=== PATIENT | female | born 1995 | race Caucasian/White ===

== ENCOUNTER 2023-08-23 13:01 | Outpatient (OUT) | payer OTHER, SELFPAY ==
--- NOTE | 2023-08-23 | US_ITS ---
[address] [address] Patient Name: ADDISON ARAGON MRN: [id number] date: 1995 Sex: F Assigned Patient Location: US Current Patient Location: LAB Accession/Order Number: [id number] Exam Date: 08/23/2023 13:04 Report Date: 08/23/2023 15:34 At the request of: ROSANNE HILL Procedure: US OB transvaginal EXAMINATION: US OB transvaginal HISTORY: MISSED MENSES COMPARISON: No relevant comparison available. FINDINGS: [place] intrauterine gestation Gestational sac: 3.2 cm, 8 weeks 2 days CRL: 3.0 cm, 9 weeks 6 days Yolk sac: 3.9 mm Heart rate: 174 bpm Cervix: Closed, 4.7 cm The uterus is normal, retroverted, anteflexed The ovaries are normal. Left ovarian corpus luteal cyst Clinical age: 10 weeks 0 days Clinical ALINA: 03/20/2024 Ultrasound age: 9 weeks 6 days Ultrasound ALINA: 03/21/2024 US/US OB transvaginal IMPRESSION: Viable [place] intrauterine gestation measuring 9 weeks 6 days Electronically authenticated by: HERACLIO GONZALEZ Date: 08/23/2023 15:34
== END 2023-08-23 13:02 | disposition home or self-care (01) ==
LOC: US 13:02
PROVIDERS: Visit Provider Obstetrics & Gynecology
DX: Z34.91 Encounter for supervision of normal pregnancy, unspecified, first trimester (principal); N92.6 Irregular menstruation, unspecified
CPT/HCPCS: 76817

== ENCOUNTER 2023-08-23 14:05 | Outpatient (OUT) | payer BC, SELFPAY ==
[2023-08-23 15:10] LABS: Estimated Average Glucose 103 mg/dL; Glycohemoglobin A1C 5.2 % (4.5-6.2)
[2023-08-23 15:18] LABS: Basophils Percent Auto 0.4 % (0.2-2.0); Eosinophils Absolute Auto 0.2 10^3/uL (0.0-0.7); Eosinophils Percent Auto 1.6 % (0.9-7.0); Hematocrit 38.5 % (36.0-48.0); Hemoglobin 12.7 g/dL (12.0-16.0); Immature Granulocytes Abs Auto 0.04 10^3/uL (0.00-0.03); Immature Granulocytes Pct Auto 0.4 % (0.0-0.5); Lymphocytes Absolute Auto 1.9 10^3/uL (1.2-3.8); Lymphocytes Percent Auto 17.6 % (20.5-60.0); Mean Corpuscular Hemoglobin 29.9 pg (26.7-34.0); Mean Corpuscular Volume 90.6 fL (81.0-99.0); Mean Platelet Volume 9.8 fL (9.5-13.5); Monocytes Absolute Auto 0.4 10^3/uL (0.3-0.8); Monocytes Percent Auto 3.9 % (1.7-12.0); Neutrophils Absolute Auto 8.4 10^3/uL (1.4-6.5); Neutrophils Percent Auto 76.1 % (43.0-75.0); Platelet Count 363 10^3/uL (150-450); Red Blood Count 4.25 10^6/uL (4.20-5.40); Red Cell Distribution Width 13.2 % (11.0-15.0)
[2023-08-23 15:47] LABS: Thyroid Stimulating Hormone 0.756 uIU/mL (0.358-3.740)
[2023-08-24 06:08] LABS: HBsAg Screen Negative (Negative); HCV Ab Non Reactive (Non Reactive); HIV Ab/p24 Ag Screen Non Reactive (Non Reactive); Rubella Antibodies, IgG 3.68 index (Immune >0.99)
[2023-08-24 12:08] LABS: Rapid Plasma Reagin, Quant Non Reactive titer (NonRea<1:1)
== END 2023-08-23 14:06 | disposition home or self-care (01) ==
PROVIDERS: Visit Provider Obstetrics & Gynecology
DX: Z34.80 Encounter for supervision of other normal pregnancy, unspecified trimester (principal); N92.6 Irregular menstruation, unspecified
CPT/HCPCS: 36415; 76817; 83036; 84443; 85025; 86592; 86762; 86803; 86850; 86900; 86901; 87086; 87340; 87389

== ENCOUNTER 2023-10-10 20:03 | Outpatient (REF) | payer BC, SELFPAY ==
[2023-10-15 16:09] LABS: Age Gdln ACOG Testing Note (.); IGP, rfx Aptima HPV ASCU Note (.)
== END 2023-10-10 20:04 | disposition home or self-care (01) ==
LOC: LAB 20:03
PROVIDERS: Visit Provider Physician Assistant
DX: Z01.419 Encounter for gynecological examination (general) (routine) without abnormal findings (principal)
CPT/HCPCS: G0145

== ENCOUNTER 2023-11-07 10:35 | Outpatient (OUT) | payer BC, SELFPAY ==
--- NOTE | 2023-11-07 10:39 | US_ITS ---
[address] [address] Patient Name: ADDISON ARAGON MRN: [id number] date: 1995 Sex: F Assigned Patient Location: [facility] Current Patient Location: [facility] Accession/Order Number: [id number] Exam Date: 11/07/2023 10:39 Report Date: 11/07/2023 12:01 At the request of: ROSANNE HILL Procedure: US OB anatomy EXAMINATION: US OB anatomy, US OB cervical length HISTORY: ANATOMY COMPARISON: No relevant comparison available. TECHNIQUE: Transabdominal sonographic examination was performed for obstetrical and evaluation. FINDINGS: Number: 1 Heart Rate: 144.0 bpm H.B. /min Amniotic Fluid Volume: Subjectively normal position: Variable Placental Location: ANTERIOR, placental edge 5.2 cm from the internal os Cervix Length: 4.5 cm , closed Normal anatomy: Lateral ventricles, cerebellum, posterior fossa, nose, lips, orbits, four-chamber heart, RVOT, LVOT, diaphragm, stomach, abdominal cord insertion, bladder, umbilical arteries, three-vessel cord, spine, extremities Suboptimal visualization: Kidneys BIOMETRY: BPD: 4.8 cm 20 weeks 3 days , 34% HC: 18.2 cm 20 weeks 4 days, 29% AC: 15.5 cm 20 weeks 5 days, 37% FL: 3.4 cm 20 weeks 4 days , 30% EFW:365.2 grams; 13 ounces, 32% FL/AC: 21.7 FL/BPD: 70.2 HC/AC: 1.2 GESTATIONAL AGE: Age by EDC: 20 weeks 6 days Age by current US: 20 weeks 4 days ALINA by current US: 03/22/2024 ALINA by EDC: 03/20/2024 US/US OB anatomy IMPRESSION: Suboptimal visualization of the kidneys, otherwise normal anatomy scan *Reference: [facility] Practice Guideline for the performance of Obstetric Ultrasound Examinations, July 08, 2007. Electronically authenticated by: HERACLIO GONZALEZ Date: 11/07/2023 12:01
--- NOTE | 2023-11-07 10:39 | US_ITS ---
[address] [address] Patient Name: ADDISON ARAGON MRN: [id number] date: 1995 Sex: F Assigned Patient Location: [facility] Current Patient Location: [facility] Accession/Order Number: [id number] Exam Date: 11/07/2023 10:39 Report Date: 11/07/2023 12:01 At the request of: ROSANNE HILL Procedure: US OB cervical length EXAMINATION: US OB anatomy, US OB cervical length HISTORY: ANATOMY COMPARISON: No relevant comparison available. TECHNIQUE: Transabdominal sonographic examination was performed for obstetrical and evaluation. FINDINGS: Number: 1 Heart Rate: 144.0 bpm H.B. /min Amniotic Fluid Volume: Subjectively normal position: Variable Placental Location: ANTERIOR, placental edge 5.2 cm from the internal os Cervix Length: 4.5 cm , closed Normal anatomy: Lateral ventricles, cerebellum, posterior fossa, nose, lips, orbits, four-chamber heart, RVOT, LVOT, diaphragm, stomach, abdominal cord insertion, bladder, umbilical arteries, three-vessel cord, spine, extremities Suboptimal visualization: Kidneys BIOMETRY: BPD: 4.8 cm 20 weeks 3 days , 34% HC: 18.2 cm 20 weeks 4 days, 29% AC: 15.5 cm 20 weeks 5 days, 37% FL: 3.4 cm 20 weeks 4 days , 30% EFW:365.2 grams; 13 ounces, 32% FL/AC: 21.7 FL/BPD: 70.2 HC/AC: 1.2 GESTATIONAL AGE: Age by EDC: 20 weeks 6 days Age by current US: 20 weeks 4 days ALINA by current US: 03/22/2024 ALINA by EDC: 03/20/2024 US/US OB cervical length IMPRESSION: Suboptimal visualization of the kidneys, otherwise normal anatomy scan *Reference: [facility] Practice Guideline for the performance of Obstetric Ultrasound Examinations, July 08, 2007. Electronically authenticated by: HERACLIO GONZALEZ Date: 11/07/2023 12:01
--- OUTSIDE RECORDS SUMMARY | 2023-11-07 10:42 | XMS_ITS | CCD ---
Author Name Unknown Address [id number] [place] [phone] Organization [facility] Care Team Providers Care Fishing Tackle Repairer Name Role Phone CHRISTO MCCOY Admitting Unavailable CHRISTO MCCOY Attending Unavailable CHRISTO MCCOY Consulting Unavailable CHRISTO MCCOY Admitting Unavailable CHRISTO MCCOY Attending Unavailable CHRISTO MCCOY Consulting Unavailable MAXIMINO GONZALEZ Attending Unavailable ROSANNE HILL Attending Unavailable ROSANNE HILL Attending Unavailable Problems Problem Classification Problem Date Documented Date Episodic/Chronic Immunizations and screening for infectious disease (1 source) Encounter for screening for infections with a predominantly sexual mode of transmission; Translations: [ENC SCREEN INFECTIONS SEXL TRANSMS] Onset: 06-04-2019 Episodic Other screening for suspected conditions (not mental disorders or infectious disease) (4 sources) Encounter for screening for malignant neoplasm of cervix; Translations: [ENC SCREENING MALIG NEOPLASM CERV] Onset: 06-02-2019 Episodic Results Test Name Value Interpretation Reference Range Facility [facility] PROGESTERONE, LC/MSon 07-30-2019 [facility] Progesterone LCMS 67 ng/dL Normal [facility] Comment on above: Result Comment: Adul t Female Follicular 15 - 70 Luteal 35 - 290 Performed By: #### C BC #### [facility] [address] [address] Ricardo Yuen FREE TESTOSTERONEon 07-28-20 19 Free Testosterone(Direct) 1.9 pg/mL Normal 0.0-4.2 [facility] Comment on above: Performed By: #### F RETEST #### [facility] [address] [address] Ricardo Yuen INSULINon 07-28-2019 Insulin 6.6 uIU/mL Normal 2.6-24.9 [facility] Comment on above: Performed By: #### C BC #### [facility] [address] [place] [address] Ricardo Yuen DHEA-SULFATEon 07-27-2019 DHEA-Sulfate 194.8 ug/dL Normal 84.8-378.0 [facility] Comment on above: Performed By: #### D MATT #### [facility] [address] [place] [address] Ricardo Yuen FSHon 07-27-2019 FSH 7.0 mIU/mL Normal [facility] Comment on above: Result Comment: Adul t Female: Follicular phase 3.5 - 12.5 Ovulation phase 4.7 - 21.5 Luteal phase 1.7 - 7.7 Postmenopausal 25.8 - 134.8 Performed By: #### L BCFS #### [facility] [address] [place] [address] Ricardo Yuen PROLACTINon 07-27-2019 Prolactin 13.1 ng/mL Normal 4.8-23.3 [facility] Comment on above: Performed By: #### P ROLAC #### [facility] [address] [place] [address] Ricardo Yuen CBC AUTO DIFFon 07-26-2019 Basophils (Bld) [#/Vol] 0.1 103/ul Normal 0.0-0.1 [facility] Comment on above: Performed By: #### C BC #### [facility] [address] [place] [address] Ricardo Alpa Basophils/100 WBC (Bld) 0.9 % Normal 0.2-2.0 [facility] Comment on above: Performed By: #### C BC #### [facility] [address] [place], [place] [id number] Ricardo Alpa Eosinophils (Bld) [#/Vol] 0.2 103/ul Normal 0.0-0.7 [facility] Comment on above: Performed By: #### C BC #### [facility] [address] [place] [address] Ricardo Alpa Eosinophils/100 WBC (Bld) 3.9 % Normal 0.9-7.0 [facility] Comment on above: Performed By: #### C BC #### [facility] [address] [place] [address] Ricardo Alpa Erythrocyte distribution width (RBC) [Ratio] 13.0 % Normal 11.0-15.0 [facility] Comment on above: Performed By: #### C BC #### [facility] [address] [place] [address] Ricardo Alpa Hematocrit (Bld) [Volume fraction] 44.0 % Normal 36.0-48.0 [facility] Comment on above: Performed By: #### C BC #### [facility] [address] [place] [address] Ricardo Alpa Hemoglobin (Bld) [Mass/Vol] 14.6 g/dL Normal 12.0-16.0 [facility] Comment on above: Performed By: #### C BC #### [facility] [address] [place] [address] Ricardo Alpa IG # 0.01 10e3/ul Normal 0.00-0.03 [facility] Comment on above: Performed By: #### C BC #### [facility] [address] [place] [address] Ricardo Alpa IG % 0.2 % Normal 0.0-0.5 [facility] Comment on above: Performed By: #### C BC #### [facility] [address] [place], [place] [id number] Ricardo Alpa Lymphocytes (Bld) [#/Vol] 1.7 103/ul Normal 1.2-3.8 [facility] Comment on above: Performed By: #### C BC #### [facility] [address] [place] [address] Ricardo Alpa Lymphocytes/100 WBC (Bld) 29.0 % Normal 20.5-60.0 [facility] Comment on above: Performed By: #### C BC #### [facility] [address] [place], [place] [id number] Ricardo Alpa MANUAL DIFF REQ NO Normal [facility] Comment on above: Performed By: #### C BC #### [facility] [address] [place], [place] [id number] Ricardo Alpa MCH (RBC) [Entitic mass] 30.0 pg Normal 26.7-34.0 [facility] Comment on above: Performed By: #### C BC #### [facility] [address] [place], [place] [id number] Ricardo Yuen MCHC (RBC) [Mass/Vol] 33.2 g/dL Normal 29.9-35.2 [facility] Comment on above: Performed By: #### C BC #### [facility] [address] [place], [place] [id number] Ricardo Yuen MCV (RBC) [Entitic vol] 90.5 fL Normal 81.0-99.0 [facility] Comment on above: Performed By: #### C BC #### [facility] [address] [place] [address] Ricardo Alpa Monocytes (Bld) [#/Vol] 0.3 103/ul Normal 0.3-0.8 [facility] Comment on above: Performed By: #### C BC #### [facility] [address] [place] [address] Ricardo Cruzen Monocytes/100 WBC (Bld) 5.5 % Normal 1.7-12.0 [facility] Comment on above: Performed By: #### C BC #### [facility] [address] [place] [address] Ricardo Alpa Neutrophils (Bld) [#/Vol] 3.4 103/ul Normal 1.4-6.5 [facility] Comment on above: Performed By: #### C BC #### [facility] [address] [place] [address] Ricardo Alpa Neutrophils/100 WBC (Bld) 60.5 % Normal 43.0-75.0 [facility] Comment on above: Performed By: #### C BC #### [facility] [address] [place], [place] [id number] Ricardoshawna Yuen Platelet mean volume (Bld) [Entitic vol] 10.2 fL Normal 9.5-13.5 [facility] Comment on above: Performed By: #### C BC #### [facility] [address] [place], [place] [address] Ricardoshawna Yuen Platelets (Bld) [#/Vol] 282 103/ul Normal 150-450 [facility] Comment on above: Performed By: #### C BC #### [facility] [address] [place], [place] [address] Ricardo Alpa RBC (Bld) [#/Vol] 4.86 106/ul Normal 4.20-5.40 [facility] Comment on above: Performed By: #### C BC #### [facility] [address] [place], [place] [address] Ricardo Alpa WBC (Bld) [#/Vol] 5.7 103/ul Normal 4.0-11.0 [facility] Comment on above: Performed By: #### C BC #### [facility] [address] [place] [address] Ricardoshawna Yuen GLYCOHEMOGLOBIN A1Con 2018 Glucose [Mass/Vol] 105 mg/dL Normal [facility] Comment on above: Performed By: #### A 1C #### [facility] [address] [place] [address] Ricardo Alpa HbA1c (Bld) [Mass fraction] 5.3 % Normal <=6.0 [facility] Comment on above: Performed By: #### A 1C #### [facility] [address] [place] [address] Ricardo Alpa LIPID PROFILEon 07-26-2019 CHOL-HDL RATIO NORM SEE BELOW Normal [facility] Comment on above: Result Comment: 3.3 - 4.4 LOW RISK 4.4 - 7.1 AVERAGE RISK 7.1 - 11.0 MODERATE RISK >11.0 HIGH RISK Performed By: #### C MP, TSH, LIPID #### [facility] [address] [place] [address] Ricardo Alpa Cholesterol [Mass/Vol] 174 mg/dL Normal <=200 [facility] Comment on above: Performed By: #### C MP, TSH, LIPID #### [facility] [address] [place] [address] Ricardo Alpa Cholesterol in HDL [Mass/Vol] > or = 60 mg/dl - LOW CARDIOVASCULAR RISK <40 mg/dl - HIGH CARDIOVASCULAR RISK Normal [facility] Comment on above: Performed By: #### C MP, TSH, LIPID #### [facility] [address] [place], [place] [address] Ricardo Alpa Cholesterol in HDL [Mass/Vol] 76 mg/dL Normal [facility] Comment on above: Performed By: #### C MP, TSH, LIPID #### [facility] [address] [place], [place] [address] Ricardo Alpa Cholesterol in LDL [Mass/Vol] 90.4 mg/dL Normal [facility] Comment on above: Performed By: #### C MP, TSH, LIPID #### [facility] [address] [place], [place] [address] Ricardo Alpa Cholesterol in LDL [Mass/Vol] SEE BELOW Normal [facility] Comment on above: Result Comment: <100 mg/dl OPTIMAL 100 - 129 mg/dl NEAR OR ABOVE OPTIMAL 130 - 159 mg/dl BORDERLINE HIGH 160 - 189 mg/dl HIGH >190 mg/dl VERY HIGH Performed By: #### C MP, TSH, LIPID #### [facility] [address] [place], [place] [address] Ricardo Alpa Cholesterol.total/Cho lesterol in HDL [Mass ratio] 2.3 {ratio} Normal [facility] Comment on above: Performed By: #### C MP, TSH, LIPID #### [facility] [address] [place], [place] [address] Ricardo Alpa Triglyceride [Mass/Vol] 38 mg/dL Normal <=150 [facility] Comment on above: Performed By: #### C MP, TSH, LIPID #### [facility] [address] [place], [place] [address] Ricardo Alpa VLDL CALC 7.6 mg/dL Normal [facility] Comment on above: Performed By: #### C MP, TSH, LIPID #### [facility] [address] [place], [place] [address] Ricardo Alpa PROF 14(COMP METB)on 019 Albumin [Mass/Vol] 4.6 g/dL Normal 3.5-5.0 [facility] Comment on above: Performed By: #### C MP, TSH, LIPID #### [facility] [address] [place], [place] [address] Ricardo Alpa Albumin/Globulin [Mass ratio] 1.3 {ratio} Normal [facility] Comment on above: Performed By: #### C MP, TSH, LIPID #### [facility] [address] [place], [place] [address] Ricardo Alpa ALP [Catalytic activity/Vol] 56 U/L Normal 38-126 [facility] Comment on above: Performed By: #### C MP, TSH, LIPID #### [facility] [address] [place], [place] [address] Ricardo Alpa ALT [Catalytic activity/Vol] 15 U/L Normal 9-52 [facility] Comment on above: Performed By: #### C MP, TSH, LIPID #### [facility] [address] [phone] Ricardo Alpa Anion gap [Moles/Vol] 11.8 mmol/L Normal [facility] Comment on above: Performed By: #### C MP, TSH, LIPID #### [facility] [address] [place], [place] [address] Ricardo Alpa AST [Catalytic activity/Vol] 13 U/L Critically low 14-36 [facility] Comment on above: Performed By: #### C MP, TSH, LIPID #### [facility] [address] [place], [place] [address] Ricardo Alpa Bilirubin Ql (U) 0.3 mg/dL Normal 0.2-1.3 [facility] Comment on above: Performed By: #### C MP, TSH, LIPID #### [facility] [address] [place], [place] [address] Ricardo Alpa Calcium [Mass/Vol] 9.4 mg/dL Normal 8.4-10.2 [facility] Comment on above: Performed By: #### C MP, TSH, LIPID #### [facility] [address] [place], [place] [address] Ricardo Alpa Chloride [Moles/Vol] 101 mmol/L Normal 98-107 [facility] Comment on above: Performed By: #### C MP, TSH, LIPID #### [facility] [address] [place], [place] [address] Ricardo Alpa CO2 [Moles/Vol] 29.2 mmol/L Normal 22.0-30.0 [facility] Comment on above: Performed By: #### C MP, TSH, LIPID #### [facility] [address] [place] [phone] Ricardo Alpa Creatinine [Mass/Vol] 0.66 mg/dL Normal 0.52-1.04 [facility] Comment on above: Performed By: #### C MP, TSH, LIPID #### [facility] [address] [place] [phone] Ricardo Alpa EGFR-AF SINGAPOREAN >60 Normal >=60 [facility] Comment on above: Performed By: #### C MP, TSH, LIPID #### [facility] [address] [phone] Ricardo Alpa EGFR-NON AF SINGAPOREAN >60 Normal >=60 [facility] Comment on above: Performed By: #### C MP, TSH, LIPID #### [facility] [address] [phone] Ricardo Alpa Globulin (S) [Mass/Vol] 3.5 g/dL Normal [facility] Comment on above: Performed By: #### C MP, TSH, LIPID #### [facility] [address] [phone] Ricardo Alpa Glucose [Mass/Vol] 88 mg/dL Normal 74-106 [facility] Comment on above: Performed By: #### C MP, TSH, LIPID #### [facility] [address] [phone] Ricardo Alpa Potassium [Moles/Vol] 4.0 mmol/L Normal 3.4-5.0 [facility] Comment on above: Performed By: #### C MP, TSH, LIPID #### [facility] [address] [phone] Ricardo Alpa Protein [Mass/Vol] 8.1 g/dL Normal 6.1-8.2 [facility] Comment on above: Performed By: #### C MP, TSH, LIPID #### [facility] [address] [address] Ricardo Alpa Sodium [Moles/Vol] 138 mmol/L Normal 137-145 [facility] Comment on above: Performed By: #### C MP, TSH, LIPID #### [facility] [address] [phone] Ricardo Alpa Urea nitrogen [Mass/Vol] 13.0 mg/dL Normal 7.0-17.0 [facility] Comment on above: Performed By: #### C MP, TSH, LIPID #### [facility] [address] [place] [address] Ricardo Alpa Urea nitrogen/Creatinine [Mass ratio] 19.7 mg/mg Normal [facility] Comment on above: Performed By: #### C MP, TSH, LIPID #### [facility] [address] [place] [address] Ricardo Alpa TSHon 07-26-2019 TSH Qn 0.572 uIU/mL Normal 0.470-4.680 [facility] Comment on above: Performed By: #### C MP, TSH, LIPID #### [facility] [address] [place] [address] Ricardo Alpa TSH Qn SEE BELOW Normal [facility] Comment on above: Result Comment: <0.3 4 UIU/ml HYPERTHYROID 0.34-5.60 UIU/ml EUTHYROID >5.60 UIU/ml HYPOTHYROID Performed By: #### C MP, TSH, LIPID #### [facility] [address] [place] [address] Ricardo Alpa PAP ACOG PANEL 3: 21 to 28on 06-05-2019 Age Gdln ACOG Testing Normal [facility] Comment on above: Performed By: #### [id number] #### [facility] [address] [place] [address] Ricardo Alpa Chlamydia, Nuc. Acid Amp Negative Normal Negative [facility] Comment on above: Result Comment: Perf ormed at: =G Performed By: #### [id number] #### [facility] [address] [place] [address] Ricardo Yuen DIAGNOSIS: Comment Normal [facility] Comment on above: Result Comment: NEGA TIVE FOR INTRAEPITHELIAL LESION OR MALIGNANCY. THIS SPECIMEN WAS RESCREENED PART OF OUR CHARGE MANAGER PROGRAM. Performed at: WB Performed By: #### [id number] #### [facility] [address] [place] [address] Ricardo Yuen Gonococcus, Nuc. Acid Amp Negative Normal Negative [facility] Comment on above: Result Comment: Perf ormed at: =G Performed By: #### [id number] #### [facility] [address] [place] [address] Ricardo Yuen Methodology: Comment Normal [facility] Comment on above: Result Comment: This liquid based ThinPrep(R) pap test was screened with the use of an image guided system. Performed at: WB Performed By: #### [id number] #### [facility] [address] [place] [address] Ricardo Alpa Note: Comment Normal [facility] Comment on above: Result Comment: The Pap smear is a screening test designed to aid in the detection of premalignant and malignant conditions of the uterine cervix. It is not a diagnostic procedure and should not be used as the sole means of detecting cervical cancer. Both false-positive and false-negative reports do occur. . Performed at: WB Performed By: #### [id number] #### [facility] [address] [place] [address] Ricardo Alpa Performed by: Comment Normal [facility] Comment on above: Result Comment: Nasima Blankenship, Auto Brake Mechanic (ASCP) Performed at: WB Performed By: #### [id number] #### [facility] [address] [place] [address] Ricardo Yuen QC reviewed by: Comment Normal [facility] [place] Comment on above: Result Comment: Joan Bautista, Auto Brake Mechanic (ASCP) Performed at: WB Performed By: #### [id number] #### [facility] [address] [place], [place] [address] Ricardoshawna Yuen Reflex Criteria: Comment [facility] Comment on above: Result Comment: The HPV DNA reflex criteria were not met with this specimen result therefore, no HPV testing was performed. . Performed at: WB Performed By: #### [id number] #### [facility] [address] [place], [place] [address] Ricardoshawna Yuen Specimen adequacy: Comment Normal [facility] Comment on above: Result Comment: Sati sfactory for evaluation. Endocervical and/or squamous metaplastic cells (endocervical component) are present. Performed at: WB Performed By: #### [id number] #### [facility] [address] [place], [place] [address] Ricardoshawna Yuen . . Normal [facility] Comment on above: Result Comment: Perf ormed at: WB Performed By: #### [id number] #### [facility] [address] [place], [place] [address] Ricardo Yuen Encounters Encounter Date Encounter Type Care Provider Facility Start: 10-10-2023 End: 10-10-2023 ambulatory MAXIMINO CARLOS Not Available Start: 09-12-2023 End: 09-12-2023 ambulatory ROSANNE SERGIO Not Available Start: 08-23-2023 End: 08-23-2023 ambulatory ROSANNE SERGIO Not Available Start: 07-26-2019 End: 07-27-2019 Patient encounter procedure CHRISTO MCCOY Facility:[facility] Start: 06-02-2019 End: 06-02-2019 Patient encounter procedure CHRISTO MCCOY Facility: Payers Date Payer Category Payer Unknown [id number] 1995 Unknown [id number] [id number] [id number] 1994 Unknown [id number] 2.16.84 [id number] 1994 Unknown [id number] 1994 Unknown [id number] 1994 Unknown [id number] 1959 Unknown [id number] Summary Purpose Family History No Family History Records FoundNo Family History Records Found Advance Directives No Advanced Directives Records FoundNo Advanced Directives Records Found Additional Source Comments INFORMATION SOURCE (unrecogn ized section and content) DATE CREATED AUTHOR 07/30/2019 [facility] DATE CREATED AUTHOR AUTHOR'S ORGANIZ ATION 10/11/2023 [facility] EPIC FOR RECORDS PERTAINING TO PATIENTS WHO ARE OR HAVE BEEN ENROLLED IN A CHEMICAL DEPENDENCY/SUBSTANCEABUSE PROGRAM, SOME INFORMATION MAY BE OMITTED. This clinical summary was aggregated from multiple sources. Caution should be exercised in using it in the provision of clinical care. This summary normalizes information from multiple sources, and as a consequence, information in this document may materially change the coding, format and clinical context of patient data. In addition, data may be omitted in some cases. CLINICAL DECISIONS SHOULD BE BASED ON THE PRIMARY CLINICAL RECORDS. [facility] [employer] provides no warranty or guarantee of the accuracy or completeness of information in this document.
== END 2023-11-07 10:36 | disposition home or self-care (01) ==
LOC: NOMS 10:36
PROVIDERS: Visit Provider Obstetrics & Gynecology
DX: Z34.92 Encounter for supervision of normal pregnancy, unspecified, second trimester (principal); Z36.89 Encounter for other specified antenatal screening
CPT/HCPCS: 36415; 76805; 76817; 82105

== ENCOUNTER 2023-11-07 12:18 | Outpatient (OUT) | payer BC, SELFPAY ==
--- OUTSIDE RECORDS SUMMARY | 2023-11-07 12:17 | XMS_ITS | CCD ---
Author Name Unknown Address [address] [place] [id number] Organization [facility] Care Team Providers Care Legal Entity Controller Name Role Phone CHRISTO MCCOY Admitting Unavailable [...] 07-30-2019 17-OH Progesterone LCMS 67 ng/dL Normal [facility] Comment on above: Result Comment: Adul t Female Follicular 15 - 70 Luteal 35 - 290 Performed By: #### C BC #### [facility] [address] [address] Ricardo Yuen FREE TESTOSTERONEon 07-28-20 19 Free Testosterone(Direct) 1.9 pg/mL Normal 0.0-4.2 [facility] Comment on above: Performed By: #### F RETEST #### [facility] [address] [address] Ricardo Yuen INSULINon 07-28-2019 Insulin 6.6 uIU/mL Normal 2.6-24.9 [facility] Comment on above: Performed By: #### C BC #### [facility] [address] [place] [address] Ricardo Yuen DHEA-SULFATEon 07-27-2019 DHEA-Sulfate 194.8 ug/dL Normal 84.8-378.0 [facility] Comment on above: Performed By: #### D MATT #### [facility] [address] [place] [address] Ricardo Yuen FSHon 07-27-2019 FSH 7.0 mIU/mL Normal [facility] Comment on above: Result Comment: Adul t Female: Follicular phase 3.5 - 12.5 Ovulation phase 4.7 - 21.5 Luteal phase 1.7 - 7.7 Postmenopausal 25.8 - 134.8 Performed By: #### L BCFS #### [facility] [address] [place] [address] Ricardo Yuen PROLACTINon 07-27-2019 Prolactin 13.1 ng/mL Normal 4.8-23.3 [facility] Comment on above: Performed By: #### P ROLAC #### [facility] [address] [place] [address] Ricardo Yuen CBC AUTO DIFFon 07-26-2019 Basophils (Bld) [#/Vol] 0.1 103/ul Normal 0.0-0.1 [facility] Comment on above: Performed By: #### C BC #### [facility] [address] [place] [address] Ricardo Alpa Basophils/100 WBC (Bld) 0.9 % Normal 0.2-2.0 [facility] Comment on above: Performed By: #### C BC #### [facility] [address] [place], [place] [id number] Ricardo Alpa Eosinophils (Bld) [#/Vol] 0.2 103/ul Normal 0.0-0.7 [facility] Comment on above: Performed By: #### C BC #### [facility] [address] [place] [address] Ricardo Alpa Eosinophils/100 WBC (Bld) 3.9 % Normal 0.9-7.0 [facility] Comment on above: Performed By: #### C BC #### [facility] [address] [place] [address] Ricadro Alpa Erythrocyte distribution width (RBC) [Ratio] 13.0 % Normal 11.0-15.0 [facility] Comment on above: Performed By: #### C BC #### [facility] [address] [place] [address] Ricardo Alpa Hematocrit (Bld) [Volume fraction] 44.0 % Normal 36.0-48.0 [facility] Comment on above: Performed By: #### C BC #### [facility] [address] [place] [address] Ricardo Alpa Hemoglobin (Bld) [Mass/Vol] 14.6 g/dL Normal 12.0-16.0 [facility] Comment on above: Performed By: #### C BC #### [facility] [address] [place] [address] Ricardo Alpa IG # 0.01 10e3/ul Normal 0.00-0.03 [facility] Comment on above: Performed By: #### C BC #### [facility] [address] [place] [address] Ricardo Alpa IG % 0.2 % Normal 0.0-0.5 [facility] Comment on above: Performed By: #### C BC #### [facility] [address] [place], [place] [phone] Ricardo Alpa Lymphocytes (Bld) [#/Vol] 1.7 103/ul Normal 1.2-3.8 [facility] Comment on above: Performed By: #### C BC #### [facility] [address] [place] [address] Ricardo Alpa Lymphocytes/100 WBC (Bld) 29.0 % Normal 20.5-60.0 [facility] Comment on above: Performed By: #### C BC #### [facility] [address] [place], [place] [phone] Ricardo Alpa MANUAL DIFF REQ NO Normal [facility] Comment on above: Performed By: #### C BC #### [facility] [address] [place], [place] [phone] Ricardo Alpa MCH (RBC) [Entitic mass] 30.0 pg Normal 26.7-34.0 [facility] Comment on above: Performed By: #### C BC #### [facility] [address] [place], [place] [id number] Ricardo Yuen MCHC (RBC) [Mass/Vol] 33.2 g/dL Normal 29.9-35.2 [facility] Comment on above: Performed By: #### C BC #### [facility] [address] [place], [place] [phone] Ricardo Yuen MCV (RBC) [Entitic vol] 90.5 fL Normal 81.0-99.0 [facility] Comment on above: Performed By: #### C BC #### [facility] [address] [place] [address] Ricardo Alpa Monocytes (Bld) [#/Vol] 0.3 103/ul Normal 0.3-0.8 [facility] Comment on above: Performed By: #### C BC #### [facility] [address] [place] [address] Ricardo Cruzen Monocytes/100 WBC (Bld) 5.5 % Normal 1.7-12.0 [facility] Comment on above: Performed By: #### C BC #### [facility] [address] [place] [address] Ricardo Alpa Neutrophils (Bld) [#/Vol] 3.4 103/ul Normal 1.4-6.5 [facility] Comment on above: Performed By: #### C BC #### [facility] [address] [place] [address] Ricardo Alpa Neutrophils/100 WBC (Bld) 60.5 % Normal 43.0-75.0 [facility] Comment on above: Performed By: #### C BC #### [facility] [address] [place], [place] [phone] Ricardoshawna Yuen Platelet mean volume (Bld) [Entitic vol] 10.2 fL Normal 9.5-13.5 [facility] Comment on above: Performed By: #### C BC #### [facility] [address] [place], [place] [address] Ricardoshawna Yuen Platelets (Bld) [#/Vol] 282 103/ul Normal 150-450 [facility] Comment on above: Performed By: #### C BC #### [facility] [address] [place], [place] [address] Ricardo Alpa RBC (Bld) [#/Vol] 4.86 106/ul Normal 4.20-5.40 [facility] Comment on above: Performed By: #### C BC #### [facility] [address] [place], [place] [address] Ricardo Alpa WBC (Bld) [#/Vol] 5.7 103/ul Normal 4.0-11.0 [facility] Comment on above: Performed By: #### C BC #### [facility] [address] [place] [address] Ricardoshawna Yuen GLYCOHEMOGLOBIN A1Con 2018 Glucose [Mass/Vol] 105 mg/dL Normal [facility] Comment on above: Performed By: #### A 1C #### [facility] [address] [place] [address] Ricardo Alpa HbA1c (Bld) [Mass fraction] 5.3 % Normal <=6.0 [facility] Comment on above: Performed By: #### A 1C #### [facility] [address] [place] [address] Ricardo Alpa LIPID PROFILEon 07-26-2019 CHOL-HDL RATIO NORM SEE BELOW Normal [facility] Comment on above: Result Comment: 3.3 - 4.4 LOW RISK 4.4 - 7.1 AVERAGE RISK 7.1 - 11.0 MODERATE RISK >11.0 HIGH RISK Performed By: #### C MP, TSH, LIPID #### [facility] [address] [place] [address] Ricardo Alpa Cholesterol [Mass/Vol] 174 mg/dL Normal <=200 [facility] Comment on above: Performed By: #### C MP, TSH, LIPID #### [facility] [address] [place] [address] Ricardo Alpa Cholesterol in HDL [Mass/Vol] > or = 60 mg/dl - LOW CARDIOVASCULAR RISK <40 mg/dl - HIGH CARDIOVASCULAR RISK Normal [facility] Comment on above: Performed By: #### C MP, TSH, LIPID #### [facility] [address] [place], [place] [address] Ricardo Alpa Cholesterol in HDL [Mass/Vol] 76 mg/dL Normal [facility] Comment on above: Performed By: #### C MP, TSH, LIPID #### [facility] [address] [place], [place] [address] Ricardo Alpa Cholesterol in LDL [Mass/Vol] 90.4 mg/dL Normal [facility] Comment on above: Performed By: #### C MP, TSH, LIPID #### [facility] [address] [place], [place] [address] Ricardo Alpa Cholesterol in LDL [Mass/Vol] SEE BELOW Normal [facility] Comment on above: Result Comment: <100 mg/dl OPTIMAL 100 - 129 mg/dl NEAR OR ABOVE OPTIMAL 130 - 159 mg/dl BORDERLINE HIGH 160 - 189 mg/dl HIGH >190 mg/dl VERY HIGH Performed By: #### C MP, TSH, LIPID #### [facility] [address] [place], [place] [address] Ricardo Alpa Cholesterol.total/Cho lesterol in HDL [Mass ratio] 2.3 {ratio} Normal [facility] Comment on above: Performed By: #### C MP, TSH, LIPID #### [facility] [address] [place], [place] [address] Ricardo Alpa Triglyceride [Mass/Vol] 38 mg/dL Normal <=150 [facility] Comment on above: Performed By: #### C MP, TSH, LIPID #### [facility] [address] [place], [place] [address] Ricardo Alpa VLDL CALC 7.6 mg/dL Normal [facility] Comment on above: Performed By: #### C MP, TSH, LIPID #### [facility] [address] [place], [place] [address] Ricardo Alpa PROF 14(COMP METB)on 019 Albumin [Mass/Vol] 4.6 g/dL Normal 3.5-5.0 [facility] Comment on above: Performed By: #### C MP, TSH, LIPID #### [facility] [address] [place], [place] [address] Ricardo Alpa Albumin/Globulin [Mass ratio] 1.3 {ratio} Normal [facility] Comment on above: Performed By: #### C MP, TSH, LIPID #### [facility] [address] [place], [place] [address] Ricardo Alpa ALP [Catalytic activity/Vol] 56 U/L Normal 38-126 [facility] Comment on above: Performed By: #### C MP, TSH, LIPID #### [facility] [address] [place], [place] [address] Ricardo Alpa ALT [Catalytic activity/Vol] 15 U/L Normal 9-52 [facility] Comment on above: Performed By: #### C MP, TSH, LIPID #### [facility] [address] [place] [phone] Ricardo Alpa Anion gap [Moles/Vol] 11.8 mmol/L Normal [facility] Comment on above: Performed By: #### C MP, TSH, LIPID #### [facility] [address] [place], [place] [address] Ricardo Alpa AST [Catalytic activity/Vol] 13 U/L Critically low 14-36 [facility] Comment on above: Performed By: #### C MP, TSH, LIPID #### [facility] [address] [place], [place] [address] Ricardo Alpa Bilirubin Ql (U) 0.3 mg/dL Normal 0.2-1.3 [facility] Comment on above: Performed By: #### C MP, TSH, LIPID #### [facility] [address] [place], [place] [address] Ricardo Alpa Calcium [Mass/Vol] 9.4 mg/dL Normal 8.4-10.2 [facility] Comment on above: Performed By: #### C MP, TSH, LIPID #### [facility] [address] [place], [place] [address] Ricardo Alpa Chloride [Moles/Vol] 101 mmol/L Normal 98-107 [facility] Comment on above: Performed By: #### C MP, TSH, LIPID #### [facility] [address] [place], [place] [address] Ricardo Alpa CO2 [Moles/Vol] 29.2 mmol/L Normal 22.0-30.0 [facility] Comment on above: Performed By: #### C MP, TSH, LIPID #### [facility] [address] [place] [phone] Ricardo Alpa Creatinine [Mass/Vol] 0.66 mg/dL Normal 0.52-1.04 [facility] Comment on above: Performed By: #### C MP, TSH, LIPID #### [facility] [address] [place] [phone] Ricardo Alpa EGFR-AF JORDANIAN >60 Normal >=60 [facility] Comment on above: Performed By: #### C MP, TSH, LIPID #### [facility] [address] [phone] Ricardo Alpa EGFR-NON AF JORDANIAN >60 Normal >=60 [facility] Comment on above: Performed By: #### C MP, TSH, LIPID #### [facility] [address] [phone] Ricardo Alpa Globulin (S) [Mass/Vol] 3.5 g/dL Normal [facility] Comment on above: Performed By: #### C MP, TSH, LIPID #### [facility] [address] [phone] Ricardo Alpa Glucose [Mass/Vol] 88 mg/dL Normal 74-106 [facility] Comment on above: Performed By: #### C MP, TSH, LIPID #### [facility] [address] [phone] Ricardo Alpa Potassium [Moles/Vol] 4.0 mmol/L Normal 3.4-5.0 [facility] Comment on above: Performed By: #### C MP, TSH, LIPID #### [facility] [address] [phone] Ricardo Alpa Protein [Mass/Vol] 8.1 g/dL Normal 6.1-8.2 [facility] Comment on above: Performed By: #### C MP, TSH, LIPID #### [facility] [address] [address] Ricardo Alpa Sodium [Moles/Vol] 138 mmol/L Normal 137-145 [facility] Comment on above: Performed By: #### C MP, TSH, LIPID #### [facility] [address] [phone] Ricardo Alpa Urea nitrogen [Mass/Vol] 13.0 mg/dL Normal 7.0-17.0 [facility] Comment on above: Performed By: #### C MP, TSH, LIPID #### [facility] [address] [place] [address] Ricardo Alpa Urea nitrogen/Creatinine [Mass ratio] 19.7 mg/mg Normal [facility] Comment on above: Performed By: #### C MP, TSH, LIPID #### [facility] [address] [place] [address] Ricardo Alpa TSHon 07-26-2019 TSH Qn 0.572 uIU/mL Normal 0.470-4.680 [facility] Comment on above: Performed By: #### C MP, TSH, LIPID #### [facility] [address] [place] [address] Ricardo Alpa TSH Qn SEE BELOW Normal [facility] Comment on above: Result Comment: <0.3 4 UIU/ml HYPERTHYROID 0.34-5.60 UIU/ml EUTHYROID >5.60 UIU/ml HYPOTHYROID Performed By: #### C MP, TSH, LIPID #### [facility] [address] [place] [address] Ricardo Alpa PAP ACOG PANEL 3: 20 to 28on 06-05-2019 Age Gdln ACOG Testing Normal [facility] Comment on above: Performed By: #### [id number] #### [facility] [address] [place] [address] Ricardo Alpa Chlamydia, Nuc. Acid Amp Negative Normal Negative [facility] Comment on above: Result Comment: Perf ormed at: =G Performed By: #### [id number] #### [facility] [address] [place] [address] Ricardo Yuen DIAGNOSIS: Comment Normal [facility] Comment on above: Result Comment: NEGA TIVE FOR INTRAEPITHELIAL LESION OR MALIGNANCY. THIS SPECIMEN WAS RESCREENED PART OF OUR PARIMUTUEL CLERK PROGRAM. Performed at: WB Performed By: #### [id number] #### [facility] [address] [place] [address] Ricardo Yuen Gonococcus, Nuc. Acid Amp Negative Normal Negative [facility] Comment on above: Result Comment: Perf ormed at: =G Performed By: #### [id number] #### [facility] [address] [place] [address] Ricardo Yuen Methodology: Comment Normal [facility] Comment on above: Result Comment: This liquid based ThinPrep(R) pap test was screened with the use of an image guided system. Performed at: WB Performed By: #### [id number] #### [facility] [address] [place] [address] Ricardo Alpa Note: Comment Normal [facility] Comment on above: Result Comment: The Pap smear is a screening test designed to aid in the detection of premalignant and malignant conditions of the uterine cervix. It is not a diagnostic procedure and should not be used as the sole means of detecting cervical cancer. Both false-positive and false-negative reports do occur. . Performed at: WB Performed By: #### [id number] #### [facility] [address] [place] [address] Ricardo Alpa Performed by: Comment Normal [facility] Comment on above: Result Comment: Nasima Blankenship, Coal Miner (ASCP) Performed at: WB Performed By: #### [id number] #### [facility] [address] [place] [address] Ricardo Yuen QC reviewed by: Comment Normal [facility] Comment on above: Result Comment: Joan Bautista, Coal Miner (ASCP) Performed at: WB Performed By: #### [id number] #### [facility] [address] [place], [place] [address] Ricardoshawna Yuen Reflex Criteria: Comment [facility] Comment on above: Result Comment: The HPV DNA reflex criteria were not met with this specimen result therefore, no HPV testing was performed. . Performed at: WB Performed By: #### [id number] #### [facility] [address] [place], [place] [address] Ricardoshawna Yuen Specimen adequacy: Comment Normal [facility] Comment on above: Result Comment: Sati sfactory for evaluation. Endocervical and/or squamous metaplastic cells (endocervical component) are present. Performed at: WB Performed By: #### [id number] #### [facility] [address] [place], [place] [address] Ricardoshawna Yuen . . Normal [facility] Comment on above: Result Comment: Perf ormed at: WB Performed By: #### [id number] #### [facility] [address] [place], [place] [address] Ricardo Yuen Encounters Encounter Date Encounter Type Care Provider Facility Start: 10-10-2023 End: 10-10-2023 ambulatory MAXIMINO CARLOS Not Available Start: 09-12-2023 End: 09-12-2023 ambulatory ROSANNE SERGIO Not Available Start: 08-23-2023 End: 08-23-2023 ambulatory ROSANNE SERGIO Not Available Start: 07-26-2019 End: 07-27-2019 Patient encounter procedure CHRISTO MCCOY Facility:[facility] Start: 06-02-2019 End: 06-02-2019 Patient encounter procedure CHRISTO MCCOY Facility: Payers Date Payer Category Payer Unknown [id number] 1995 Unknown [id number] [id number] 1994 Unknown [id number] 2.16.84 [id number] 1994 Unknown [id number] 1994 Unknown [id number] 1994 Unknown [id number] 1959 Unknown [id number] Summary Purpose Family History No Family History Records FoundNo Family History Records Found Advance Directives No Advanced Directives Records FoundNo Advanced Directives Records Found Additional Source Comments INFORMATION SOURCE (unrecogn ized section and content) DATE CREATED AUTHOR 07/30/2019 [facility] DATE CREATED AUTHOR AUTHOR'S ORGANIZ ATION 10/11/2023 [facility] EPIC FOR RECORDS PERTAINING [...] BE BASED ON THE PRIMARY CLINICAL RECORDS. [facility] [employer] provides no warranty or guarantee of the accuracy or completeness of information in this document.
--- OUTSIDE RECORDS SUMMARY | 2023-11-07 12:22 | XMS_ITS | CCD ---
Author Name Unknown Address [address] [place] [id number] Organization [facility] Care Team Providers Care Assistant Restaurant General Manager Name Role Phone CHRISTO MCCOY Admitting Unavailable [...] 07-30-2019 17-OH Progesterone LCMS 67 ng/dL Normal [facility] Comment on above: Result Comment: Adul t Female Follicular 15 - 70 Luteal 35 - 290 Performed By: #### C BC #### [facility] [address] [address] Ricardo Yuen FREE TESTOSTERONEon 07-28-20 19 Free Testosterone(Direct) 1.9 pg/mL Normal 0.0-4.2 [facility] Comment on above: Performed By: #### F RETEST #### [facility] [address] [address] Ricardo Yuen INSULINon 07-28-2019 Insulin 6.6 uIU/mL Normal 2.6-24.9 [facility] Comment on above: Performed By: #### C BC #### [facility] [address] [place] [address] Ricardo Yuen DHEA-SULFATEon 07-27-2019 DHEA-Sulfate 194.8 ug/dL Normal 84.8-378.0 [facility] Comment on above: Performed By: #### D MATT #### [facility] [address] [place] [address] Ricardo Yuen FSHon 07-27-2019 FSH 7.0 mIU/mL Normal [facility] Comment on above: Result Comment: Adul t Female: Follicular phase 3.5 - 12.5 Ovulation phase 4.7 - 21.5 Luteal phase 1.7 - 7.7 Postmenopausal 25.8 - 134.8 Performed By: #### L BCFS #### [facility] [address] [place] [address] Ricardo Yuen PROLACTINon 07-27-2019 Prolactin 13.1 ng/mL Normal 4.8-23.3 [facility] Comment on above: Performed By: #### P ROLAC #### [facility] [address] [place] [address] Ricardo Yuen CBC AUTO DIFFon 07-26-2019 Basophils (Bld) [#/Vol] 0.1 103/ul Normal 0.0-0.1 [facility] Comment on above: Performed By: #### C BC #### [facility] [address] [place] [address] Ricardo Alpa Basophils/100 WBC (Bld) 0.9 % Normal 0.2-2.0 [facility] Comment on above: Performed By: #### C BC #### [facility] [address] [place], [place] [id number] Ricardo Alpa Eosinophils (Bld) [#/Vol] 0.2 103/ul Normal 0.0-0.7 [facility] Comment on above: Performed By: #### C BC #### [facility] [address] [place] [address] Ricardo Alpa Eosinophils/100 WBC (Bld) 3.9 % Normal 0.9-7.0 [facility] Comment on above: Performed By: #### C BC #### [facility] [address] [place] [address] Ricardo Alpa Erythrocyte distribution width (RBC) [Ratio] 13.0 % Normal 11.0-15.0 [facility] Comment on above: Performed By: #### C BC #### [facility] [address] [place] [address] Ricardo Alpa Hematocrit (Bld) [Volume fraction] 44.0 % Normal 36.0-48.0 [facility] Comment on above: Performed By: #### C BC #### [facility] [address] [place] [address] Ricardo Alpa Hemoglobin (Bld) [Mass/Vol] 14.6 g/dL Normal 12.0-16.0 [facility] Comment on above: Performed By: #### C BC #### [facility] [address] [place] [address] Ricardo Alpa IG # 0.01 10e3/ul Normal 0.00-0.03 [facility] Comment on above: Performed By: #### C BC #### [facility] [address] [place] [address] Ricardo Alpa IG % 0.2 % Normal 0.0-0.5 [facility] Comment on above: Performed By: #### C BC #### [facility] [address] [place], [place] [id number] Ricardo Alpa Lymphocytes (Bld) [#/Vol] 1.7 103/ul Normal 1.2-3.8 [facility] Comment on above: Performed By: #### C BC #### [facility] [address] [place] [address] Ricardo Alpa Lymphocytes/100 WBC (Bld) 29.0 % Normal 20.5-60.0 [facility] Comment on above: Performed By: #### C BC #### [facility] [address] [place], [place] [id number] Ricardo Alpa MANUAL DIFF REQ NO Normal [facility] Comment on above: Performed By: #### C BC #### [facility] [address] [place], [place] [id number] Ricardo Alpa MCH (RBC) [Entitic mass] 30.0 pg Normal 26.7-34.0 [facility] Comment on above: Performed By: #### C BC #### [facility] [address] [place], [place] [id number] Ricardo Yuen MCHC (RBC) [Mass/Vol] 33.2 g/dL Normal 29.9-35.2 [facility] Comment on above: Performed By: #### C BC #### [facility] [address] [place], [place] [id number] Ricardo Yuen MCV (RBC) [Entitic vol] 90.5 fL Normal 81.0-99.0 [facility] Comment on above: Performed By: #### C BC #### [facility] [address] [place] [address] Ricardo Alpa Monocytes (Bld) [#/Vol] 0.3 103/ul Normal 0.3-0.8 [facility] Comment on above: Performed By: #### C BC #### [facility] [address] [place] [address] Ricardo Cruzen Monocytes/100 WBC (Bld) 5.5 % Normal 1.7-12.0 [facility] Comment on above: Performed By: #### C BC #### [facility] [address] [place] [address] Ricardo Alpa Neutrophils (Bld) [#/Vol] 3.4 103/ul Normal 1.4-6.5 [facility] Comment on above: Performed By: #### C BC #### [facility] [address] [place] [address] Ricardo Alpa Neutrophils/100 WBC (Bld) 60.5 % Normal 43.0-75.0 [facility] Comment on above: Performed By: #### C BC #### [facility] [address] [place], [place] [id number] Ricardoshawna Yuen Platelet mean volume (Bld) [Entitic vol] 10.2 fL Normal 9.5-13.5 [facility] Comment on above: Performed By: #### C BC #### [facility] [address] [place], [place] [address] Ricardoshawna Yuen Platelets (Bld) [#/Vol] 282 103/ul Normal 150-450 [facility] Comment on above: Performed By: #### C BC #### [facility] [address] [place], [place] [address] Ricardo Alpa RBC (Bld) [#/Vol] 4.86 106/ul Normal 4.20-5.40 [facility] Comment on above: Performed By: #### C BC #### [facility] [address], [place] [address] Ricardo Alpa WBC (Bld) [#/Vol] 5.7 103/ul Normal 4.0-11.0 [facility] Comment on above: Performed By: #### C BC #### [facility] [address] [place] [address] Ricardoshawna Yuen GLYCOHEMOGLOBIN A1Con 2018 Glucose [Mass/Vol] 105 mg/dL Normal [facility] Comment on above: Performed By: #### A 1C #### [facility] [address] [place] [address] Ricardo Alpa HbA1c (Bld) [Mass fraction] 5.3 % Normal <=6.0 [facility] Comment on above: Performed By: #### A 1C #### [facility] [address] [place] [address] Ricardo Alpa LIPID PROFILEon 07-26-2019 CHOL-HDL RATIO NORM SEE BELOW Normal [facility] Comment on above: Result Comment: 3.3 - 4.4 LOW RISK 4.4 - 7.1 AVERAGE RISK 7.1 - 11.0 MODERATE RISK >11.0 HIGH RISK Performed By: #### C MP, TSH, LIPID #### [facility] [address] [place] [address] Ricardo Alpa Cholesterol [Mass/Vol] 174 mg/dL Normal <=200 [facility] Comment on above: Performed By: #### C MP, TSH, LIPID #### [facility] [address] [place] [address] Ricardo Alpa Cholesterol in HDL [Mass/Vol] > or = 60 mg/dl - LOW CARDIOVASCULAR RISK <40 mg/dl - HIGH CARDIOVASCULAR RISK Normal [facility] Comment on above: Performed By: #### C MP, TSH, LIPID #### [facility] [address], [place] [address] Ricardo Alpa Cholesterol in HDL [Mass/Vol] 76 mg/dL Normal [facility] Comment on above: Performed By: #### C MP, TSH, LIPID #### [facility] [address] [place], [place] [address] Ricardo Alpa Cholesterol in LDL [Mass/Vol] 90.4 mg/dL Normal [facility] Comment on above: Performed By: #### C MP, TSH, LIPID #### [facility] [address], [place] [address] Ricardo Alpa Cholesterol in LDL [Mass/Vol] SEE BELOW Normal [facility] Comment on above: Result Comment: <100 mg/dl OPTIMAL 100 - 129 mg/dl NEAR OR ABOVE OPTIMAL 130 - 159 mg/dl BORDERLINE HIGH 160 - 189 mg/dl HIGH >190 mg/dl VERY HIGH Performed By: #### C MP, TSH, LIPID #### [facility] [address], [place] [address] Ricardo Alpa Cholesterol.total/Cho lesterol in HDL [Mass ratio] 2.3 {ratio} Normal [facility] Comment on above: Performed By: #### C MP, TSH, LIPID #### [facility] [address], [place] [address] Ricardo Alpa Triglyceride [Mass/Vol] 38 mg/dL Normal <=150 [facility] Comment on above: Performed By: #### C MP, TSH, LIPID #### [facility] [address], [place] [address] Ricardo Alpa VLDL CALC 7.6 mg/dL Normal [facility] Comment on above: Performed By: #### C MP, TSH, LIPID #### [facility] [address], [place] [address] Ricardo Alpa PROF 14(COMP METB)on 019 Albumin [Mass/Vol] 4.6 g/dL Normal 3.5-5.0 [facility] Comment on above: Performed By: #### C MP, TSH, LIPID #### [facility] [address], [place] [address] Ricardo Alpa Albumin/Globulin [Mass ratio] 1.3 {ratio} Normal [facility] Comment on above: Performed By: #### C MP, TSH, LIPID #### [facility] [address], [place] [address] Ricardo Alpa ALP [Catalytic activity/Vol] 56 U/L Normal 38-126 [facility] Comment on above: Performed By: #### C MP, TSH, LIPID #### [facility] [address], [place] [address] Ricardo Alpa ALT [Catalytic activity/Vol] 15 U/L Normal 9-52 [facility] Comment on above: Performed By: #### C MP, TSH, LIPID #### [facility] [address] [place] [id number] Ricardo Alpa Anion gap [Moles/Vol] 11.8 mmol/L Normal [place] Comment on above: Performed By: #### C MP, TSH, LIPID #### [facility] [address], [place] [address] Ricardo Alpa AST [Catalytic activity/Vol] 13 U/L Critically low 14-36 [facility] Comment on above: Performed By: #### C MP, TSH, LIPID #### [facility] [address], [place] [address] Ricardo Alpa Bilirubin Ql (U) 0.3 mg/dL Normal 0.2-1.3 [facility] Comment on above: Performed By: #### C MP, TSH, LIPID #### [facility] [address], [place] [address] Ricardo Alpa Calcium [Mass/Vol] 9.4 mg/dL Normal 8.4-10.2 [facility] Comment on above: Performed By: #### C MP, TSH, LIPID #### [facility] [address], [place] [address] Ricardo Alpa Chloride [Moles/Vol] 101 mmol/L Normal 98-107 [facility] Comment on above: Performed By: #### C MP, TSH, LIPID #### [facility] [address], [place] [address] Ricardo Alpa CO2 [Moles/Vol] 29.2 mmol/L Normal 22.0-30.0 [facility] Comment on above: Performed By: #### C MP, TSH, LIPID #### [facility] [address] [place] [id number] Ricardo Alpa Creatinine [Mass/Vol] 0.66 mg/dL Normal 0.52-1.04 [facility] Comment on above: Performed By: #### C MP, TSH, LIPID #### [facility] [address] [id number] Ricardo Alpa EGFR-AF SLOVENIAN >60 Normal >=60 [facility] Comment on above: Performed By: #### C MP, TSH, LIPID #### [facility] [address] [id number] Ricardo Alpa EGFR-NON AF SLOVENIAN >60 Normal >=60 [facility] Comment on above: Performed By: #### C MP, TSH, LIPID #### [facility] [address] [place] [id number] Ricardo Alpa Globulin (S) [Mass/Vol] 3.5 g/dL Normal [facility] Comment on above: Performed By: #### C MP, TSH, LIPID #### [facility] [address] [place] [id number] Ricardo Alpa Glucose [Mass/Vol] 88 mg/dL Normal 74-106 [facility] Comment on above: Performed By: #### C MP, TSH, LIPID #### [facility] [address] [place] [id number] Ricardo Alpa Potassium [Moles/Vol] 4.0 mmol/L Normal 3.4-5.0 [facility] Comment on above: Performed By: #### C MP, TSH, LIPID #### [facility] [address] [place] [id number] Ricardo Alpa Protein [Mass/Vol] 8.1 g/dL Normal 6.1-8.2 [facility] Comment on above: Performed By: #### C MP, TSH, LIPID #### [facility] [address] [address] Ricardo Alpa Sodium [Moles/Vol] 138 mmol/L Normal 137-145 [facility] Comment on above: Performed By: #### C MP, TSH, LIPID #### [facility] [address] [id number] Ricardo Alpa Urea nitrogen [Mass/Vol] 13.0 mg/dL Normal 7.0-17.0 [facility] Comment on above: Performed By: #### C MP, TSH, LIPID #### [facility] [address] [place] [address] Ricardo Alpa Urea nitrogen/Creatinine [Mass ratio] 19.7 mg/mg Normal [facility] Comment on above: Performed By: #### C MP, TSH, LIPID #### [facility] [address] [place] [address] Ricardo Alpa TSHon 07-26-2019 TSH Qn 0.572 uIU/mL Normal 0.470-4.680 [facility] Comment on above: Performed By: #### C MP, TSH, LIPID #### [facility] [address] [place] [address] Ricardo Alpa TSH Qn SEE BELOW Normal [facility] Comment on above: Result Comment: <0.3 4 UIU/ml HYPERTHYROID 0.34-5.60 UIU/ml EUTHYROID >5.60 UIU/ml HYPOTHYROID Performed By: #### C MP, TSH, LIPID #### [facility] [address] [place] [address] Ricardo Alpa PAP ACOG PANEL 3: 21 to 28on 06-05-2019 Age Gdln ACOG Testing Normal [facility] Comment on above: Performed By: #### [id number] #### [facility] [address] [place] [address] Ricardo Alpa Chlamydia, Nuc. Acid Amp Negative Normal Negative [facility] Comment on above: Result Comment: Perf ormed at: =G Performed By: #### 4 [id number] #### [facility] [address] [place] [address] Ricardo Yuen DIAGNOSIS: Comment Normal [facility] Comment on above: Result Comment: NEGA TIVE FOR INTRAEPITHELIAL LESION OR MALIGNANCY. THIS SPECIMEN WAS RESCREENED PART OF OUR WASTE HAND PROGRAM. Performed at: WB Performed By: #### [id number] #### [facility] [address] [place] [address] Ricardo Yuen Gonococcus, Nuc. Acid Amp Negative Normal Negative [facility] Comment on above: Result Comment: Perf ormed at: =G Performed By: #### [id number] #### [facility] [address] [place] [address] Ricardo Yuen Methodology: Comment Normal [facility] Comment on above: Result Comment: This liquid based ThinPrep(R) pap test was screened with the use of an image guided system. Performed at: WB Performed By: #### [id number] #### [facility] [address] [place] [address] Ricardo Alpa Note: Comment Normal [facility] Comment on above: Result Comment: The Pap smear is a screening test designed to aid in the detection of premalignant and malignant conditions of the uterine cervix. It is not a diagnostic procedure and should not be used as the sole means of detecting cervical cancer. Both false-positive and false-negative reports do occur. . Performed at: WB Performed By: #### [id number] #### [facility] [address] [place] [address] Ricardo Alpa Performed by: Comment Normal [facility] Comment on above: Result Comment: Nasima Blankenship, Day Care Director (ASCP) Performed at: WB Performed By: #### [id number] #### [facility] [address] [place] [address] Ricardo Yuen QC reviewed by: Comment Normal [facility] Comment on above: Result Comment: Joan Bautista, Day Care Director (ASCP) Performed at: WB Performed By: #### [id number] #### [facility] [address], [place] [address] Ricardoshawna Yuen Reflex Criteria: Comment [facility] Comment on above: Result Comment: The HPV DNA reflex criteria were not met with this specimen result therefore, no HPV testing was performed. . Performed at: WB Performed By: #### [id number] #### [facility] [address], [place] [address] Ricardoshawna Yuen Specimen adequacy: Comment Normal [facility] Comment on above: Result Comment: Sati sfactory for evaluation. Endocervical and/or squamous metaplastic cells (endocervical component) are present. Performed at: WB Performed By: #### [id number] #### [facility] [address], [place] [address] Ricardoshawna Yuen . . Normal [facility] Comment on above: Result Comment: Perf ormed at: WB Performed By: #### [id number] #### [facility] [address], [place] [address] Ricardo Yuen Encounters Encounter Date Encounter Type Care Provider Facility Start: 10-10-2023 End: 10-10-2023 ambulatory MAXIMINO CARLOS Not Available Start: 09-12-2023 End: 09-12-2023 ambulatory ROSANNE SERGIO Not Available Start: 08-23-2023 End: 08-23-2023 ambulatory ROSANNE SERGIO Not Available Start: 07-26-2019 End: 07-27-2019 Patient encounter procedure CHRISTO MCCOY Facility:[facility] Start: 06-02-2019 End: 06-02-2019 Patient encounter procedure CHRISTO MCCOY Facility: Payers Date Payer Category Payer Unknown [id number] 1995 Unknown [id number] 1995 Unknown [id number] [id number] 1994 Unknown [id number] 1994 Unknown [id number] 1994 Unknown [id number] 1959 Unknown [id number] Summary Purpose Family History No Family History Records FoundNo Family History Records Found Advance Directives No Advanced Directives Records FoundNo Advanced Directives Records Found Additional Source Comments INFORMATION SOURCE (unrecogn ized section and content) DATE CREATED AUTHOR 07/30/2019 [facility] DATE CREATED AUTHOR AUTHOR'S ORGANIZ ATION 10/11/2023 [facility] EPIC FOR RECORDS PERTAINING [...] BE BASED ON THE PRIMARY CLINICAL RECORDS. [facility] [employer] provides no warranty or guarantee of the accuracy or completeness of information in this document.
[2023-11-12 17:07] LABS: AFP Value 98.7 ng/mL (.); Gest. Age on Collection Date 20.9 weeks (.); Gestat. Age Based On As provided (.); Insulin Dep Diabetes No (.); Maternal Age At EDD 29.7 yr (.); OSBR Risk 1 IN See interpretation. (.); Results Report (.)
== END 2023-11-07 12:19 | disposition home or self-care (01) ==
PROVIDERS: Visit Provider Obstetrics & Gynecology
DX: Z34.92 Encounter for supervision of normal pregnancy, unspecified, second trimester (principal)
CPT/HCPCS: 36415; 82105

== ENCOUNTER 2023-12-05 13:04 | Outpatient (OUT) | payer BC, SELFPAY ==
--- NOTE | 2023-12-05 13:06 | US_ITS ---
[address] [address] Patient Name: ADDISON ARAGON MRN: [id number] date: 1995 Sex: F Assigned Patient Location: [facility] Current Patient Location: [facility] Accession/Order Number: [id number] Exam Date: 12/05/2023 13:07 Report Date: 12/05/2023 14:08 At the request of: ROSANNE HILL Procedure: US OB incomplete anatomy EXAM: US OB incomplete anatomy HISTORY: SV KIDNEYS COMPARISON: 11/07/2023 TECHNIQUE: Transabdominal FINDINGS: position: Transverse Heart rate: 149 beats minute The right kidney is normal The left kidney is not definitively visualized US/US OB incomplete anatomy IMPRESSION: Nonvisualization of the left kidney Electronically authenticated by: HERACLIO GONZALEZ Date: 12/05/2023 14:08
== END 2023-12-05 13:05 | disposition home or self-care (01) ==
LOC: NOMS 13:05
PROVIDERS: Visit Provider Obstetrics & Gynecology
DX: Z36.2 Encounter for other antenatal screening follow-up (principal)
CPT/HCPCS: 76815

== ENCOUNTER 2024-01-02 11:05 | Outpatient (OUT) | payer BC, SELFPAY ==
--- OUTSIDE RECORDS SUMMARY | 2024-01-02 11:12 | XMS_ITS | CCD ---
Author Organization [facility] Care Team Providers Care Crew Mess Attendant Name Role Phone CHRISTO MCCOY Admitting Unavailable CHRISTO MCCOY Attending Unavailable CHRISTO MCCOY Consulting Unavailable CHRISTO MCCOY Admitting Unavailable CHRISTO MCCOY Attending Unavailable NADINE, CHRISTO Consulting Unavailable CARLOS, MAXIMINO Attending Unavailable SERGIO, ROSANNE Attending Unavailable SERGIO, ROSANNE Attending Unavailable CARLOS, MAXIMINO Attending Unavailable SERGIO, ROSANNE Attending Unavailable Problems Problem Classification Problem Date [...] 07-30-2019 17-OH Progesterone LCMS 67 ng/dL Normal [facility] Comment on above: Result Comment: Adul t Female Follicular 15 - 70 Luteal 35 - 290 Performed By: #### C BC #### [facility] [address] [place] [address] Ricardoshawna Cruzen FREE TESTOSTERONEon 07-28-20 19 Free Testosterone(Direct) 1.9 pg/mL Normal 0.0-4.2 [facility] Comment on above: Performed By: #### F RETEST #### [facility] [address] [address] Ricardo Yuen INSULINon 07-28-2019 Insulin 6.6 uIU/mL Normal 2.6-24.9 [facility] Comment on above: Performed By: #### C BC #### [facility] [address] [place] [address] Ricardo Yuen DHEA-SULFATEon 07-27-2019 DHEA-Sulfate 194.8 ug/dL Normal 84.8-378.0 [facility] Comment on above: Performed By: #### D MATT #### [facility] [address] [place] [address] Ricardo Yuen FSHon 07-27-2019 FSH 7.0 mIU/mL Normal [facility] Comment on above: Result Comment: Adul t Female: Follicular phase 3.5 - 12.5 Ovulation phase 4.7 - 21.5 Luteal phase 1.7 - 7.7 Postmenopausal 25.8 - 134.8 Performed By: #### L BCFS #### [facility] [address] [place] [address] Ricardo Yuen PROLACTINon 07-27-2019 Prolactin 13.1 ng/mL Normal 4.8-23.3 [facility] Comment on above: Performed By: #### P ROLAC #### [facility] [address] [place] [address] Ricardo Yuen CBC AUTO DIFFon 07-26-2019 Basophils (Bld) [#/Vol] 0.1 103/ul Normal 0.0-0.1 [facility] Comment on above: Performed By: #### C BC #### [facility] [address] [place] [address] Ricardo Alpa Basophils/100 WBC (Bld) 0.9 % Normal 0.2-2.0 [facility] Comment on above: Performed By: #### C BC #### [facility] [address] [place] [address] Ricardo Alpa Eosinophils (Bld) [#/Vol] 0.2 103/ul Normal 0.0-0.7 [facility] Comment on above: Performed By: #### C BC #### [facility] [address] [place] [address] Ricardo Alpa Eosinophils/100 WBC (Bld) 3.9 % Normal 0.9-7.0 [facility] Comment on above: Performed By: #### C BC #### [facility] [address] [place], [place] [id number] Ricardoshawna Yuen Erythrocyte distribution width (RBC) [Ratio] 13.0 % Normal 11.0-15.0 [facility] Comment on above: Performed By: #### C BC #### [facility] [address] [place], [place] [id number] Ricardo Alpa Hematocrit (Bld) [Volume fraction] 44.0 % Normal 36.0-48.0 [facility] Comment on above: Performed By: #### C BC #### [facility] [address] [place] [address] Ricardo Alpa Hemoglobin (Bld) [Mass/Vol] 14.6 g/dL Normal 12.0-16.0 [facility] Comment on above: Performed By: #### C BC #### [facility] [address] [place] [address] Ricardo Apla IG # 0.01 10e3/ul Normal 0.00-0.03 [facility] Comment on above: Performed By: #### C BC #### [facility] [address] [place] [address] Ricardo Alpa IG % 0.2 % Normal 0.0-0.5 [facility] Comment on above: Performed By: #### C BC #### [facility] [address] [place], [place] [id number] Ricrado Alpa Lymphocytes (Bld) [#/Vol] 1.7 103/ul Normal 1.2-3.8 [facility] Comment on above: Performed By: #### C BC #### [facility] [address] [place] [address] Ricardo Alpa Lymphocytes/100 WBC (Bld) 29.0 % Normal 20.5-60.0 [facility] Comment on above: Performed By: #### C BC #### [facility] [address] [place], [place] [id number] Ricardo Alpa MANUAL DIFF REQ NO Normal [facility] Comment on above: Performed By: #### C BC #### [facility] [address] [place], [place] [address] Ricardo Alpa MCH (RBC) [Entitic mass] 30.0 pg Normal 26.7-34.0 [facility] Comment on above: Performed By: #### C BC #### [facility] [address] [place], [place] [address] Ricardo Yuen MCHC (RBC) [Mass/Vol] 33.2 g/dL Normal 29.9-35.2 [facility] Comment on above: Performed By: #### C BC #### [facility] [address] [place], [place] [address] Ricardoshawna Yuen MCV (RBC) [Entitic vol] 90.5 fL Normal 81.0-99.0 [facility] Comment on above: Performed By: #### C BC #### [facility] [address] [place] [address] Ricardo Alpa Monocytes (Bld) [#/Vol] 0.3 103/ul Normal 0.3-0.8 [facility] Comment on above: Performed By: #### C BC #### [facility] [address] [place] [address] Ricardo Alpa Monocytes/100 WBC (Bld) 5.5 % Normal 1.7-12.0 [facility] Comment on above: Performed By: #### C BC #### [facility] [address] [place] [address] Ricardo Alpa Neutrophils (Bld) [#/Vol] 3.4 103/ul Normal 1.4-6.5 [facility] Comment on above: Performed By: #### C BC #### [facility] [address] [place] [address] Ricardo Alpa Neutrophils/100 WBC (Bld) 60.5 % Normal 43.0-75.0 [facility] Comment on above: Performed By: #### C BC #### [facility] [address] [place], [place] [address] Ricardo Alpa Platelet mean volume (Bld) [Entitic vol] 10.2 fL Normal 9.5-13.5 [facility] Comment on above: Performed By: #### C BC #### [facility] [address] [place], [place] [address] Ricardoshawna Yuen Platelets (Bld) [#/Vol] 282 103/ul Normal 150-450 [facility] Comment on above: Performed By: #### C BC #### [facility] [address] [place], [place] [address] Ricradoshawna Cruzen RBC (Bld) [#/Vol] 4.86 106/ul Normal 4.20-5.40 [facility] Comment on above: Performed By: #### C BC #### [facility] [address] [place], [place] [address] Ricardoshawna Cruzen WBC (Bld) [#/Vol] 5.7 103/ul Normal 4.0-11.0 [facility] Comment on above: Performed By: #### C BC #### [facility] [address] [place], [place] [address] Ricardoshawna Yuen GLYCOHEMOGLOBIN A1Con 2018 Glucose [Mass/Vol] 105 mg/dL Normal [facility] Comment on above: Performed By: #### A 1C #### [facility] [address] [place] [address] Ricardoshawna Yuen HbA1c (Bld) [Mass fraction] 5.3 % Normal <=6.0 [facility] Comment on above: Performed By: #### A 1C #### [facility] [address] [place] [address] Ricardoshawna Yuen LIPID PROFILEon 07-26-2019 CHOL-HDL RATIO NORM SEE BELOW Normal [facility] Comment on above: Result Comment: 3.3 - 4.4 LOW RISK 4.4 - 7.1 AVERAGE RISK 7.1 - 11.0 MODERATE RISK >11.0 HIGH RISK Performed By: #### C MP, TSH, LIPID #### [facility] [address] [place], [place] [address] Ricardo Alpa Cholesterol [Mass/Vol] 174 mg/dL Normal <=200 [facility] Comment on above: Performed By: #### C MP, TSH, LIPID #### [facility] [address] [place], [place] [address] Ricardo Lapa Cholesterol in HDL [Mass/Vol] > or = 60 mg/dl - LOW CARDIOVASCULAR RISK <40 mg/dl - HIGH CARDIOVASCULAR RISK Normal [facility] Comment on above: Performed By: #### C MP, TSH, LIPID #### [facility] [address] [place], [place] [address] Ricardo Alpa Cholesterol in HDL [Mass/Vol] 76 mg/dL Normal [facility] Comment on above: Performed By: #### C MP, TSH, LIPID #### [facility] [address] [place], [place] [address] Ricardo Alpa Cholesterol in LDL [Mass/Vol] 90.4 mg/dL Normal [facility] Comment on above: Performed By: #### C MP, TSH, LIPID #### [facility] [address] [place], [place] [address] Ricardo Alpa Cholesterol in LDL [Mass/Vol] SEE BELOW Normal [facility] Comment on above: Result Comment: <100 mg/dl OPTIMAL 100 - 129 mg/dl NEAR OR ABOVE OPTIMAL 130 - 159 mg/dl BORDERLINE HIGH 160 - 189 mg/dl HIGH >190 mg/dl VERY HIGH Performed By: #### C MP, TSH, LIPID #### [facility] [address] [place], [place] [address] Ricardo Alpa Cholesterol.total/Cho lesterol in HDL [Mass ratio] 2.3 {ratio} Normal [facility] Comment on above: Performed By: #### C MP, TSH, LIPID #### [facility] [address] [place], [place] [address] Ricardo Alpa Triglyceride [Mass/Vol] 38 mg/dL Normal <=150 [facility] Comment on above: Performed By: #### C MP, TSH, LIPID #### [facility] [address] [place], [place] [address] Ricardo Alpa VLDL CALC 7.6 mg/dL Normal [facility] Comment on above: Performed By: #### C MP, TSH, LIPID #### [facility] [address] [place], [place] [address] Ricardo Alpa PROF 14(COMP METB)on 019 Albumin [Mass/Vol] 4.6 g/dL Normal 3.5-5.0 [facility] Comment on above: Performed By: #### C MP, TSH, LIPID #### [facility] [address] [place], [place] [address] Ricardo Alpa Albumin/Globulin [Mass ratio] 1.3 {ratio} Normal [facility] Comment on above: Performed By: #### C MP, TSH, LIPID #### [facility] [address] [place], [place] [address] Ricardo Alpa ALP [Catalytic activity/Vol] 56 U/L Normal 38-126 [facility] Comment on above: Performed By: #### C MP, TSH, LIPID #### [facility] [address] [place], [place] [address] Ricardo Alpa ALT [Catalytic activity/Vol] 15 U/L Normal 9-52 [facility] Comment on above: Performed By: #### C MP, TSH, LIPID #### [facility] [address] [place], [place] [address] Ricardo Alpa Anion gap [Moles/Vol] 11.8 mmol/L Normal [facility] Comment on above: Performed By: #### C MP, TSH, LIPID #### [facility] [address] [place], [place] [address] Ricardo Alpa AST [Catalytic activity/Vol] 13 U/L Critically low 14-36 [facility] Comment on above: Performed By: #### C MP, TSH, LIPID #### [facility] [address] [place], [place] [address] Ricardo Alpa Bilirubin Ql (U) 0.3 mg/dL Normal 0.2-1.3 [facility] Comment on above: Performed By: #### C MP, TSH, LIPID #### [facility] [address] [place], [place] [address] Ricardo Alpa Calcium [Mass/Vol] 9.4 mg/dL Normal 8.4-10.2 [facility] Comment on above: Performed By: #### C MP, TSH, LIPID #### [facility] [address] [place], [place] [address] Ricardo Alpa Chloride [Moles/Vol] 101 mmol/L Normal 98-107 [facility] Comment on above: Performed By: #### C MP, TSH, LIPID #### [facility] [address] [place], [place] [address] Ricardo Alpa CO2 [Moles/Vol] 29.2 mmol/L Normal 22.0-30.0 [facility] Comment on above: Performed By: #### C MP, TSH, LIPID #### [facility] [address] [id number] Ricardo Alpa Creatinine [Mass/Vol] 0.66 mg/dL Normal 0.52-1.04 [facility] Comment on above: Performed By: #### C MP, TSH, LIPID #### [facility] [address] [id number] Ricardo Alpa EGFR-AF IVORIAN >60 Normal >=60 [facility] Comment on above: Performed By: #### C MP, TSH, LIPID #### [facility] [address] [address] Ricardo Alpa EGFR-NON AF IVORIAN >60 Normal >=60 [facility] Comment on above: Performed By: #### C MP, TSH, LIPID #### [facility] [address] [id number] Ricardo Alpa Globulin (S) [Mass/Vol] 3.5 g/dL Normal [facility] Comment on above: Performed By: #### C MP, TSH, LIPID #### [facility] [address] [id number] Ricardo Alpa Glucose [Mass/Vol] 88 mg/dL Normal 74-106 [facility] Comment on above: Performed By: #### C MP, TSH, LIPID #### [facility] [address] [id number] Ricardo Alpa Potassium [Moles/Vol] 4.0 mmol/L Normal 3.4-5.0 [facility] Comment on above: Performed By: #### C MP, TSH, LIPID #### [facility] [address] [id number] Ricardo Alpa Protein [Mass/Vol] 8.1 g/dL Normal 6.1-8.2 [facility] Comment on above: Performed By: #### C MP, TSH, LIPID #### [facility] [address] [address] Ricardo Alpa Sodium [Moles/Vol] 138 mmol/L Normal 137-145 [facility] Comment on above: Performed By: #### C MP, TSH, LIPID #### [facility] [address] [id number] Ricardo Alpa Urea nitrogen [Mass/Vol] 13.0 mg/dL Normal 7.0-17.0 [facility] Comment on above: Performed By: #### C MP, TSH, LIPID #### [facility] [address] [place], [place] [address] Ricardo Alpa Urea nitrogen/Creatinine [Mass ratio] 19.7 mg/mg Normal [facility] Comment on above: Performed By: #### C MP, TSH, LIPID #### [facility] [address] [place] [address] Ricardo Alpa TSHon 07-26-2019 TSH Qn 0.572 uIU/mL Normal 0.470-4.680 [facility] Comment on above: Performed By: #### C MP, TSH, LIPID #### [facility] [address] [place], [place] [address] Ricardo Alpa TSH Qn SEE BELOW Normal [facility] Comment on above: Result Comment: <0.3 4 UIU/ml HYPERTHYROID 0.34-5.60 UIU/ml EUTHYROID >5.60 UIU/ml HYPOTHYROID Performed By: #### C MP, TSH, LIPID #### [facility] [address] [place], [place] [address] Ricardo Alpa PAP ACOG PANEL 3: 20 to 28on 06-05-2019 Age Gdln ACOG Testing Normal [facility] Comment on above: Performed By: #### [id number] #### [facility] [address] [place] [address] Ricardo Alpa Chlamydia, Nuc. Acid Amp Negative Normal Negative [facility] Comment on above: Result Comment: Perf ormed at: =G Performed By: #### [id number] #### [facility] [address] [place] [address] Ricardo Cruzen DIAGNOSIS: Comment Normal [facility] Comment on above: Result Comment: NEGA TIVE FOR INTRAEPITHELIAL LESION OR MALIGNANCY. THIS SPECIMEN WAS RESCREENED PART OF OUR STATIONARY ENGINEER APPRENTICE PROGRAM. Performed at: WB Performed By: #### [id number] #### [facility] [address] [place] [address] Ricardo Alpa Gonococcus, Nuc. Acid Amp Negative Normal Negative [facility] Comment on above: Result Comment: Perf ormed at: =G Performed By: #### [id number] #### [facility] [address] [place] [address] Ricardo Alpa Methodology: Comment Normal [facility] Comment on above: Result Comment: This liquid based ThinPrep(R) pap test was screened with the use of an image guided system. Performed at: WB Performed By: #### [id number] #### [facility] [address] [place] [address] Alpa Note: Comment Normal [facility] Comment on above: Result Comment: The Pap smear is a screening test designed to aid in the detection of premalignant and malignant conditions of the uterine cervix. It is not a diagnostic procedure and should not be used as the sole means of detecting cervical cancer. Both false-positive and false-negative reports do occur. . Performed at: WB Performed By: #### [id number] #### [facility] [address] [place] [address] Ricardo Alpa Performed by: Comment Normal [facility] Comment on above: Result Comment: Nasima Blankenship, Large Sheetfed Press Operator (ASCP) Performed at: WB Performed By: #### [id number] #### [facility] [address] [place] [address] Ricardo Alpa QC reviewed by: Comment Normal [facility] Comment on above: Result Comment: Joan Bautista, Large Sheetfed Press Operator (ASCP) Performed at: WB Performed By: #### [id number] #### [facility] [address] [address] Ricardo Yuen Reflex Criteria: Comment Normal [facility] Comment on above: Result Comment: The HPV DNA reflex criteria were not met with this specimen result therefore, no HPV testing was performed. . Performed at: WB Performed By: #### [id number] #### [facility] [address] [id number] Ricardoshawna Yuen Specimen adequacy: Comment Normal [facility] Comment on above: Result Comment: Sati sfactory for evaluation. Endocervical and/or squamous metaplastic cells (endocervical component) are present. Performed at: WB Performed By: #### [id number] #### [facility] [address] [address] Ricardo Yuen . . Normal [facility] Comment on above: Result Comment: Perf ormed at: WB Performed By: #### [id number] #### [facility] [address] [id number] Ricardo Yuen Encounters Encounter Date Encounter Type Care Provider Facility Start: 12-05-2023 End: 12-05-2023 ambulatory MAXIMINO CARLOS Not Available Start: 11-07-2023 End: 11-07-2023 ambulatory ROSANNE SERGIO Not Available Start: 10-10-2023 End: 10-10-2023 ambulatory MAXIMINO CARLOS Not Available Start: 09-12-2023 End: 09-12-2023 ambulatory ROSANNE SERGIO Not Available Start: 08-23-2023 End: 08-23-2023 ambulatory ROSANNE SERGIO Not Available Start: 07-26-2019 End: 07-27-2019 Patient encounter procedure CHRISTO MCCOY Facility:[facility] Start: 06-02-2019 End: 06-02-2019 Patient encounter procedure CHRISTO MCCOY Facility:[facility] Payers Date Payer Category Payer Unknown [id number] 2021 Unknown [id number] 1994 Unknown [id number] 2.16.84 [id number] 1994 Unknown [id number] 2.16.84 [id number] 1994 Unknown [id number] 2.16.84 [id number] 1994 Unknown [id number] 2.16.84 [id number] 1994 Unknown [id number] [id number] 1994 Unknown [id number] [id number] 1994 Unknown [id number] [id number] 1959 Unknown [id number] Summary Purpose Family History No Family History Records FoundNo Family History Records Found Advance Directives No Advanced Directives Records FoundNo Advanced Directives Records Found Additional Source Comments INFORMATION SOURCE (unrecogn ized section and content) DATE CREATED AUTHOR 07/30/2019 [facility] DATE CREATED AUTHOR 'S [employer]ER[employer]HECTOR 12/08/2023 [facility] EPIC FOR RECORDS PERTAINING TO PATIENTS [...] BE BASED ON THE PRIMARY CLINICAL RECORDS. [email or web address] provides no warranty or guarantee of the accuracy or completeness of information in this document.
[2024-01-02 12:49] LABS: Basophils Percent Auto 0.4 % (0.2-2.0); Eosinophils Absolute Auto 0.3 10^3/uL (0.0-0.7); Eosinophils Percent Auto 4.2 % (0.9-7.0); Hematocrit 33.8 % (36.0-48.0); Immature Granulocytes Abs Auto 0.05 10^3/uL (0.00-0.03); Immature Granulocytes Pct Auto 0.7 % (0.0-0.5); Lymphocytes Absolute Auto 0.9 10^3/uL (1.2-3.8); Lymphocytes Percent Auto 12.3 % (20.5-60.0); Mean Corpuscular HGB Conc 32.5 g/dL (29.9-35.2); Mean Corpuscular Hemoglobin 29.6 pg (26.7-34.0); Mean Corpuscular Volume 91.1 fL (81.0-99.0); Mean Platelet Volume 11.2 fL (9.5-13.5); Monocytes Absolute Auto 0.8 10^3/uL (0.3-0.8); Monocytes Percent Auto 11.7 % (1.7-12.0); Neutrophils Percent Auto 70.7 % (43.0-75.0); Platelet Count 224 10^3/uL (150-450); Red Blood Count 3.71 10^6/uL (4.20-5.40); Red Cell Distribution Width 13.7 % (11.0-15.0); White Blood Count 7.1 10^3/uL (4.0-11.0)
[2024-01-02 13:37] LABS: Glucose 1 Hour 147 mg/dL (<130)
== END 2024-01-02 11:06 | disposition home or self-care (01) ==
LOC: LAB 11:06
PROVIDERS: Visit Provider Physician Assistant
DX: Z13.1 Encounter for screening for diabetes mellitus (principal)
CPT/HCPCS: 36415; 82950; 85025

== ENCOUNTER 2025-09-14 12:17 | Emergency (ER) | payer SELFPAY ==
[2025-09-14 12:22] VITALS: BP 123/56; PULSE 85; TEMP 37.1; O2SAT 95; BMI 26.6
[2025-09-14] MEDS: LIDOCAINE HCL 1% 100 MG/10 ML MDV INJ (12:57)
--- OUTSIDE RECORDS SUMMARY | 2025-09-14 13:03 | XMS_ITS | CCD ---
Author Organization [facility] Care Team Providers Care Addiction Treatment Counselor Name Role Phone CHRISTO MCCOY Admitting Unavailable CHRISTO MCCOY Attending Unavailable CHRISTO MCCOY Consulting Unavailable CHRISTO MCCOY Admitting Unavailable CHRISTO MCCOY Attending Unavailable CHRISTO MCCOY Consulting Unavailable MAXIMINO GONZALEZ Attending Unavailable MARIZOL, ZACHERY Attending Unavailable MARIZOL, ZACHERY Attending Unavailable MARIZOL, ZACHERY Attending Unavailable MAXIMINO GONZALEZ Attending Unavailable MARIZOL, ZACHERY Attending Unavailable NONE, NONE Primary Care Unavailable NONE, NONE Primary Care Unavailable RICHIE MCDUFFIE Admitting Unavailable RICHIE MCDUFFIE Attending Unavailable CATARINO PRAKASH Consulting Unavailable ADITHYA CARROLL Consulting Unavailable VICTOR MANUEL TSAI Consulting Unavailable NONE, NONE Primary Care Unavailable NONE, NONE Primary Care Unavailable NONE, NONE Primary Care Unavailable NONE, NONE Primary Care Unavailable NONE, NONE Primary Care Unavailable RICHIE MCDUFFIE Referring Unavailable Unavailable Primary Care Provider Unavailabl e Medications Current Medications MedicationDrug Class(es)DatesSig (Normalized)Sig (Original)citalopram 20 mg oral tablet (2 sources)Serotonin Reuptake InhibitorStart: 11-26-2024 End: 48-56-2136jhvk 1 tablet by mouth once dailycitalopram (CeleXA) 20 MG tablet Indications: anxiety , depression (CMS/HCC) Take 1 tablet (20 mg) by mouth Daily 30 tablet 11 11/26/2024 11/26/2025 Xehmvb31 hr metFORMIN hydrochloride 500 mg extended release oral tablet (5 sources)BiguanideStart: 75-23-8438hsvMKDPYV XR (Glucophage-XR) 500 MG 24 hr tablet 1 (one) time each day at the same time 01/17/2023 ActivePrenatal Ishgxktw-Lbh-Nq-FA ( 1 + IRON PO) (5 sources) Afmrgoeb-Eqq-Gc-FA ( 1 + IRON PO) Active Problems Problem ClassificationProblemDateDocumented DateEpisodic/ChronicCardiac dysrhythmias (1 source)Tachycardia, unspecified; Translations: [Tachycardia, unspecified] Onset: 08-81-0126JsnwopuhIhpkufhzpqzz complicating ; childbirth and the puerperium (1 source)Eclampsia, unspecified as to time period; Translations: [Eclampsia, unspecified as to time period]Onset: 91-07-2014MaumuklnDbckkkdbymblu and screening for infectious disease (1 source)Encounter for screening for infections with a predominantly sexual mode of transmission; Translations: [ENC SCREEN INFECTIONS SEXL TRANSMS]Onset: 67-63-9579BqyuihlsXugtjbzuimkhw mental health disorders (2 sources) depression; Translations: [ depression] 69-19-8514PutxzlmqQxvfv complications of (2 sources)Other mental disorders complicating the puerperium; Translations: [Mental disorders of mother, condition or complication]11-26-2024 EpisodicOther screening for suspected conditions (not mental disorders or infectious disease) (4 sources)Encounter for screening for malignant neoplasm of cervix; Translations: [ENC SCREENING MALIG NEOPLASM CERV]Onset: 00-50-5758Btyrtuog Residual codes; unclassified (1 source)History of uterine scar from previous surgery; Translations: [History of uterine scar from previoussurgery]Onset: 23-27-2970RuuzhwrkKbywnwiujwdl (5 sources)OB RemindersOnset: [id number] Results Test NameValueInterpretationReference RangeFacilityCBCon 42-15-8607Wukyeaxphct distribution width (RBC) [Ratio]14.6 %High11.8-14.4[facility] HospitalComment on above:Performed By: #### CBC, CP, HAPT, HBS, AHCV, TREP, HIVCMB, LD #### [employer] [facility] [place] [address] Optical Laboratory Manager: Hugo Dewey MDHematocrit (Bld) [Volume fraction]37.8 %Normal 36.3-47.1[facility] HospitalComment on above:Performed By: #### CBC, CP, HAPT, HBS, AHCV, TREP, HIVCMB, LD #### [place] [address] Optical Laboratory Manager: Hugo Dewey MDHemoglobin (Bld) [Mass/Vol]11.7 g/dLLow11.9-15.1 [facility] HealthComment on above:Performed By: #### CBC, CP, HAPT, HBS, AHCV, TREP, HIVCMB, LD #### [place] [address] Optical Laboratory Manager: LANE GarciaCH (RBC) [Entitic mass]30.5 jjKtlcpw38.2-33.5 [facility] HealthComment on above:Performed By: #### CBC, CP, HAPT, HBS, AHCV, TREP, HIVCMB, LD #### [place] [address] Optical Laboratory Manager: ZAIRA GarciaC (RBC) [Mass/Vol]31.0 g/uQLrbozl00.4-34.8 [facility] HealthComment on above:Performed By: #### CBC, CP, HAPT, HBS, AHCV, TREP, HIVCMB, LD #### [place] [address] Optical Laboratory Manager: HEIDE Garcia (RBC) [Entitic vol]98.7 tJBqnfyl12.6-102.9 [facility] HealthComment on above:Performed By: #### CBC, CP, HAPT, HBS, AHCV, TREP, HIVCMB, LD #### [place] [address] Optical Laboratory Manager: Hugo Dewey MDNRBC Automated0.0 per 100 WBCNormal0.0Summa HealthComment on above:Performed By: #### CBC, CP, HAPT, HBS, AHCV, TREP, HIVCMB, LD #### [address] [address] Optical Laboratory Manager: Paty Garcia mean volume (Bld) [Entitic vol]10.5 fL Normal8.1-13.5Summa HealthComment on above:Performed By: #### CBC, CP, HAPT, HBS, AHCV, TREP, HIVCMB, LD #### [address] [address] Optical Laboratory Manager: Sherin Garcia (Bld) [#/Vol]266 10*3/mBQoaqhq530-697 [facility] HealthComment on above:Performed By: #### CBC, CP, HAPT, HBS, AHCV, TREP, HIVCMB, LD #### [address] [address] Optical Laboratory Manager: Hugo Dewey MDRBC (Bld) [#/Vol]3.83 10*6/uLLow3.95-5.11Summa HealthComment on above:Performed By: #### CBC, CP, HAPT, HBS, AHCV, TREP, HIVCMB, LD #### [address] [address] Optical Laboratory Manager: FROYLAN GarciaBC (Bld) [#/Vol]13.6 10*3/uLHigh3.5-11.3MMadera Community HospitalComment on above:Performed By: #### CBC, CP, HAPT, HBS, AHCV, TREP, HIVCMB, LD #### [address] [address] Optical Laboratory Manager: CRISPIN Garciapark city hospital Metabolic Profon 76-52-4543Utiybyq [Mass/Vol]3.2 g/dLLow3.5-5.2MMadera Community HospitalComment on above: Performed By: #### CBC, CP, HAPT, HBS, AHCV, TREP, HIVCMB, LD #### [facility] [address] [place] [address] Optical Laboratory Manager: Hugo Dewey MDAlbumin/Glob Ratio1.6Jarmeh2.0-2.5Summa HealthComment on above:Performed By: #### CBC, CP, HAPT, HBS, AHCV, TREP, HIVCMB, LD #### [facility] [address] [place] [address] Optical Laboratory Manager: Denise Garcialine Ufaj953 U/XEbnk94-549PpfleSumma HealthComment on above:Performed By: #### CBC, CP, HAPT, HBS, AHCV, TREP, HIVCMB, LD #### [facility] [employer] [address] [place] [address] Optical Laboratory Manager: Hugo Dewey MDALT [Catalytic activity/Vol]43 U/LFhxm15-63RtefxSumma HealthComment on above:Performed By: #### CBC, CP, HAPT, HBS, AHCV, TREP, HIVCMB, LD #### [facility] [address] [place] [address] Optical Laboratory Manager: Monica Garcia gap [Moles/Vol]10 mmol/LNormal9-16Summa HealthComment on above:Performed By: #### CBC, CP, HAPT, HBS, AHCV, TREP, HIVCMB, LD #### [facility] [address] [place] [address] Optical Laboratory Manager: Hugo Dewey MDAST [Catalytic activity/Vol]53 U/FYxpq02-48XkxncSumma HealthComment on above:Performed By: #### CBC, CP, HAPT, HBS, AHCV, TREP, HIVCMB, LD #### [facility] [address] [place] [address] Optical Laboratory Manager: Hugo Dewey MDBilirubin [Mass/Vol]0.2 mg/dLNormal0.00-1.20 [facility] HealthComment on above:Performed By: #### CBC, CP, HAPT, HBS, AHCV, TREP, HIVCMB, LD #### [address] [id number] Optical Laboratory Manager: CRISPIN Garciaalcium [Mass/Vol]8.0 mg/dLLow8.6-10.4Summa HealthComment on above:Performed By: #### CBC, CP, HAPT, HBS, AHCV, TREP, HIVCMB, LD #### [address] [address] Optical Laboratory Manager: CRISPIN Garciahloride [Moles/Vol]104 mmol/KYraoaw47-258LkvswSumma HealthComment on above:Performed By: #### CBC, CP, HAPT, HBS, AHCV, TREP, HIVCMB, LD #### [address] [address] Optical Laboratory Manager: CRISPIN GarciaO2 [Moles/Vol]18 mmol/IGrt63-29YpnusSumma HealthComment on above:Performed By: #### CBC, CP, HAPT, HBS, AHCV, TREP, HIVCMB, LD #### [address] [address] Optical Laboratory Manager: CRISPIN Garciareatinine [Mass/Vol]0.4 mg/dLLow0.50-0.90Summa HealthComment on above:Performed By: #### CBC, CP, HAPT, HBS, AHCV, TREP, HIVCMB, LD #### [address] [address] Optical Laboratory Manager: Hugo Dewey MDGFR/1.73 sq M.predicted among non-blacks MDRD (S/P/Bld) [Vol rate/Area]mL/min/{1.73_m2}Normal>60Summa HealthComment on above:Result Comment: These results are not intended for use in patients <18 years of age. eGFR results are calculated without a race factor using the 2020 CKD-EPI equation. Careful clinical correlation is recommended, particularly when comparing to results calculated using previous equations. The CKD-EPI equation is less accurate in patients with extremes of muscle mass, extra-renal metabolism of creatine, excessive creatine ingestion, or following therapy that affects renal tubular secretion.Performed By: #### CBC, CP, HAPT, HBS, AHCV, TREP, HIVCMB, LD #### [place] [address] Optical Laboratory Manager: Hugo Dewey MDGlucose [Mass/Vol]86 mg/eTSpqvpc68-81CvrvsMadera Community HospitalComment on above:Performed By: #### CBC, CP, HAPT, HBS, AHCV, TREP, HIVCMB, LD #### [place] [address] Optical Laboratory Manager: Hugo Dewey MDPotassium [Moles/Vol]4.5 mmol/LNormal3.7-5.3 [facility] HealthComment on above:Performed By: #### CBC, CP, HAPT, HBS, AHCV, TREP, HIVCMB, LD #### [facility] [employer] [address] [place] [address] Optical Laboratory Manager: Huog Dewey MDProtein [Mass/Vol]5.9 g/dLLow6.6-8.7Summa HealthComment on above:Performed By: #### CBC, CP, HAPT, HBS, AHCV, TREP, HIVCMB, LD #### [facility] [employer] [address] [place] [address] Optical Laboratory Manager: Hugo Dewey MDSodium [Moles/Vol]132 mmol/ZNib660-915PmvdgSumma HealthComment on above:Performed By: #### CBC, CP, HAPT, HBS, AHCV, TREP, HIVCMB, LD #### [address] [address] Optical Laboratory Manager: Hugo Dewey MDUrea nitrogen [Mass/Vol]8 mg/dLNormal6-20Summa HealthComment on above:Performed By: #### CBC, CP, HAPT, HBS, AHCV, TREP, HIVCMB, LD #### [address] [address] Optical Laboratory Manager: Gayle Garcia 02-90-2513Wiggdvhocvy distribution width (RBC) [Ratio]14.6 %High11.8-14.4Summa HealthComment on above:Performed By: #### CBC, CP, HAPT, HBS, AHCV, TREP, HIVCMB, LD #### [place] [address] Optical Laboratory Manager: Hugo Dewey MDHematocrit (Bld) [Volume fraction]29.8 %Low 36.3-47.1MMadera Community HospitalComment on above:Performed By: #### CBC, CP, HAPT, HBS, AHCV, TREP, HIVCMB, LD #### [address] [address] Optical Laboratory Manager: Hugo Dewey MDHemoglobin (Bld) [Mass/Vol]9.9 g/dLLow11.9-15.1 [facility]ma HealthComment on above:Performed By: #### CBC, CP, HAPT, HBS, AHCV, TREP, HIVCMB, LD #### [address] [address] Optical Laboratory Manager: LANE GarciaCH (RBC) [Entitic mass]30.5 qnQnqpps91.2-33.5 [facility] HealthComment on above:Performed By: #### CBC, CP, HAPT, HBS, AHCV, TREP, HIVCMB, LD #### [place] [address] Optical Laboratory Manager: ZAIRA GarciaC (RBC) [Mass/Vol]33.2 g/gAVstrur89.4-34.8 [facility] HealthComment on above:Performed By: #### CBC, CP, HAPT, HBS, AHCV, TREP, HIVCMB, LD #### [place] [address] Optical Laboratory Manager: HEIDE Garcia (RBC) [Entitic vol]91.7 tGUzrmgl90.6-102.9 [facility] HealthComment on above:Performed By: #### CBC, CP, HAPT, HBS, AHCV, TREP, HIVCMB, LD #### [place] [address] Optical Laboratory Manager: Hugo Dewey MDNRBC Automated0.0 per 100 WBCNormal0.0Summa HealthComment on above:Performed By: #### CBC, CP, HAPT, HBS, AHCV, TREP, HIVCMB, LD #### [place] [address] Optical Laboratory Manager: Paty Garcia mean volume (Bld) [Entitic vol]10.4 fL Normal8.1-13.5Summa HealthComment on above:Performed By: #### CBC, CP, HAPT, HBS, AHCV, TREP, HIVCMB, LD #### [place] [address] Optical Laboratory Manager: Sherin Garcia (Bld) [#/Vol]215 10*3/pGFmowtf381-346 [facility] HealthComment on above:Performed By: #### CBC, CP, HAPT, HBS, AHCV, TREP, HIVCMB, LD #### [facility] [employer] [address] [place] [address] Optical Laboratory Manager: CASSY Garcia ([facility]) [#/Vol]3.25 10*6/uLLow3.95-5.11Summa HealthComment on above:Performed By: #### CBC, CP, HAPT, HBS, AHCV, TREP, HIVCMB, LD #### [address] [address] Optical Laboratory Manager: FROYLAN Garcia ([facility]) [#/Vol]11.4 10*3/uLHigh3.5-11.3MMadera Community HospitalComment on above:Performed By: #### CBC, CP, HAPT, HBS, AHCV, TREP, HIVCMB, LD #### [address] [address] Optical Laboratory Manager: CRISPIN Garciapark city hospital Metabolic Profon 64-52-1895Ehmpise [Mass/Vol]2.8 g/dLLow3.5-5.2MMadera Community HospitalComment on above: Performed By: #### CBC, CP, HAPT, HBS, AHCV, TREP, HIVCMB, LD #### [facility] [employer] [address] [place] [address] Optical Laboratory Manager: Hugo Dewey MDAlbumin/Glob Ratio1.4Lpijes2.0-2.5Summa HealthComment on above:Performed By: #### CBC, CP, HAPT, HBS, AHCV, TREP, HIVCMB, LD #### [facility] [employer] [address] [place] [address] Optical Laboratory Manager: Latrice Garcia Phos94 U/EQkalao58-716ErpkzSumma HealthComment on above:Performed By: #### CBC, CP, HAPT, HBS, AHCV, TREP, HIVCMB, LD #### [facility] [address] [place] [address] Optical Laboratory Manager: Hugo Dewey MDALT [Catalytic activity/Vol]40 U/18 Clark StreetComment on above:Performed By: #### CBC, CP, HAPT, HBS, AHCV, TREP, HIVCMB, LD #### [facility] [address] [place] [address] Optical Laboratory Manager: Hugo Dewey MDAnion gap [Moles/Vol]7 mmol/LLow9-16Summa HealthComment on above:Performed By: #### CBC, CP, HAPT, HBS, AHCV, TREP, HIVCMB, LD #### [address] [address] Optical Laboratory Manager: Hugo Dewey MDAST [Catalytic activity/Vol]65 U/18 Clark StreetComment on above:Performed By: #### CBC, CP, HAPT, HBS, AHCV, TREP, HIVCMB, LD #### [place] [address] Optical Laboratory Manager: Hugo Dewey MDBilirubin [Mass/Vol]mg/dLNormal0.00-1.20Summa HealthComment on above:Performed By: #### CBC, CP, HAPT, HBS, AHCV, TREP, HIVCMB, LD #### [facility] [address] [place] [address] Optical Laboratory Manager: CRISPIN Garciaalcium [Mass/Vol]6.5 mg/dLLow8.6-10.4Summa HealthComment on above:Performed By: #### CBC, CP, HAPT, HBS, AHCV, TREP, HIVCMB, LD #### [facility] [address] [place] [address] Optical Laboratory Manager: CRISPIN Garciahloride [Moles/Vol]105 mmol/LVzdsau78-336VpywrSumma HealthComment on above:Performed By: #### CBC, CP, HAPT, HBS, AHCV, TREP, HIVCMB, LD #### [facility] [address] [place] [address] Optical Laboratory Manager: Hugo Dewey MDCO2 [Moles/Vol]23 mmol/KYsqmmj29-51HifcjSumma HealthComment on above:Performed By: #### CBC, CP, HAPT, HBS, AHCV, TREP, HIVCMB, LD #### [address] [address] Optical Laboratory Manager: CRISPIN Garciareatinine [Mass/Vol]0.5 mg/dLNormal0.50-0.90 Summa HealthComment on above:Performed By: #### CBC, CP, HAPT, HBS, AHCV, TREP, HIVCMB, LD #### [address] [address] Optical Laboratory Manager: Hugo Dewey MDGFR/1.73 sq M.predicted among non-blacks MDRD (S/P/Bld) [Vol rate/Area]mL/min/{1.73_m2}Normal>60Summa HealthComment on above:Result Comment: These results are not intended for use in patients <18 years of age. eGFR results are calculated without a race factor using the 2020 CKD-EPI equation. Careful clinical correlation is recommended, particularly when comparing to results calculated using previous equations. The CKD-EPI equation is less accurate in patients with extremes of muscle mass, extra-renal metabolism of creatine, excessive creatine ingestion, or following therapy that affects renal tubular secretion.Performed By: #### CBC, CP, HAPT, HBS, AHCV, TREP, HIVCMB, LD #### [address] [id number] Optical Laboratory Manager: Hugo Dewey MDGlucose [Mass/Vol]88 mg/kBCmnwtz64-77CxuafMadera Community HospitalComment on above:Performed By: #### CBC, CP, HAPT, HBS, AHCV, TREP, HIVCMB, LD #### [address] [address] Optical Laboratory Manager: Hugo Dewey MDPotassium [Moles/Vol]4.1 mmol/LNormal3.7-5.3 [facility] HealthComment on above:Performed By: #### CBC, CP, HAPT, HBS, AHCV, TREP, HIVCMB, LD #### [place] [address] Optical Laboratory Manager: Hugo Dewey MDProtein [Mass/Vol]5.1 g/dLLow6.6-8.7Summa HealthComment on above:Performed By: #### CBC, CP, HAPT, HBS, AHCV, TREP, HIVCMB, LD #### [place] [address] Optical Laboratory Manager: Hugo Dewey MDSodium [Moles/Vol]135 mmol/FGzm100-601PschaSumma HealthComment on above:Performed By: #### CBC, CP, HAPT, HBS, AHCV, TREP, HIVCMB, LD #### [place] [address] Optical Laboratory Manager: Hugo Dewey MDUrea nitrogen [Mass/Vol]9 mg/dLNormal6-20Summa HealthComment on above:Performed By: #### CBC, CP, HAPT, HBS, AHCV, TREP, HIVCMB, LD #### [place] [address] Optical Laboratory Manager: Gayle Garcia 25-48-0295Tozueacdraz distribution width (RBC) [Ratio]13.9 %Nuzafm49.8-14.4Summa HealthComment on above:Performed By: #### MG, CP, CBC #### [place] [address] Optical Laboratory Manager: Hugo Dewey MDHematocrit (Bld) [Volume fraction]32.1 %Low 36.3-47.1MMadera Community HospitalComment on above:Performed By: #### MG, CP, CBC #### [place] [address] Optical Laboratory Manager: Hugo Dewey MDHemoglobin (Bld) [Mass/Vol]11.3 g/dLLow11.9-15.1 Summa HealthComment on above:Performed By: #### MG, CP, CBC #### [place] [address] Optical Laboratory Manager: LANE GarciaCH (RBC) [Entitic mass]30.7 fvNtahil28.2-33.5 Summa HealthComment on above:Performed By: #### MG, CP, CBC #### [place] [address] Optical Laboratory Manager: LANE GarciaCHC (RBC) [Mass/Vol]35.2 g/wWHhkf25.4-34.8Summa HealthComment on above:Performed By: #### MG, CP, CBC #### [place] [address] Optical Laboratory Manager: LANE GarciaCV (RBC) [Entitic vol]87.2 wJLgcmxo21.6-102.9 Summa HealthComment on above:Performed By: #### MG, CP, CBC #### [place] [address] Optical Laboratory Manager: Hugo Dewey MDNRBC Automated0.0 per 100 WBCNormal0.0Summa HealthComment on above:Performed By: #### MG, CP, CBC #### [facility] [employer] [address] [place] [address] Optical Laboratory Manager: Henrry Garciateclaudine mean volume (Bld) [Entitic vol]11.6 fL Normal8.1-13.5Summa HealthComment on above:Performed By: #### MG, CP, CBC #### [facility] [employer] [address] [place] [address] Optical Laboratory Manager: HUBER Garcialatelets (Bld) [#/Vol]251 10*3/wAPzovfy615-313 Summa HealthComment on above:Performed By: #### MG, CP, CBC #### [facility] [employer] [address] [place] [address] Optical Laboratory Manager: Hugo Dewey MDRBC (Bld) [#/Vol]3.68 10*6/uLLow3.95-5.11Summa HealthComment on above:Performed By: #### MG, CP, CBC #### [facility] [employer] [address] [place] [address] Optical Laboratory Manager: Hugo Dewey MDWBC (Bld) [#/Vol]19.7 10*3/uLHigh3.5-11.3MMadera Community HospitalComment on above:Performed By: #### MG, CP, CBC #### [facility] [employer] [address] [place] [address] Optical Laboratory Manager: Hugo Dewey MDCT CHEST PULMONARY EMBOLISM W CONTRASTon [id number] CHEST PULMONARY EMBOLISM W CONTRASTEXAMINATION: CTA OF THE CHEST 01/10/2024 3:36 pm TECHNIQUE: CTA of the chest was performed after the administration of intravenous contrast. Multiplanar reformatted images are provided for review. MIP images are provided for review. Automated exposure control, iterative reconstruction, and/or weight based adjustment of the mA/kV was utilized to reduce the radiation dose to as low as reasonably achievable. COMPARISON: Radiograph 01/09/2024. HISTORY: ORDERING SYSTEM PROVIDED HISTORY: , tachycardia TECHNOLOGIST PROVIDED HISTORY: , tachycardia Additional Contrast?->1 Reason for Exam: , tachycardia FINDINGS: Pulmonary Arteries: Pulmonary arteries are adequately opacified for evaluation. No evidence of intraluminal filling defect to suggest pulmonary embolism. Main pulmonary artery is normal in caliber. Mediastinum: There is no lymphadenopathy. The thoracic aorta is normal in caliber and is opacified. There is no dissection. There is an aberrant right subclavian artery. The heart is not enlarged. There is no pericardial effusion. Lungs/pleura: There is a 4 mm left lower lobe nodule on image 68 of series 4. There are mild linear opacities at the lung bases. There is a 4-5 mm right lower lobe nodule on image 75. There is no confluent airspace consolidation or pleural effusion. The central airways are normally patent. Upper Abdomen: Limited images of the upper abdomen are unremarkable. Soft Tissues/Bones: No acute bone or soft tissue abnormality. IMPRESSION: 1. No pulmonary embolism or other acute finding in the chest. 2. Mild linear opacities at the lung bases likely represent scarring. 3. Indeterminate sub 5 mm nodules in the lower lobes. No routine follow-up is recommended for nodules of this size. In high risk patients, a 1 year follow-up unenhanced chest CT is optional. 4. Aberrant right subclavian artery. RECOMMENDATIONS: Lung nodule Fleischner Society guidelines for follow-up and management of incidentally detected pulmonary nodules: Multiple Solid Nodules: ~Nodule size less than 6 mm. In a low-risk patient, no routine follow-up. In a high-risk patient, optional CT at 12 months. Radiology 2017 http://pubs.rsna.org/doi/full/10.1148/radiol.2191619664 Interpreted by: Marcelino Phillips MD Signed by: Marcelino Phillips MD 01/10/24 Final resultNormalMercy Saint Francis Memorial HospitalComp Metabolic Profon 18-62-8374Sgslyef [Mass/Vol]2.8 g/dLLow3.5-5.2[facility] Comment on above:Performed By: #### MG, CP, CBC #### [employer] [address] [place] [address] Optical Laboratory Manager: Hugo Dewey MDAlbumin/Glob Ratio1.0Nxxwug3.0-2.5Summa HealthComment on above:Performed By: #### MG CP, CBC #### [facility] [address] [place] [address] Optical Laboratory Manager: Jason Garciakaline Beee548 U/BGpvt82-668GdepmSumma HealthComment on above:Performed By: #### MG, CP, CBC #### [facility] [address] [place] [address] Optical Laboratory Manager: Hugo Dewey MDALT [Catalytic activity/Vol]30 U/GJafqqg24-72 [facility] HealthComment on above:Performed By: #### MG CP, CBC #### [address] [address] Optical Laboratory Manager: Hugo Dewey MDAnion gap [Moles/Vol]15 mmol/LNormal9-16Summa HealthComment on above:Performed By: #### MG CP, CBC #### [address] [address] Optical Laboratory Manager: Hugo Dewey MDAST [Catalytic activity/Vol]70 U/ZBmhg50-06OmmbbSumma HealthComment on above:Result Comment: SPECIMEN SLIGHTLY HEMOLYZED, RESULTS MAY BE ADVERSELY AFFECTED.Performed By: #### MG CP, CBC #### [address] [address] Optical Laboratory Manager: Hugo Dewey MDBilirubin [Mass/Vol]mg/dLNormal0.00-1.20Summa HealthComment on above:Performed By: #### MG, CP, CBC #### [facility] [employer] [address] [place] [address] Optical Laboratory Manager: Hugo Dewey MDCalcium [Mass/Vol]6.8 mg/dLLow8.6-10.4Summa HealthComment on above:Performed By: #### MG, CP, CBC #### [facility] [address] [place] [address] Optical Laboratory Manager: CRISPIN Garciahloride [Moles/Vol]98 mmol/CBlibma60-283YqafmSumma HealthComment on above:Performed By: #### MG, CP, CBC #### [facility] [address] [place] [address] Optical Laboratory Manager: Hugo Dewey MDCO2 [Moles/Vol]15 mmol/OOzl37-05XebfoSumma HealthComment on above:Performed By: #### MG CP, CBC #### [facility] [address] [place] [address] Optical Laboratory Manager: CRISPIN Garciareatinine [Mass/Vol]0.6 mg/dLNormal0.50-0.90 Summa HealthComment on above:Performed By: #### MG CP, CBC #### [facility] [address] [place] [address] Optical Laboratory Manager: Hugo Dewey MDGFR/1.73 sq M.predicted among non-blacks MDRD (S/P/Bld) [Vol rate/Area]mL/min/{1.73_m2}Normal>60Summa HealthComment on above:Result Comment: These results are not intended for use in patients <18 years of age. eGFR results are calculated without a race factor using the 2020 CKD-EPI equation. Careful clinical correlation is recommended, particularly when comparing to results calculated using previous equations. The CKD-EPI equation is less accurate in patients with extremes of muscle mass, extra-renal metabolism of creatine, excessive creatine ingestion, or following therapy that affects renal tubular secretion.Performed By: #### MG, CP, CBC #### [facility] [address] [place] [address] Optical Laboratory Manager: Hugo Dewey MDGlucose [Mass/Vol]108 mg/mUHrng47-81Zjypk [facility] HospitalComment on above:Performed By: #### MG, CP, CBC #### [facility] [address] [place] [address] Optical Laboratory Manager: Hugo Dewey MDPotassium [Moles/Vol]4.5 mmol/LNormal3.7-5.3 [facility]ma HealthComment on above:Result Comment: SPECIMEN SLIGHTLY HEMOLYZED, RESULTS MAY BE ADVERSELY AFFECTED.Performed By: #### MG, CP, CBC #### [place] [address] Optical Laboratory Manager: Hugo Dewey MDProtein [Mass/Vol]5.4 g/dLLow6.6-8.7Summa HealthComment on above:Performed By: #### MG, CP, CBC #### [place] [address] Optical Laboratory Manager: Hugo Dewey MDSodium [Moles/Vol]128 mmol/HBwx022-359XknzgSumma HealthComment on above:Performed By: #### MG, CP, CBC #### [place] [address] Optical Laboratory Manager: Hugo Dewey MDUrea nitrogen [Mass/Vol]12 mg/dLNormal6-20Summa HealthComment on above:Performed By: #### MG, CP, CBC #### [place] [address] Optical Laboratory Manager: Hugo Dewey MDMagnesiumon [id number] [Mass/Vol]6.3 mg/dLCritically high1.6-2.6MMadera Community HospitalComment on above: Result Comment: TEST CONFIRMEDPerformed By: #### CBC, CP, HAPT, HBS, AHCV, TREP, HIVCMB, LD #### [facility] [address] [place] [address] Optical Laboratory Manager: Fernanda Garcia [id number] Coag (Bld) [Time]26.0 s Zdxcod74.0-36.5Summa HealthComment on above:Result Comment: IV Heparin Therapy Range: 66.0-92.0 secPerformed By: #### CBC, CP, HAPT, HBS, AHCV, TREP, HIVCMB, LD #### [employer] [facility] [address] [place] [address] Optical Laboratory Manager: Leena Garcia Bld Gas,POCon 26-27-8800Qdtsk Test PositiveNormalSumma HealthFIO230.0NormalSumma HealthHCO3 (Bld) [Moles/Vol]19.1 mmol/LLow21.0-28.0Summa HealthNegative Base Excess (calc)5.6 mmol/LHigh0.0-2.0Summa HealthO2 DeviceAdult VentilatorNormalSumma Health Oxygen saturation in Blood98.0 %Udleok69.0-98.0[facility] pCO2, Qcwetywu44.1 mm HgLow35.0-48.0Summa HealthpH, Arterial 7.226Kxnigc1.350-7.450Summa HealthpO2, Cqdujgqu545.0 mm Hg Jinkmw79.0-108.0[facility] Hospitalite DrawnLeft Radial Artery NormalSumma HealthCBCon 29-07-8668Xqmeaoplcue distribution width (RBC) [Ratio]14.1 %Kzlvem25.8-14.4Summa HealthComment on above:Performed By: #### CBC, CP, HAPT, HBS, AHCV, TREP, HIVCMB, LD #### [employer] [address] [place] [address] Optical Laboratory Manager: Hugo Dewey MDHematocrit (Bld) [Volume fraction]39.0 %Normal 36.3-47.1MercMesilla Valley HospitalDry Ridge Medical CenterComment on above:Performed By: #### CBC, CP, HAPT, HBS, AHCV, TREP, HIVCMB, LD #### [address] [id number] Optical Laboratory Manager: Hugo Dewey MDHemoglobin (Bld) [Mass/Vol]13.3 g/dLNormal 11.9-15.1MMadera Community HospitalComment on above:Performed By: #### CBC, CP, HAPT, HBS, AHCV, TREP, HIVCMB, LD #### [place] [id number] Optical Laboratory Manager: LANE GarciaCH (RBC) [Entitic mass]31.3 gnAzkbpq04.2-33.5 Summa HealthComment on above:Performed By: #### CBC, CP, HAPT, HBS, AHCV, TREP, HIVCMB, LD #### [place] [id number] Optical Laboratory Manager: ZAIRA GarciaC (RBC) [Mass/Vol]34.1 g/sRDhsdts03.4-34.8 Summa HealthComment on above:Performed By: #### CBC, CP, HAPT, HBS, AHCV, TREP, HIVCMB, LD #### [place] [address] Optical Laboratory Manager: LANE GarciaCV (RBC) [Entitic vol]91.8 mBVdvthg09.6-102.9 Summa HealthComment on above:Performed By: #### CBC, CP, HAPT, HBS, AHCV, TREP, HIVCMB, LD #### [address] [phone] Optical Laboratory Manager: Hugo Dewey MDNRBC Automated0.0 per 100 WBCNormal0.0Summa HealthComment on above:Performed By: #### CBC, CP, HAPT, HBS, AHCV, TREP, HIVCMB, LD #### [address] [address] Optical Laboratory Manager: Paty Garcia mean volume (Bld) [Entitic vol]11.5 fL Normal8.1-13.5Summa HealthComment on above:Performed By: #### CBC, CP, HAPT, HBS, AHCV, TREP, HIVCMB, LD #### [address] [address] Optical Laboratory Manager: Sherin Garcia (Bld) [#/Vol]393 10*3/cXInprzu818-025 Summa HealthComment on above:Performed By: #### CBC, CP, HAPT, HBS, AHCV, TREP, HIVCMB, LD #### [address] [address] Optical Laboratory Manager: CASSY GarciaBC (Bld) [#/Vol]4.25 10*6/uLNormal3.95-5.11 Summa HealthComment on above:Performed By: #### CBC, CP, HAPT, HBS, AHCV, TREP, HIVCMB, LD #### [address] [address] Optical Laboratory Manager: Hugo Dewey MDWBC (Bld) [#/Vol]24.4 10*3/uLHigh3.5-11.3Mnewark hospitaly [facility] HospitalComment on above:Performed By: #### CBC, CP, HAPT, HBS, AHCV, TREP, HIVCMB, LD #### [address] [address] Optical Laboratory Manager: Hugo Dewey MDErythrocyte distribution width (RBC) [Ratio]13.7 %Jvhcyq66.8-14.4Summa HealthComment on above:Performed By: #### CBC, CP, HAPT, HBS, AHCV, TREP, HIVCMB, LD #### [place] [address] Optical Laboratory Manager: Hugo Dewey MDHematocrit (Bld) [Volume fraction]42.7 %Normal 36.3-47.1MMadera Community HospitalComment on above:Performed By: #### CBC, CP, HAPT, HBS, AHCV, TREP, HIVCMB, LD #### [place] [address] Optical Laboratory Manager: Hugo Dewey MDHemoglobin (Bld) [Mass/Vol]13.8 g/dLNormal 11.9-15.1MMadera Community HospitalComment on above:Performed By: #### CBC, CP, HAPT, HBS, AHCV, TREP, HIVCMB, LD #### [place] [address] Optical Laboratory Manager: LANE GarciaCH (RBC) [Entitic mass]30.7 jtCmphjg41.2-33.5 Summa HealthComment on above:Performed By: #### CBC, CP, HAPT, HBS, AHCV, TREP, HIVCMB, LD #### [place] [phone] Optical Laboratory Manager: ZAIRA GarciaC (RBC) [Mass/Vol]32.3 g/hKCugwow86.4-34.8 Summa HealthComment on above:Performed By: #### CBC, CP, HAPT, HBS, AHCV, TREP, HIVCMB, LD #### [address] [id number] Optical Laboratory Manager: LANE GarciaCV (RBC) [Entitic vol]94.9 vREaootw09.6-102.9 Summa HealthComment on above:Performed By: #### CBC, CP, HAPT, HBS, AHCV, TREP, HIVCMB, LD #### [place] [address] Optical Laboratory Manager: SOBIA Garcia Automated0.1 per 100 WBCHigh0.0Summa HealthComment on above:Performed By: #### CBC, CP, HAPT, HBS, AHCV, TREP, HIVCMB, LD #### [place] [address] Optical Laboratory Manager: Paty Garcia mean volume (Bld) [Entitic vol]11.6 fL Normal8.1-13.5Summa HealthComment on above:Performed By: #### CBC, CP, HAPT, HBS, AHCV, TREP, HIVCMB, LD #### [place] [address] Optical Laboratory Manager: Sherin Garcia (Bld) [#/Vol]291 10*3/pHMkgbdg811-980 Summa HealthComment on above:Performed By: #### CBC, CP, HAPT, HBS, AHCV, TREP, HIVCMB, LD #### [place] [address] Optical Laboratory Manager: VAHID Garcia (Bld) [#/Vol]4.50 10*6/uLNormal3.95-5.11 Summa HealthComment on above:Performed By: #### CBC, CP, HAPT, HBS, AHCV, TREP, HIVCMB, LD #### [address] [address] Optical Laboratory Manager: KWAME Garcia (Bld) [#/Vol]13.8 10*3/uLHigh3.5-11.3MMadera Community HospitalComment on above:Performed By: #### CBC, CP, HAPT, HBS, AHCV, TREP, HIVCMB, LD #### [facility] [address] [place] [address] Optical Laboratory Manager: TRACEE Garcia with Diffon [id number]. Basophil0.00 k/uL Normal0.0-0.2MMadera Community HospitalComment on above:Performed By: #### CBC, CP, HAPT, HBS, AHCV, TREP, HIVCMB, LD #### [facility] [address] [place] [address] Optical Laboratory Manager: MDAbs. JoseImm.Granulocyte0.80 k/uLHigh0.00-0.30Summa HealthComment on above:Performed By: #### CBC, CP, HAPT, HBS, AHCV, TREP, HIVCMB, LD #### [facility] [employer] [address] [place] [address] Optical Laboratory Manager: MDAbs. JoseNeutrophil (Seg)25.10 k/uLHigh1.8-7.7Summa HealthComment on above:Performed By: #### CBC, CP, HAPT, HBS, AHCV, TREP, HIVCMB, LD #### [facility] [address] [place] [address] Optical Laboratory Manager: Hugo Dewey MDBasophils/100 WBC (Bld)0 %Normal0-2MMadera Community HospitalComment on above:Performed By: #### CBC, CP, HAPT, HBS, AHCV, TREP, HIVCMB, LD #### [facility] [employer] [address] [place] [address] Optical Laboratory Manager: Hugo Dewey MDEosinophils (Bld) [#/Vol]0.27 10*3/uLNormal 0.0-0.4Summa HealthComment on above:Performed By: #### CBC, CP, HAPT, HBS, AHCV, TREP, HIVCMB, LD #### [address] [address] Optical Laboratory Manager: Hugo Dewey MDEosinophils/100 WBC (Bld)1 %Normal1-4Summa HealthComment on above:Performed By: #### CBC, CP, HAPT, HBS, AHCV, TREP, HIVCMB, LD #### [address] [address] Optical Laboratory Manager: Hugo Dewey MDImmature granulocytes/100 WBC (Bld)3 %Jcnw9WvkseSumma HealthComment on above:Performed By: #### CBC, CP, HAPT, HBS, AHCV, TREP, HIVCMB, LD #### [place] [address] Optical Laboratory Manager: Hugo Dewey MDLymphocytes (Bld) [#/Vol]0.53 10*3/uLLow1.0-4.8 Summa HealthComment on above:Performed By: #### CBC, CP, HAPT, HBS, AHCV, TREP, HIVCMB, LD #### [facility] [employer] [address] [place] [address] Optical Laboratory Manager: Domingo Garciamphocytes/100 WBC (Bld)2 %Yye00-04NfzrxSumma HealthComment on above:Performed By: #### CBC, CP, HAPT, HBS, AHCV, TREP, HIVCMB, LD #### [facility] [employer] [address] [place] [address] Optical Laboratory Manager: LANE Garciaonocytes (Bld) [#/Vol]0.00 10*3/uLLow0.1-0.8 Summa HealthComment on above:Performed By: #### CBC, CP, HAPT, HBS, AHCV, TREP, HIVCMB, LD #### [address] [address] Optical Laboratory Manager: LANE Garciaonocytes/100 WBC (Bld)0 %Low1-7Summa HealthComment on above:Performed By: #### CBC, CP, HAPT, HBS, AHCV, TREP, HIVCMB, LD #### [address] [address] Optical Laboratory Manager: LANE Garciaorphology Garfield (Bld) [Interp]NormalNormalSumma HealthComment on above:Performed By: #### CBC, CP, HAPT, HBS, AHCV, TREP, HIVCMB, LD #### [address] [address] Optical Laboratory Manager: Hguo Dewey MDNeutrophil (Seg)94 %Hznr42-81OtcswSumma HealthComment on above:Performed By: #### CBC, CP, HAPT, HBS, AHCV, TREP, HIVCMB, LD #### [address] [address] Optical Laboratory Manager: Hugo Dewey MDErythrocyte distribution width (RBC) [Ratio]13.6 %Lcbhes57.8-14.4Summa HealthComment on above:Performed By: #### CBC, CP, HAPT, HBS, AHCV, TREP, HIVCMB, LD #### [address] [address] Optical Laboratory Manager: Hugo Dewey MDHematocrit (Bld) [Volume fraction]40.3 %Normal 36.3-47.1Mnewark hospitaly [facility] HospitalComment on above:Performed By: #### CBC, CP, HAPT, HBS, AHCV, TREP, HIVCMB, LD #### [address] [address] Optical Laboratory Manager: Hugo Dewey MDHemoglobin (Bld) [Mass/Vol]13.2 g/dLNormal 11.9-15.1MMadera Community HospitalComment on above:Performed By: #### CBC, CP, HAPT, HBS, AHCV, TREP, HIVCMB, LD #### [address] [id number] Optical Laboratory Manager: LANE GarciaCH (RBC) [Entitic mass]30.8 hiJtuoss89.2-33.5 Summa HealthComment on above:Performed By: #### CBC, CP, HAPT, HBS, AHCV, TREP, HIVCMB, LD #### [place] [address] Optical Laboratory Manager: ZAIRA GarciaC (RBC) [Mass/Vol]32.8 g/nZDcwpzw54.4-34.8 Summa HealthComment on above:Performed By: #### CBC, CP, HAPT, HBS, AHCV, TREP, HIVCMB, LD #### [place] [address] Optical Laboratory Manager: HEIDE Garcia (RBC) [Entitic vol]93.9 sGLxyauc21.6-102.9 Summa HealthComment on above:Performed By: #### CBC, CP, HAPT, HBS, AHCV, TREP, HIVCMB, LD #### [place] [address] Optical Laboratory Manager: Hugo Dewey MDNRBC Automated0.1 per 100 WBCHigh0.0Summa HealthComment on above:Performed By: #### CBC, CP, HAPT, HBS, AHCV, TREP, HIVCMB, LD #### [address] [id number] Optical Laboratory Manager: Henrry Garciatelet mean volume (Bld) [Entitic vol]11.1 fL Normal8.1-13.5Summa HealthComment on above:Performed By: #### CBC, CP, HAPT, HBS, AHCV, TREP, HIVCMB, LD #### [facility] [employer] [address] [place] [phone] Optical Laboratory Manager: Sherin Garcia ([facility]) [#/Vol]298 10*3/zYYcpien706-351 Summa HealthComment on above:Performed By: #### CBC, CP, HAPT, HBS, AHCV, TREP, HIVCMB, LD #### [facility] [employer] [address] [place] [phone] Optical Laboratory Manager: VAHID Garcia ([facility]) [#/Vol]4.29 10*6/uLNormal3.95-5.11 Summa HealthComment on above:Performed By: #### CBC, CP, HAPT, HBS, AHCV, TREP, HIVCMB, LD #### [facility] [employer] [address] [place] [address] [phone] Optical Laboratory Manager: KWAME Garcia ([facility]) [#/Vol]26.7 10*3/uLHigh3.5-11.3MMadera Community HospitalComment on above:Performed By: #### CBC, CP, HAPT, HBS, AHCV, TREP, HIVCMB, LD #### [facility] [employer] [address] [place] [id number] Optical Laboratory Manager: Hugo Dewey MDCT HEAD WO CONTRASTon 03-28-1149EE HEAD WO CONTRASTEXAMINATION: CT OF THE HEAD WITHOUT CONTRAST 01/09/2024 12:59 pm TECHNIQUE: CT of the head was performed without the administration of intravenous contrast. Automated exposure control, iterative reconstruction, and/or weight based adjustment of the mA/kV was utilized to reduce the radiation dose to as low as reasonably achievable. COMPARISON: None. HISTORY: ORDERING SYSTEM PROVIDED HISTORY: eclamptic seizure TECHNOLOGIST PROVIDED HISTORY: eclamptic seizure Is the patient ?->No Reason for Exam: eclamptic seizure FINDINGS: BRAIN/VENTRICLES: There is no acute intracranial hemorrhage, mass effect or midline shift. No abnormal extra-axial fluid collection. The fernandez-white differentiation is maintained without evidence of an acute infarct. There is no evidence of hydrocephalus. ORBITS: The visualized portion of the orbits demonstrate no acute abnormality. SINUSES: The visualized paranasal sinuses and mastoid air cells demonstrate no acute abnormality. SOFT TISSUES/SKULL: No acute abnormality of the visualized skull or soft tissues. IMPRESSION: No acute intracranial abnormality. Interpreted by: Ulysses Soto MD Signed by: Ulysses Soto MD 01/09/24 Final resultNormalSumma HealthComp Metabolic Profon 23-15-9190Eziztwb [Mass/Vol]2.8 g/dLLow3.5-5.2MMadera Community Hospital Comment on above:Performed By: #### CBC, CP, HAPT, HBS, AHCV, TREP, HIVCMB, LD #### [facility] [address] [place] [address] Optical Laboratory Manager: Hugo Dewey MDAlbumin/Glob Ratio1.5Xazwhl9.0-2.5Summa HealthComment on above:Performed By: #### CBC, CP, HAPT, HBS, AHCV, TREP, HIVCMB, LD #### [employer] [address] [place] [address] Optical Laboratory Manager: Latrice Garcia Uevs305 U/BEjof33-444CmqkvSumma HealthComment on above:Performed By: #### CBC, CP, HAPT, HBS, AHCV, TREP, HIVCMB, LD #### [employer] [address] [place] [address] Optical Laboratory Manager: Hugo Dewey MDALT [Catalytic activity/Vol]30 U/ZQyqnrx65-11 Summa HealthComment on above:Performed By: #### CBC, CP, HAPT, HBS, AHCV, TREP, HIVCMB, LD #### [employer] [address] [place] [address] Optical Laboratory Manager: Hugo Dewey MDAnisergey gap [Moles/Vol]13 mmol/LNormal9-16Summa HealthComment on above:Performed By: #### CBC, CP, HAPT, HBS, AHCV, TREP, HIVCMB, LD #### [address] [address] Optical Laboratory Manager: Hugo Dewey MDAST [Catalytic activity/Vol]74 U/RPuvj72-88UrjkhSumma HealthComment on above:Result Comment: SPECIMEN SLIGHTLY HEMOLYZED, RESULTS MAY BE ADVERSELY AFFECTED.Performed By: #### CBC, CP, HAPT, HBS, AHCV, TREP, HIVCMB, LD #### [address] [address] Optical Laboratory Manager: Hugo Dewey MDBilirubin [Mass/Vol]mg/dLNormal0.00-1.20Summa HealthComment on above:Performed By: #### CBC, CP, HAPT, HBS, AHCV, TREP, HIVCMB, LD #### [address] [address] Optical Laboratory Manager: CRISPIN Garciaalcium [Mass/Vol]7.5 mg/dLLow8.6-10.4Summa HealthComment on above:Performed By: #### CBC, CP, HAPT, HBS, AHCV, TREP, HIVCMB, LD #### [facility] [employer] [address] [place] [address] Optical Laboratory Manager: CRISPIN Garciahloride [Moles/Vol]100 mmol/DZtlkgc82-625KxcbdSumma HealthComment on above:Performed By: #### CBC, CP, HAPT, HBS, AHCV, TREP, HIVCMB, LD #### [facility] [employer] [address] [place] [address] Optical Laboratory Manager: Hugo Dewey MDCO2 [Moles/Vol]15 mmol/EAtd31-31IdlhkSumma HealthComment on above:Performed By: #### CBC, CP, HAPT, HBS, AHCV, TREP, HIVCMB, LD #### [address] [address] Optical Laboratory Manager: CRISPIN Garciareatinine [Mass/Vol]0.6 mg/dLNormal0.50-0.90 Summa HealthComment on above:Performed By: #### CBC, CP, HAPT, HBS, AHCV, TREP, HIVCMB, LD #### [place] [address] Optical Laboratory Manager: Hugo Dewey MDGFR/1.73 sq M.predicted among non-blacks MDRD (S/P/Bld) [Vol rate/Area]mL/min/{1.73_m2}Normal>60Summa HealthComment on above:Result Comment: These results are not intended for use in patients <18 years of age. eGFR results are calculated without a race factor using the 2020 CKD-EPI equation. Careful clinical correlation is recommended, particularly when comparing to results calculated using previous equations. The CKD-EPI equation is less accurate in patients with extremes of muscle mass, extra-renal metabolism of creatine, excessive creatine ingestion, or following therapy that affects renal tubular secretion.Performed By: #### CBC, CP, HAPT, HBS, AHCV, TREP, HIVCMB, LD #### [facility] [employer] [address] [place] [address] Optical Laboratory Manager: Hugo Dewey MDGlucose [Mass/Vol]129 mg/fHXshw92-15VfyqyMadera Community HospitalComment on above:Performed By: #### CBC, CP, HAPT, HBS, AHCV, TREP, HIVCMB, LD #### [facility] [employer] [address] [place] [address] Optical Laboratory Manager: HUBER Garciaotassium [Moles/Vol]4.5 mmol/LNormal3.7-5.3 Summa HealthComment on above:Result Comment: SPECIMEN SLIGHTLY HEMOLYZED, RESULTS MAY BE ADVERSELY AFFECTED.Performed By: #### CBC, CP, HAPT, HBS, AHCV, TREP, HIVCMB, LD #### [address] [address] Optical Laboratory Manager: Hugo Dewey MDProtein [Mass/Vol]5.8 g/dLLow6.6-8.7Summa HealthComment on above:Performed By: #### CBC, CP, HAPT, HBS, AHCV, TREP, HIVCMB, LD #### [place] [address] Optical Laboratory Manager: Hugo Dewey MDSodium [Moles/Vol]128 mmol/ZIgo166-054YkpheSumma HealthComment on above:Performed By: #### CBC, CP, HAPT, HBS, AHCV, TREP, HIVCMB, LD #### [place] [address] Optical Laboratory Manager: Hugo Dewey MDUrea nitrogen [Mass/Vol]15 mg/dLNormal6-20Summa HealthComment on above:Performed By: #### CBC, CP, HAPT, HBS, AHCV, TREP, HIVCMB, LD #### [place] [address] Optical Laboratory Manager: Hugo Dewey MDAlbumin [Mass/Vol]2.8 g/dLLow3.5-5.2MMadera Community HospitalComment on above:Performed By: #### CBC, CP, HAPT, HBS, AHCV, TREP, HIVCMB, LD #### [address] [address] Optical Laboratory Manager: Hugo Dewey MDAlbumin/Glob Ratio1.0Mfecwy5.0-2.5Summa HealthComment on above:Performed By: #### CBC, CP, HAPT, HBS, AHCV, TREP, HIVCMB, LD #### [facility] [address] [place] [address] Optical Laboratory Manager: Latrice Garcia [id number] U/PTmip96-357YsskaSumma HealthComment on above:Performed By: #### CBC, CP, HAPT, HBS, AHCV, TREP, HIVCMB, LD #### [facility] [address] [place] [address] Optical Laboratory Manager: Hugo Dewey MDALT [Catalytic activity/Vol]20 U/UIzjpnv17-23 Summa HealthComment on above:Performed By: #### CBC, CP, HAPT, HBS, AHCV, TREP, HIVCMB, LD #### [address] [address] Optical Laboratory Manager: Monica Garcia gap [Moles/Vol]18 mmol/igh9-16Summa HealthComment on above:Performed By: #### CBC, CP, HAPT, HBS, AHCV, TREP, HIVCMB, LD #### [address] [address] Optical Laboratory Manager: Hugo Dewey MDAST [Catalytic activity/Vol]40 U/MQobx16-22OawjbSumma HealthComment on above:Performed By: #### CBC, CP, HAPT, HBS, AHCV, TREP, HIVCMB, LD #### [facility] [address] [place] [address] Optical Laboratory Manager: Hugo Dewey MDBilirubin [Mass/Vol]mg/dLNormal0.00-1.20Summa HealthComment on above:Performed By: #### CBC, CP, HAPT, HBS, AHCV, TREP, HIVCMB, LD #### [facility] [employer] [address] [place] [address] Optical Laboratory Manager: CRISPIN Garciaalcium [Mass/Vol]8.1 mg/dLLow8.6-10.4Summa HealthComment on above:Performed By: #### CBC, CP, HAPT, HBS, AHCV, TREP, HIVCMB, LD #### [facility] [address] [place] [address] Optical Laboratory Manager: CRISPIN Garciahloride [Moles/Vol]102 mmol/DKegxig87-329DenuoSumma HealthComment on above:Performed By: #### CBC, CP, HAPT, HBS, AHCV, TREP, HIVCMB, LD #### [facility] [employer] [address] [place] [address] Optical Laboratory Manager: Hugo Dewey MDCO2 [Moles/Vol]11 mmol/ZMof43-06SouhySumma HealthComment on above:Performed By: #### CBC, CP, HAPT, HBS, AHCV, TREP, HIVCMB, LD #### [facility] [address] [place] [address] Optical Laboratory Manager: CRISPIN Garciareatinine [Mass/Vol]0.7 mg/dLNormal0.50-0.90 Summa HealthComment on above:Performed By: #### CBC, CP, HAPT, HBS, AHCV, TREP, HIVCMB, LD #### [facility] [employer] [address] [place] [address] Optical Laboratory Manager: Hugo Dewey MDGFR/1.73 sq M.predicted among non-blacks MDRD (S/P/Bld) [Vol rate/Area]mL/min/{1.73_m2}Normal>60Summa HealthComment on above:Result Comment: These results are not intended for use in patients <18 years of age. eGFR results are calculated without a race factor using the 2020 CKD-EPI equation. Careful clinical correlation is recommended, particularly when comparing to results calculated using previous equations. The CKD-EPI equation is less accurate in patients with extremes of muscle mass, extra-renal metabolism of creatine, excessive creatine ingestion, or following therapy that affects renal tubular secretion.Performed By: #### CBC, CP, HAPT, HBS, AHCV, TREP, HIVCMB, LD #### [address] [address] Optical Laboratory Manager: Hugo Dewey MDGlucose [Mass/Vol]167 mg/jUEmev85-94JghwzMadera Community HospitalComment on above:Performed By: #### CBC, CP, HAPT, HBS, AHCV, TREP, HIVCMB, LD #### [place] [address] Optical Laboratory Manager: HUBER Garciaotassium [Moles/Vol]4.7 mmol/LNormal3.7-5.3 Summa HealthComment on above:Performed By: #### CBC, CP, HAPT, HBS, AHCV, TREP, HIVCMB, LD #### [place] [address] Optical Laboratory Manager: Hugo Dewey MDProtein [Mass/Vol]5.1 g/dLLow6.6-8.7Summa HealthComment on above:Performed By: #### CBC, CP, HAPT, HBS, AHCV, TREP, HIVCMB, LD #### [place] [address] Optical Laboratory Manager: Hugo Dewey MDSodium [Moles/Vol]131 mmol/XIhh492-489MdcxvSumma HealthComment on above:Performed By: #### CBC, CP, HAPT, HBS, AHCV, TREP, HIVCMB, LD #### [address] [address] Optical Laboratory Manager: Hugo Dewey MDUrea nitrogen [Mass/Vol]15 mg/dLNormal6-20Summa HealthComment on above:Performed By: #### CBC, CP, HAPT, HBS, AHCV, TREP, HIVCMB, LD #### [address] [address] Optical Laboratory Manager: Hugo Dewey MDAlbumin [Mass/Vol]3.3 g/dLLow3.5-5.2Mnew[facility] hospitaly [facility] HospitalComment on above:Performed By: #### CBC, CP, HAPT, HBS, AHCV, TREP, HIVCMB, LD #### [address] [address] Optical Laboratory Manager: Hugo Dewey MDAlbumin/Glob Ratio1.4Ayubmu3.0-2.5Summa HealthComment on above:Performed By: #### CBC, CP, HAPT, HBS, AHCV, TREP, HIVCMB, LD #### [place] [address] Optical Laboratory Manager: Latrice Garcia [id number] U/HGqvy25-394EgwjsSumma HealthComment on above:Performed By: #### CBC, CP, HAPT, HBS, AHCV, TREP, HIVCMB, LD #### [address] [address] Optical Laboratory Manager: Hugo Dewey MDALT [Catalytic activity/Vol]19 U/HBlpuwi84-46 Summa HealthComment on above:Performed By: #### CBC, CP, HAPT, HBS, AHCV, TREP, HIVCMB, LD #### [address] [address] Optical Laboratory Manager: Monica Garcia gap [Moles/Vol]22 mmol/LHigh9-16Summa HealthComment on above:Performed By: #### CBC, CP, HAPT, HBS, AHCV, TREP, HIVCMB, LD #### [address] [address] [address] Optical Laboratory Manager: Hugo Dewey MDAST [Catalytic activity/Vol]32 U/SMygacb71-31 Summa HealthComment on above:Performed By: #### CBC, CP, HAPT, HBS, AHCV, TREP, HIVCMB, LD #### [address] [address] Optical Laboratory Manager: Hugo Dewey MDBilirubin [Mass/Vol]mg/dLNormal0.00-1.20Summa HealthComment on above:Performed By: #### CBC, CP, HAPT, HBS, AHCV, TREP, HIVCMB, LD #### [place] [address] Optical Laboratory Manager: CRISPIN Garciaalcium [Mass/Vol]9.0 mg/dLNormal8.6-10.4Summa HealthComment on above:Performed By: #### CBC, CP, HAPT, HBS, AHCV, TREP, HIVCMB, LD #### [address] [address] Optical Laboratory Manager: CRISPIN Garciahloride [Moles/Vol]102 mmol/HUcslhi31-767AfbyzSumma HealthComment on above:Performed By: #### CBC, CP, HAPT, HBS, AHCV, TREP, HIVCMB, LD #### [address] [address] Optical Laboratory Manager: Hugo Dewey MDCO2 [Moles/Vol]10 mmol/IKqa31-46OwapuSumma HealthComment on above:Performed By: #### CBC, CP, HAPT, HBS, AHCV, TREP, HIVCMB, LD #### [address] [address] Optical Laboratory Manager: CRISPIN Garciareatinine [Mass/Vol]0.8 mg/dLNormal0.50-0.90 Summa HealthComment on above:Performed By: #### CBC, CP, HAPT, HBS, AHCV, TREP, HIVCMB, LD #### [address] [address] Optical Laboratory Manager: Hugo Dewey MDGFR/1.73 sq M.predicted among non-blacks MDRD (S/P/Bld) [Vol rate/Area]mL/min/{1.73_m2}Normal>60Summa HealthComment on above:Result Comment: These results are not intended for use in patients <18 years of age. eGFR results are calculated without a race factor using the 2020 CKD-EPI equation. Careful clinical correlation is recommended, particularly when comparing to results calculated using previous equations. The CKD-EPI equation is less accurate in patients with extremes of muscle mass, extra-renal metabolism of creatine, excessive creatine ingestion, or following therapy that affects renal tubular secretion.Performed By: #### CBC, CP, HAPT, HBS, AHCV, TREP, HIVCMB, LD #### [place] [address] Optical Laboratory Manager: Hugo Dewey MDGlucose [Mass/Vol]101 mg/pWAywv58-95ObfajMadera Community HospitalComment on above:Performed By: #### CBC, CP, HAPT, HBS, AHCV, TREP, HIVCMB, LD #### [place] [address] Optical Laboratory Manager: HUBER Garciaotassium [Moles/Vol]4.3 mmol/LNormal3.7-5.3 Summa HealthComment on above:Performed By: #### CBC, CP, HAPT, HBS, AHCV, TREP, HIVCMB, LD #### [address] [id number] Optical Laboratory Manager: Hugo Dewey MDProtein [Mass/Vol]6.3 g/dLLow6.6-8.7Summa HealthComment on above:Performed By: #### CBC, CP, HAPT, HBS, AHCV, TREP, HIVCMB, LD #### [facility] [address] [place] [address] Optical Laboratory Manager: ROSHNI Garciaodium [Moles/Vol]134 mmol/XVrk514-580ZztxfSumma HealthComment on above:Performed By: #### CBC, CP, HAPT, HBS, AHCV, TREP, HIVCMB, LD #### [address] [address] Optical Laboratory Manager: Hugo Dewey MDUrea nitrogen [Mass/Vol]17 mg/dLNormal6-20Summa HealthComment on above:Performed By: #### CBC, CP, HAPT, HBS, AHCV, TREP, HIVCMB, LD #### [place] [address] Optical Laboratory Manager: ALTON Garciarug Scr, Abuse, Uron 01-09-2024 Cannabinoid(s),UrPositiveAbnormalNEGSumma HealthComment on above:Result Comment: Cutoff: 50 ng/mlPerformed By: #### CBC, CP, HAPT, HBS, AHCV, TREP, HIVCMB, LD #### [address] [phone] Optical Laboratory Manager: Hugo Dewey MDInterpretive InfoAssay provides rapid clinical screening only. Presumptive positive results forNoOhioHealth Dublin Methodist HospitalComment on above:Result Comment: legal purposes should be confirmed by another method. To request confirmation, please call the lab within 7 days of sample submission.Performed By: #### CBC, CP, HAPT, HBS, AHCV, TREP, HIVCMB, LD #### [address] [phone] Optical Laboratory Manager: Hugo Dewey MDAmphetamine(s),UrNegativeNormalNEGSumma HealthComment on above:Result Comment: Cutoff: 1000 ng/mL Performed By: #### CBC, CP, HAPT, HBS, AHCV, TREP, HIVCMB, LD #### [facility] [address] [place] [address] Optical Laboratory Manager: Hugo Dewey MDBarbiturate(s),UrNegativeNormalNEGSumma HealthComment on above:Result Comment: Cutoff: 200 ng/ml Performed By: #### CBC, CP, HAPT, HBS, AHCV, TREP, HIVCMB, LD #### [address] [address] Optical Laboratory Manager: Archie Garciaodiazepine(s)NegativePremier HealthComment on above:Result Comment: Cutoff: 200 ng/ml Performed By: #### CBC, CP, HAPT, HBS, AHCV, TREP, HIVCMB, LD #### [facility] [address] [place] [address] Optical Laboratory Manager: Darwin Garcia MetaboliteNegativeDupontNEGSumma HealthComment on above:Result Comment: Cutoff: 300 ng/ml Performed By: #### CBC, CP, HAPT, HBS, AHCV, TREP, HIVCMB, LD #### [address] [address] Optical Laboratory Manager: Mayda Garcia, UrineNegativeNormalNEGSumma HealthComment on above:Result Comment: Cutoff: 5 ng/mlPerformed By: #### CBC, CP, HAPT, HBS, AHCV, TREP, HIVCMB, LD #### [facility] [address] [place] [address] Optical Laboratory Manager: LANE Garciaethadone Ql (U)NegativeNormalNEGSumma HealthComment on above:Result Comment: Cutoff: 300 ng/ml Performed By: #### CBC, CP, HAPT, HBS, AHCV, TREP, HIVCMB, LD #### [facility] [address] [place] [address] Optical Laboratory Manager: Hugo Dewey MDOpiate(s), UrNegativePremier HealthComment on above:Result Comment: Cutoff: 300 ng/mlPerformed By: #### CBC, CP, HAPT, HBS, AHCV, TREP, HIVCMB, LD #### [address] [phone] Optical Laboratory Manager: Hugo Dewey MDOxycodone, UrineNegativePremier HealthComment on above:Result Comment: Cutoff: 100 ng/ml Performed By: #### CBC, CP, HAPT, HBS, AHCV, TREP, HIVCMB, LD #### [address] [phone] Optical Laboratory Manager: Jonathan Garciacyclidine, UrNegFayette County Memorial HospitalComment on above:Result Comment: Cutoff: 25 ng/mlPerformed By: #### CBC, CP, HAPT, HBS, AHCV, TREP, HIVCMB, LD #### [address] [id number] Optical Laboratory Manager: Hugo Dewey MDFetal Hemorrhage Scron 17-82-0869Ztkid Hemorrhage ScrPatient result MASSIVE HEMORRHAGE RULED OUTSalem City HospitalComment on above:Performed By: #### CBC, CP, HAPT, HBS, AHCV, TREP, HIVCMB, LD #### [address] [id number] Optical Laboratory Manager: Hugo Dewey MDFibrinogenon 85-95-1563Wvhlhqoxpi384 mg/dLHigh 203-521Summa HealthComment on above:Performed By: #### CBC, CP, HAPT, HBS, AHCV, TREP, HIVCMB, LD #### [address] [phone] Optical Laboratory Manager: Hugo Dewey MDGlucose,Whole Bloodon 08-10-5685Ejihohp [Mass/Vol]87 mg/wUZdhpun76-227TfdrsSumma HealthHIV Ag/Abon 80-79-8202QBM Ag/AbNon-ReactiveNoAshtabula County Medical CenterComment on above:Result Comment: No laboratory evidence of HIV infection. If acute HIV infection is suspected, consider testing for HIV-1 RNA.Performed By: #### CBC, CP, HAPT, HBS, AHCV, TREP, HIVCMB, LD #### [address] [phone] Optical Laboratory Manager: Hugo Dewey MDHaptoglobinon 97-10-0310Dpbkjfampot93 mg/dL Eotbvp04-194CvncvSumma HealthComment on above:Performed By: #### CBC, CP, HAPT, HBS, AHCV, TREP, HIVCMB, LD #### [address] [phone] Optical Laboratory Manager: Salinas Garcia B Surf Agon 25-32-3279Pjm B Surf Ag Non-ReactiveOhio State Health SystemComment on above:Performed By: #### CBC, CP, HAPT, HBS, AHCV, TREP, HIVCMB, LD #### [address] [phone] Optical Laboratory Manager: Salinas Garcia C Abon 13-49-9365Tvx C AbNon-ReactiveAccess Hospital DaytonComment on above:Result Comment: The hepatitis C procedure used in our laboratory is a Chemiluminescent test specific for three recombinant HCV antigens. A negative anti-HCV result indicates that the antibodies to hepatitis C virus are not present at this time. Individuals with reactive anti-HCV should be considered infected and infectious until proven otherwise. Confirmation of all equivocal or reactive results is recommended by ordering HCV RNA by PCR.Performed By: #### CBC, CP, HAPT, HBS, AHCV, TREP, HIVCMB, LD #### [facility] [address] [place] [phone] Optical Laboratory Manager: Lina Garciaate Dehydrogenaseon 57-53-9483RCK [Catalytic activity/Vol]308 U/XBjvd137-088FhkoaContra Costa Regional Medical CenterComment on above:Performed By: #### CBC, CP, HAPT, HBS, AHCV, TREP, HIVCMB, LD #### [facility] [address] [place] [phone] Optical Laboratory Manager: Lucy Garciagnesiumon 11-94-3219Entyyrncy [Mass/Vol]4.0 mg/dLHigh1.6-2.6[facility] Memorial HospitalComment on above:Performed By: #### CBC, CP, HAPT, HBS, AHCV, TREP, HIVCMB, LD #### [facility] [address] [place] [address] Optical Laboratory Manager: Peter Garcia 68-76-7508RVS Coag (PPP) [Relative time]0.9 {INR}NormalSumma HealthComment on above:Result Comment: Therapeutic Range: Moderate Anticoagulant Intensity: INR = 2.0-3.0 High Anticoagulant Intensity: INR = 2.5-3.5Performed By: #### CBC, CP, HAPT, HBS, AHCV, TREP, HIVCMB, LD #### [facility] [address] [place] [address] Optical Laboratory Manager: RASHEED Garcia Coag (PPP) [Time]12.0 iZbysbn11.7-14.9Summa HealthComment on above:Performed By: #### CBC, CP, HAPT, HBS, AHCV, TREP, HIVCMB, LD #### [facility] [address] [place] [address] Optical Laboratory Manager: HUBER Garciarotein,Tot,Noxen Uron 47-13-3602Sts Prot. Conc. 1500 mg/dLNormalSumma HealthComment on above:Result Comment: CORRECTED ON 01/08 AT 1249: PREVIOUSLY REPORTED 1500 No normal range established. CODIE CHATTERJEE NOTIFIED, CORRECTED ON 01/08 AT 1229: PREVIOUSLY REPORTED <4 No normal range established.Performed By: #### CBC, CP, HAPT, HBS, AHCV, TREP, HIVCMB, LD #### [facility] [address] [place] [address] Optical Laboratory Manager: Hugo Dewey MDTP/Cre Ratio17.48Adpv6.00-0.20Summa HealthComment on above:Result Comment: CORRECTED ON 01/08 AT 1243: PREVIOUSLY REPORTED Can not be calculatedPerformed By: #### CBC, CP, HAPT, HBS, AHCV, TREP, HIVCMB, LD #### [facility] [address] [place] [address] [phone] Optical Laboratory Manager: CRISPIN Garciareatinine [Mass/Vol]84.8 mg/jMJyuqug59.0-217.0 Summa HealthComment on above:Performed By: #### CBC, CP, HAPT, HBS, AHCV, TREP, HIVCMB, LD #### [facility] [address] [place] [address] [phone] Optical Laboratory Manager: TYESHA Garcia, Transfuseon 36-01-1182BFCJ, TransfuseUnit Number [id number] Blood Component Type RHIG Unit Division 00 Status of Unit TRANSFUSED Transfusion Status OK TO TRANSFUSENormalSumma HealthComment on above:Performed By: #### CBC, CP, HAPT, HBS, AHCV, TREP, HIVCMB, LD #### [facility] [address] [place] [address] [phone] Optical Laboratory Manager: Salazar Garcia Ab, IgGon 65-03-9697Vlgkwrn Ab, AdM326.0 IU/mLNRiverview Health InstituteComment on above:Result Comment: <10 NON REACTIVE Negative for Anti-Rubella IgG >=10 REACTIVE Positive for Anti Rubella IgG The presence of IgG antibody to Rubella virus is an indication of previous exposure either by prior infection or vaccination.Performed By: #### CBC, CP, HAPT, HBS, AHCV, TREP, HIVCMB, LD #### [facility] [address] [place] [address] Optical Laboratory Manager: ROSHNI Garciaurgical Pathology Reporton 54-21-4438Eyllnwxw Pathology Report(NOTE) Path Number: [id number] -- Diagnosis -- PLACENTA, DELIVERED: -THIRD TRIMESTER PLACENTA WITH UNREMARKABLE THREE-VESSEL CORD AND MEMBRANES. -PLACENTAL DISC WITH FOCAL INFARCTION AND PARTIALLY FRAGMENTED/TORN MATERNAL SURFACE (APPROXIMATELY 10%) AND COMPLETENESS CANNOT BE DETERMINED. Heraclio Read M.D. Electronically Signed Out 01/14/2024 Clinical Information Pre-Op Diagnosis: GEST AGE: 29 WEEKS 6 DAYS Operative Findings: PLACENTA, CORD AND MEMBRANES Operation Performed: mm Source of Specimen A: PLACENTA, CORD, AND MEMBRANES Gross Description ELISE ARAGON, PATRICIAIGNPRASHANTH Received in formalin is a placenta with attached membranes and umbilical cord. UMBILICAL CORD Length: 14.5 cm Diameter: 1.4 cm True knots: No Number of vessels: 3 Spiraling: Normal Insertion into surface: Central MEMBRANES Color: Fernandez-velazquez, focally opacified Meconium staining: No SURFACE Color: Purple-fernandez, with a normal array of surface vessels Subchorionic fibrin: Marginal and involves < 5% of the disc MATERNAL SURFACE Cotyledons: -Fragmented/torn: (Approximately 10%) and completeness cannot be determined -Focal lesions: There are areas of velazquez induration up to 1.2 cm and occupy approximately 10% of the disc Placental size: 12.0 x 12.0 x 3.0 cm Shape: Ovoid Weight: 233 grams Number of cassettes: 4cs tm Carmen Fink/mma:01/10/2024 Microscopic Description Umbilical cord: Unremarkable Membranes: Unremarkable Meconium staining: No Infarcts: Yes Intervillous thrombi: No Subchorionic fibrin: Not significantly increased Villous maturation: Appropriate Nucleated erythrocytes in villous capillaries: Not increased Other: Few microcalcifications Processing Lab: [facility] [address] [place] [address] Interpretation Performed at [address] [address] SURGICAL PATHOLOGY CONSULTATION Patient Name: ELISE ARAGON [facility] Rec: [id number] [facility] ANATOMIC PATHOLOGY [address] [place] [phone] Salem City HospitalT.pallidum Ab Screenon 01-09-2024T.pallidum Ab ScreenNon-ReactiveOhio State Health SystemComment on above:Result Comment: T. pallidum antibodies are not detected. There is no serological evidence of infection with T. pallidum (early primary syphilis cannot be excluded). Retest in 2-4 weeks if syphilis is clinically suspect.Performed By: #### CBC, CP, HAPT, HBS, AHCV, TREP, HIVCMB, LD #### [address] [address] Optical Laboratory Manager: Hugo Dewey MDType + Screenon 62-83-7820Fsxo + ScreenSample Expiration 01/12/2024,2359 Arm Band Number [id number] ABO/Rh(D) AB NEGATIVE Antibody Screen NEGATIVESalem City HospitalComment on above: Performed By: #### CBC, CP, HAPT, HBS, AHCV, TREP, HIVCMB, LD #### [address] [address] Optical Laboratory Manager: FELY Garcia CHEST PORTABLEon 82-23-8672IY CHEST PORTABLE EXAMINATION: ONE XRAY VIEW OF THE CHEST 01/09/2024 2:07 pm COMPARISON: None. HISTORY: ORDERING SYSTEM PROVIDED HISTORY: post intubation TECHNOLOGIST PROVIDED HISTORY: post intubation FINDINGS: Lines and tubes: Endotracheal tube is present which terminates approximately 3.2 cm above the level the mo. Lungs: Clear. Pleura: No effusion or pneumothorax. Cardiomediastinal silhouette: Normal contours. Bones: No acute osseous findings. Soft tissues: Normal. IMPRESSION: 1. No acute cardiopulmonary disease. 2. Endotracheal tube terminates 3.2 cm above the level the mo. Interpreted by: Hong Watts MD Signed by: Hong Watts MD 01/09/24 Final resultNormalMercy Saint Francis Memorial HospitalUS OB INCOMPLETE ANATOMYon 21-66-9628[place]ub[place] [address] Ultrasound Report Signed Patient: ELISE ARAGON MR#: [id number] : 1995 Acct:[id number] Age/Sex: 28 / F ADM Date: 12/05/23 Loc: [facility] Attending Dr: Zachery Fontana D.O. Ordering Physician: Zachery Fontana D.O. Date of Service: 12/05/23 Procedure(s): US OB incomplete anatomy Accession Number(s): [id number] cc: Zachery Fontana D.O.; Physician,Non-Staff M.Emi The [place] [address] Patient Name: ELISE ARAGON MRN: [id number] date: 1995 Sex: F Assigned Patient Location: [facility] Current Patient Location: [facility] Accession/Order Number: [id number] Exam Date: 12/05/2023 13:07 Report Date: 12/05/2023 14:08 At the request of: ZACHERY FONTANA Procedure: US OB incomplete anatomy EXAM: US OB incomplete anatomy HISTORY: SV KIDNEYS COMPARISON: 11/07/2023 TECHNIQUE: Transabdominal FINDINGS: position: Transverse Heart rate: 149 beats minute The right kidney is normal The left kidney is not definitively visualized US/US OB incomplete anatomy IMPRESSION: Nonvisualization of the left kidney Electronically authenticated by: HERACLIO GONZALEZ Date: 12/05/2023 14:08 Dictated By: Heraclio Gonzalez M.D. Signed By: 12/05/23 1410 DD/ 1408 TD/TT: Clothing Room Supervisor:NAMRATAadiologantonio, RadiologistMD - 12/05/[address] [address] Ultrasound Report Signed Patient: ELISE ARAGON MR#: [id number] : 1995 Acct:[id number] Age/Sex: 28 / F ADM Date: 12/05/23 Loc: [facility] Attending Dr: Zachery Fontana D.O. Ordering Physician: Zachery Fontana D.O. Date of Service: 12/05/23 Procedure(s): US OB incomplete anatomy Accession Number(s): [id number] cc: Zachery Fontana D.O.; Physician,Non-Staff Silverio The [place] [id number] Patient Name: ELISE ARAGON MRN: [id number] date: 1995 Sex: F Assigned Patient Location: [facility] Current Patient Location: [facility] Accession/Order Number: [id number] Exam Date: 12/05/2023 13:07 Report Date: 12/05/2023 14:08 At the request of: ZACHERY FONTANA Procedure: US OB incomplete anatomy EXAM: US OB incomplete anatomy HISTORY: SV KIDNEYS COMPARISON: 11/07/2023 TECHNIQUE: Transabdominal FINDINGS: position: Transverse Heart rate: 149 beats minute The right kidney is normal The left kidney is not definitively visualized US/US OB incomplete anatomy IMPRESSION: Nonvisualization of the left kidney Electronically authenticated by: HERACLIO GONZALEZ Date: 12/05/2023 14:08 Dictated By: Heraclio Gonzalez M.D. Signed By: 12/05/23 1410 DD/ 1408 TD/TT: Clothing Room Supervisor: ROSLIND[facility] GENERAL HOSPITALXavier HealthcareRadiology Study observation (narrative)NOM HealthcareUS OB INCOMPLETE ANATOMYOrdered By: Radiologist Radiology on 27-29-8497DOJT Healthcare Work Phone: aFP, SERUM, OPEN SPINA BIFIDAon 12-46-7051LIX MOMSee interpretation..[facility] HealthcareAFP VALUE98.7 ng/mL.[facility]OMS HealthcareCOMMENT: Comment.NOMS HealthcareComment on above:Hanh Thomas, Ph.D., [facility] Director References: Available Upon Request. Multiples Of Median Cutoffs For AFP Elevations Cutler 2.5 Black 2.8 IDD 2.0 Twins 4.5 Abbreviation Definitions IDD - Insulin Dep Diabetes OSBR - Open Spina Bifida Risk For further inquiries contact [facility] at [phone]. This test was developed and its performance characteristics determined by [facility]. It has not been cleared or approved by the Food and Drug Administration. Performed at: [facility] [address] [place], [place] [id number] Optical Laboratory Manager: Duy Stack [facility], Phone: [phone] GEST. AGE ON COLLECTION DATE20.9. weeksNOMS HealthcareGESTAT. AGE BASED ONAs provided.NOMS HealthcareComment on above:Recalculations are not recommended when gestational dating by LMP and ultrasound are within 10 days. INSULIN DEP DIABETESNo.[facility] HealthcareINTERPRETATIONComment.[facility] Comment on above:Interpretation: An interpretation CANNOT be provided for this patient because necessary patient information was not provided (one or more of: gestational age, weight, or patient age). Please call us with new clinical information. Interpretation: Screen Negative This result is screen negative for OSB. The AFP MoM calculated is based on the gestational age provided. MS-AFP can identify up to 80% of open neural tube defects. Closed neural tube defects and some open defects may not be detected by this test. This test does not screen for Down Syndrome or Trisomy 18. If screening for Down Syndrome or Trisomy 18 is desired, contact [facility] to discuss available options. The [place] [employer] recommends amniocentesis be offered to women age 35 and older. This is a corrected report. The previously reported result(s) were: Test Result Date First Reported Updates reported on: 11/13/2023 12:22 PM AFP MOM VALUE 11/12/2023 4:06 PM See interpretation. INTERP 11/12/2023 4:06 PM Interpretation: An interpretation CANNOT be provided for this patient because necessary patient information was not provided (one or more of: gestational age, weight, or patient age). Please call us with new clinical information. OSBR RISK 1 IN 11/12/2023 4:06 PM See interpretation. TEST RESULTS: SCREEN 11/12/2023 4:06 PM See interpretation. --- 11/13/23 1311 --- Interpretation previously reported as: Comment Interpretation: An interpretation CANNOT be provided for this patient because necessary patient information was not provided (one or more of: gestational age, weight, or patient age). Please call us with new clinical information. MATERNAL AGE AT EDD29.7. yrNOMS HealthcareMULTIPLE GESTATIONComment.NOMS HealthcareComment on above:Not provided.OSBR RISK 1 INSee interpretation..[facility]S HealthcareRACECaucasian.[facility] HealthcareRESULTSReport.NOMS HealthcareTEST RESULTS:See interpretation..[facility]S HealthcareWEIGHTComment. lbsNOPA Healthcare Comment on above:Not provided.Specimen Comment: SEE END OF THIS REPORT FOR CORRECTED REPORT COMMENTS N N [phone] N Y N N N N CLINISYNCGolden Valley Memorial HospitalNo Panel InformationOrdered By: Radiologist Radiology on 88-74-7805RCZOGolden Valley Memorial Hospital Work Phone: No Panel Informationon 50-99-3508Qssldxcoe Study observation (narrative)[facility] HealthcareUS OB ANATOMYon 99-57-5151UtpB[place] [address] Ultrasound Report Signed Patient: ELISE ARAGON MR#: [id number] : 1995 Acct:[id number] Age/Sex: 28 / F ADM Date: 11/07/23 [facility]: Zachery Fontana D.O. Ordering Physician: Zachery Fontana D.O. Date of Service: 11/07/23 Procedure(s): US OB anatomy Accession Number(s): [id number] cc: Zachery Fontana D.O.; Physician,Non-Staff MEsvin The [address] [address] Patient Name: ELISE ARAGON MRN: [id number] date: 1995 Sex: F Assigned Patient Location: [facility] Current Patient Location: [facility] Accession/Order Number: [id number] Exam Date: 11/07/2023 10:39 Report Date: 11/07/2023 12:01 At the request of: ZACHERY FONTANA Procedure: US OB anatomy EXAMINATION: US OB anatomy, US OB cervical length HISTORY: ANATOMY COMPARISON: No relevant comparison available. TECHNIQUE: Transabdominal sonographic examination was performed for obstetrical and evaluation. FINDINGS: Number: 1 Heart Rate: 144.0 bpm H.B. /min Amniotic Fluid Volume: Subjectively normal position: Variable Placental Location: ANTERIOR, placental edge 5.2 cm from the internal os Cervix Length: 4.5 cm , closed Normal anatomy: Lateral ventricles, cerebellum, posterior fossa, nose, lips, orbits, four-chamber heart, RVOT, LVOT, diaphragm, stomach, abdominal cord insertion, bladder, umbilical arteries, three-vessel cord, spine, extremities Suboptimal visualization: Kidneys BIOMETRY: BPD: 4.8 cm 20 weeks 3 days , 34% HC: 18.2 cm 20 weeks 4 days, 29% AC: 15.5 cm 20 weeks 5 days, 37% FL: 3.4 cm 20 weeks 4 days , 30% EFW:365.2 grams; 13 ounces, 32% FL/AC: 21.7 FL/BPD: 70.2 HC/AC: 1.2 GESTATIONAL AGE: Age by EDC: 20 weeks 6 days Age by current US: 20 weeks 4 days ALINA by current US: 03/22/2024 ALINA by EDC: 03/20/2024 US/US OB anatomy IMPRESSION: Suboptimal visualization of the kidneys, otherwise normal anatomy scan *Reference: [employer] Practice Guideline for the performance of Obstetric Ultrasound Examinations, July 08, 2007. Electronically authenticated by: HERACLIO GONZALEZ Date: 11/07/2023 12:01 Dictated By: Heraclio Gonzalez M.D. Signed By: 11/07/234 DD/ 00 TD/TT: Clothing Room Supervisor:TBHRadiology, Radiologist, - 11/07/2023 [place] [address] Ultrasound Report Signed Patient: ELISE ARAGON MR#: [id number] : 1995 Acct:[id number] Age/Sex: 28 / F ADM Date: 11/07/23 Loc: [facility] Attending Dr: Zachery Fontana D.O. Ordering Physician: Zachery Fontana D.O. Date of Service: 11/07/23 Procedure(s): US OB anatomy Accession Number(s): [id number] cc: Zachery Fontana D.O.; Physician,Non-Staff M.DDavid [place] [id number] Patient Name: ELISE ARAGON MRN: [id number] date: 1995 Sex: F Assigned Patient Location: [facility] Current Patient Location: [facility] Accession/Order Number: [id number] Exam Date: 11/07/2023 10:39 Report Date: 11/07/2023 12:01 At the request of: ZACHERY FONTANA Procedure: US OB anatomy EXAMINATION: US OB anatomy, US OB cervical length HISTORY: ANATOMY COMPARISON: No relevant comparison available. TECHNIQUE: Transabdominal sonographic examination was performed for obstetrical and evaluation. FINDINGS: Number: 1 Heart Rate: 144.0 bpm H.B. /min Amniotic Fluid Volume: Subjectively normal position: Variable Placental Location: ANTERIOR, placental edge 5.2 cm from the internal os Cervix Length: 4.5 cm , closed Normal anatomy: Lateral ventricles, cerebellum, posterior fossa, nose, lips, orbits, four-chamber heart, RVOT, LVOT, diaphragm, stomach, abdominal cord insertion, bladder, umbilical arteries, three-vessel cord, spine, extremities Suboptimal visualization: Kidneys BIOMETRY: BPD: 4.8 cm 20 weeks 3 days , 34% HC: 18.2 cm 20 weeks 4 days, 29% AC: 15.5 cm 20 weeks 5 days, 37% FL: 3.4 cm 20 weeks 4 days , 30% EFW:365.2 grams; 13 ounces, 32% FL/AC: 21.7 FL/BPD: 70.2 HC/AC: 1.2 GESTATIONAL AGE: Age by EDC: 20 weeks 6 days Age by current US: 20 weeks 4 days ALINA by current US: 03/22/2024 ALINA by EDC: 03/20/2024 US/US OB anatomy IMPRESSION: Suboptimal visualization of the kidneys, otherwise normal anatomy scan *Reference: [facility] Practice Guideline for the performance of Obstetric Ultrasound Examinations, July 08, 2007. Electronically authenticated by: HERACLIO GONZALEZ Date: 11/07/2023 12:01 Dictated By: Heraclio Gonzalez M.D. Signed By: 11/07/23 1204 DD/ 1201 TD/TT: Clothing Room Supervisor: KAREEM Green OB CERVICAL LENGTHon [id number] [address] Ultrasound Report Signed Patient: ELISE ARAGON MR#: [id number] : 1995 Acct:[id number] Age/Sex: 28 / F ADM Date: 11/07/23 Loc: [facility] Attending Dr: Zachery Fontana D.O. Ordering Physician: Zachery Fontana D.O. Date of Service: 11/07/23 Procedure(s): US OB cervical length Accession Number(s): [id number] cc: Zachery Fontana D.O.; Physician,Non-Staff [place] [address] Patient Name: ELISE ARAGON MRN: [id number] date: 1995 Sex: F Assigned Patient Location: [facility] Current Patient Location: [facility] Accession/Order Number: [id number] Exam Date: 11/07/2023 10:39 Report Date: 11/07/2023 12:01 At the request of: ZACHERY FONTANA Procedure: US OB cervical length EXAMINATION: US OB anatomy, US OB cervical length HISTORY: ANATOMY COMPARISON: No relevant comparison available. TECHNIQUE: Transabdominal sonographic examination was performed for obstetrical and evaluation. FINDINGS: Number: 1 Heart Rate: 144.0 bpm H.B. /min Amniotic Fluid Volume: Subjectively normal position: Variable Placental Location: ANTERIOR, placental edge 5.2 cm from the internal os Cervix Length: 4.5 cm , closed Normal anatomy: Lateral ventricles, cerebellum, posterior fossa, nose, lips, orbits, four-chamber heart, RVOT, LVOT, diaphragm, stomach, abdominal cord insertion, bladder, umbilical arteries, three-vessel cord, spine, extremities Suboptimal visualization: Kidneys BIOMETRY: BPD: 4.8 cm 20 weeks 3 days , 34% HC: 18.2 cm 20 weeks 4 days, 29% AC: 15.5 cm 20 weeks 5 days, 37% FL: 3.4 cm 20 weeks 4 days , 30% EFW:365.2 grams; 13 ounces, 32% FL/AC: 21.7 FL/BPD: 70.2 HC/AC: 1.2 GESTATIONAL AGE: Age by EDC: 20 weeks 6 days Age by current US: 20 weeks 4 days ALINA by current US: 03/22/2024 ALINA by EDC: 03/20/2024 US/US OB cervical length IMPRESSION: Suboptimal visualization of the kidneys, otherwise normal anatomy scan *Reference: [facility] Practice Guideline for the performance of Obstetric Ultrasound Examinations, July 08, 2007. Electronically authenticated by: HERACLIO GONZALEZ Date: 11/07/2023 12:01 Dictated By: Heraclio Gonzalez M.D. Signed By: 11/07/23 1204 DD/ 1201 TD/TT: Clothing Room Supervisor:TBHRadiology, Radiologist, MD - 11/07/2023 [place] [address] Ultrasound Report Signed Patient: ELISE ARAGON MR#: [id number] : 1995 Acct:[id number] Age/Sex: 28 / F ADM Date: 11/07/23 Loc: NOMS Attending Dr: Zachery Fontana D.O. Ordering Physician: Zachery Fontana D.O. Date of Service: 11/07/23 Procedure(s): US OB cervical length Accession Number(s): [id number] cc: Zachery Fontana D.O.; Physician,Non-Staff [place] [facility] [address] [address] Patient Name: LEISE ARAGON MRN: [id number] date: 1995 Sex: F Assigned Patient Location: [facility] Current Patient Location: [facility] Accession/Order Number: [id number] Exam Date: 11/07/2023 10:39 Report Date: 11/07/2023 12:01 At the request of: ZACHERY MARIZOL Procedure: US OB cervical length EXAMINATION: US OB anatomy, US OB cervical length HISTORY: ANATOMY COMPARISON: No relevant comparison available. TECHNIQUE: Transabdominal sonographic examination was performed for obstetrical and evaluation. FINDINGS: Number: 1 Heart Rate: 144.0 bpm H.B. /min Amniotic Fluid Volume: Subjectively normal position: Variable Placental Location: ANTERIOR, placental edge 5.2 cm from the internal os Cervix Length: 4.5 cm , closed Normal anatomy: Lateral ventricles, cerebellum, posterior fossa, nose, lips, orbits, four-chamber heart, RVOT, LVOT, diaphragm, stomach, abdominal cord insertion, bladder, umbilical arteries, three-vessel cord, spine, extremities Suboptimal visualization: Kidneys BIOMETRY: BPD: 4.8 cm 20 weeks 3 days , 34% HC: 18.2 cm 20 weeks 4 days, 29% AC: 15.5 cm 20 weeks 5 days, 37% FL: 3.4 cm 20 weeks 4 days , 30% EFW:365.2 grams; 13 ounces, 32% FL/AC: 21.7 FL/BPD: 70.2 HC/AC: 1.2 GESTATIONAL AGE: Age by EDC: 20 weeks 6 days Age by current US: 20 weeks 4 days ALINA by current US: 03/22/2024 ALINA by EDC: 03/20/2024 US/US OB cervical length IMPRESSION: Suboptimal visualization of the kidneys, otherwise normal anatomy scan *Reference: [facility]UM Practice Guideline for the performance of Obstetric Ultrasound Examinations, July 08, 2007. Electronically authenticated by: HERACLIO GONZALEZ Date: 11/07/2023 12:01 Dictated By: Heraclio Gonzalez M.D. Signed By: 11/07/23 1204 DD/ 1201 TD/TT: Clothing Room Supervisor: KAREEM Hendrix17-[place] PROGESTERONE, LC/MSon [id number]-[place] Progesterone LCMS67 ng/dLNoUC Medical CenterComment on above:Result Comment: Adult Female Follicular 15 - 70 Luteal 35 - 290Performed By: #### CBC #### [facility] [address] [place] [address] Ricardo KarenFREE TESTOSTERONEon 16-60-7298Rocr Testosterone(Direct)1.9 pg/mL Normal0.0-4.2The [facility] CenterComment on above:Performed By: #### FRETEST #### [facility] [address] [place] [address] Ricardo CruzenINSULINon 39-78-2028Dvuqovq2.6 uIU/mLNormal2.6-24.9The [facility] CenterComment on above:Performed By: #### CBC #### [facility] [address] [place] [address] Ricardo CruzenDHEA-SULFATEon 75-54-0275HVFO-Zdwdkam168.8 ug/nHUmnwhd40.8-378.0The [facility] CenterComment on above:Performed By: #### DHEASUL #### [facility] [address] [place] [address] Ricardo CruzenFSHon 49-85-7728GIN0.0 mIU/mLNormalThe [facility] CenterComment on above:Result Comment: Adult Female: Follicular phase 3.5 - 12.5 Ovulation phase 4.7 - 21.5 Luteal phase 1.7 - 7.7 Postmenopausal 25.8 - 134.8Performed By: #### LBCFSH #### [facility] [address] [place] [address] Ricardo CruzenPROLACTINon 34-13-3411Uolgoebqn41.1 ng/mLNormal4.8-23.3The [facility] CenterComment on above:Performed By: #### PROLAC #### [facility] [address] [place] [address] Ricardo CruzenCBC AUTO DIFFon 71-95-5772Rmvyewqku (Bld) [#/Vol]0.1 103/ulNormal 0.0-0.1The [facility] CenterComment on above:Performed By: #### CBC #### [facility] [address] [place] [address] Ricardo KarenBasophils/100 WBC (Bld)0.9 %Normal0.2-2.0The [facility] Comment on above:Performed By: #### CBC #### [facility] [address] [address] Ricardo KarenEosinophils (Bld) [#/Vol]0.2 103/ulNormal0.0-0.7The [facility] CenterComment on above:Performed By: #### CBC #### [facility] [address] [place] [address] Ricardo KarenEosinophils/100 WBC (Bld)3.9 %Normal0.9-7.0The [facility] Comment on above:Performed By: #### CBC #### [facility] [address] [place] [address] Ricardo KarenErythrocyte distribution width (RBC) [Ratio]13.0 %Dteswh44.0-15.0The [facility] Centerment on above:Performed By: #### CBC #### [facility] [address] [place] [address] Ricardo KarenHematocrit (Bld) [Volume fraction]44.0 %Simceo59.0-48.0The [facility] CenterComment on above:Performed By: #### CBC #### [facility] [address] [place] [address] Ricardo KarenHemoglobin (Bld) [Mass/Vol]14.6 g/tILwyrnr25.0-16.0The [facility] Centerment on above:Performed By: #### CBC #### [facility] [address] [place] [address] Ricardo KarenIG #0.01 10e3/ulNormal0.00-0.03The [facility] Centerment on above:Performed By: #### CBC #### [facility] [address] [place] [address] Ricardo KarenIG %0.2 %Normal0.0-0.5The [facility] CenterComment on above: Performed By: #### CBC #### [facility] [address] [place] [address] Ricardo KarenLymphocytes (Bld) [#/Vol]1.7 103/ulNormal1.2-3.8ThCleveland Clinic Euclid HospitalComment on above:Performed By: #### CBC #### [facility] [address] [place] [address] Ricardo KarenLymphocytes/100 WBC (Bld)29.0 %Chdgxm96.5-60.0[facility] Comment on above:Performed By: #### CBC #### [facility] [address] [place] [address] Ricardo KarenMANUAL DIFF REQNONormalThe [facility] CenterComment on above: Performed By: #### CBC #### [facility] [address] [place] [address] Ricardo KarenMCH (RBC) [Entitic mass]30.0 ymHrezml06.7-34.0[facility] Comment on above:Performed By: #### CBC #### [facility] [address] [place] [address] Ricardo KarenMCHC (RBC) [Mass/Vol]33.2 g/uOJeilqf84.9-35.2[facility] Comment on above:Performed By: #### CBC #### [facility] [address] [place] [address] Ricardo KarenMCV (RBC) [Entitic vol]90.5 zACjvquz25.0-99.0[facility] Comment on above:Performed By: #### CBC #### [facility] [address] [place] [address] Ricardo KarenMonocytes (Bld) [#/Vol]0.3 103/ulNormal0.3-0.8ThCleveland Clinic Euclid Hospital Comment on above:Performed By: #### CBC #### [facility] [address] [place] [address] Ricardo KarenMonocytes/100 WBC (Bld)5.5 %Normal1.7-12.0[facility] Comment on above:Performed By: #### CBC #### [facility] [address] [place] [address] Ricardo KarenNeutrophils (Bld) [#/Vol]3.4 103/ulNormal1.4-6.5ThCleveland Clinic Euclid HospitalComment on above:Performed By: #### CBC #### [facility] [address] [place] [address] Ricardo KarenNeutrophils/100 WBC (Bld)60.5 %Zxkndx28.0-75.0[facility] Comment on above:Performed By: #### CBC #### [facility] [address] [place] [address] Ricardo KarenPlatelet mean volume (Bld) [Entitic vol]10.2 fLNormal9.5-13.5ThCleveland Clinic Euclid HospitalComment on above:Performed By: #### CBC #### [facility] [address] [place] [address] Ricardo KarenPlatelets (Bld) [#/Vol]282 103/abQapwka107-843TluZanesville City Hospital Comment on above:Performed By: #### CBC #### [facility] [address] [place] [address] Ricardo KarenRBC (Bld) [#/Vol]4.86 106/ulNormal4.20-5.40[facility] Comment on above:Performed By: #### CBC #### [facility] [address] [place] [address] Ricardo KarenWBC (Bld) [#/Vol]5.7 103/ulNormal4.0-11.0[facility] Comment on above:Performed By: #### CBC #### [facility] [address] [place] [address] Ricardo KarenGLYCOHEMOGLOBIN A1Con 55-28-6215Pldgosx [Mass/Vol]105 mg/dLNoalThCleveland Clinic Euclid HospitalComment on above:Performed By: #### A1C #### [facility] [address] [place] [address] Ricardo RymidOvW2m (Bld) [Mass fraction]5.3 %Normal<=6.0[facility] Comment on above:Performed By: #### A1C #### [facility] [address] [address] Ricardo KarenLIPID PROFILEon 86-70-3002KSMA-HDL RATIO NORMSLakeHealth TriPoint Medical CenterComment on above:Result Comment: 3.3 - 4.4 LOW RISK 4.4 - 7.1 AVERAGE RISK 7.1 - 11.0 MODERATE RISK >11.0 HIGH RISKPerformed By: #### CMP, TSH, LIPID #### [facility] [address] [address] Ricardo KarenCholesterol [Mass/Vol]174 mg/dLNormal<=200[facility] Comment on above:Performed By: #### CMP, TSH, LIPID #### [facility] [address] [place] [address] Ricardo KarenCholesterol in HDL [Mass/Vol]> or = 60 mg/dl - LOW CARDIOVASCULAR RISK <40 mg/dl - HIGH CARDIOVASCULAR RISKMercy Health Defiance HospitalComment on above:Performed By: #### CMP, TSH, LIPID #### [facility] [address] [place] [address] Ricardo KarenCholesterol in HDL [Mass/Vol]76 mg/dLMercy Health Defiance Hospital Comment on above:Performed By: #### CMP, TSH, LIPID #### [facility] [address] [place] [address] Ricardo KarenCholesterol in LDL [Mass/Vol]90.4 mg/dLMercy Health Defiance Hospital Comment on above:Performed By: #### CMP, TSH, LIPID #### [facility] [address] [place], [place] [address] Ricardo KarenCholesterol in LDL [Mass/Vol]SEE BELOWMercy Health Defiance Hospital Comment on above:Result Comment: <100 mg/dl OPTIMAL 100 - 129 mg/dl NEAR OR ABOVE OPTIMAL 130 - 159 mg/dl BORDERLINE HIGH 160 - 189 mg/dl HIGH >190 mg/dl VERY HIGHPerformed By: #### CMP, TSH, LIPID #### [facility] [address] [place], [place] [address] Ricardo KarenCholesterol.total/Cholesterol in HDL [Mass ratio]2.3 {ratio}Normal The [facility] CenterComment on above:Performed By: #### CMP, TSH, LIPID #### [facility] [address] [id number] Ricardo KarenTriglyceride [Mass/Vol]38 mg/dLNormal<=150The [facility] Comment on above:Performed By: #### CMP, TSH, LIPID #### [facility] [address] [id number] Ricardo KarenVLDL CALC7.6 mg/dLNormalThe [facility] CenterComment on above: Performed By: #### CMP, TSH, LIPID #### [facility] [address] [id number] Ricardo KarenPROF 14(COMP METB)on 51-43-6351Uwghgys [Mass/Vol]4.6 g/dLNormal 3.5-5.0The [facility] CenterComment on above:Performed By: #### CMP, TSH, LIPID #### [facility] [address] [address] Ricardo KarenAlbumin/Globulin [Mass ratio]1.3 {ratio}NormalZanesville City Hospital Comment on above:Performed By: #### CMP, TSH, LIPID #### [facility] [address] [id number] Ricardo KarenALP [Catalytic activity/Vol]56 U/MUooubj62-133Yuk [facility] Comment on above:Performed By: #### CMP, TSH, LIPID #### [facility] [address] [address] Ricardo KarenALT [Catalytic activity/Vol]15 U/LNormal9-52The [facility] Comment on above:Performed By: #### CMP, TSH, LIPID #### [facility] [address] [address] Ricardo KarenAnion gap [Moles/Vol]11.8 mmol/LNormalThe [facility] CenterComment on above:Performed By: #### CMP, TSH, LIPID #### [facility] [address] [id number] Ricardo KarenAST [Catalytic activity/Vol]13 U/LCritically drg65-52Fnr [facility] CenterComment on above:Performed By: #### CMP, TSH, LIPID #### [facility] [address] [address] Ricardo KarenBilirubin Ql (U)0.3 mg/dLNormal0.2-1.3The [facility] CenterComment on above:Performed By: #### CMP, TSH, LIPID #### [facility] [address] [place] [address] Ricardo KarenCalcium [Mass/Vol]9.4 mg/dLNormal8.4-10.2The [facility] Comment on above:Performed By: #### CMP, TSH, LIPID #### [facility] [address] [place] [address] Ricardo KarenChloride [Moles/Vol]101 mmol/WZnzvne23-419Qcq [facility] Comment on above:Performed By: #### CMP, TSH, LIPID #### [facility] [address] [place] [address] Ricardo KarenCO2 [Moles/Vol]29.2 mmol/NHucqke70.0-30.0The [facility] Comment on above:Performed By: #### CMP, TSH, LIPID #### [facility] [address] [place] [address] Ricardo KarenCreatinine [Mass/Vol]0.66 mg/dLNormal0.52-1.04[facility] Comment on above:Performed By: #### CMP, TSH, LIPID #### [facility] [address] [place] [address] Ricardo KarenEGFR-AF YEMENI>60Normal>=60The [facility] CenterComment on above: Performed By: #### CMP, TSH, LIPID #### [facility] [address] [place] [address] Ricardo KarenEGFR-NON AF YEMENI>60Normal>=60The [facility] CenterComment on above:Performed By: #### CMP, TSH, LIPID #### [facility] [address] [place] [address] Ricardo KarenGlobulin (S) [Mass/Vol]3.5 g/dLNormToledo HospitalComment on above:Performed By: #### CMP, TSH, LIPID #### [facility] [address] [place] [address] Ricardo KarenGlucose [Mass/Vol]88 mg/nYDyzmeh02-292Zbn [facility] CenterComment on above:Performed By: #### CMP, TSH, LIPID #### [facility] [address] [place] [address] Ricardo KarenPotassium [Moles/Vol]4.0 mmol/LNormal3.4-5.0The [facility] Comment on above:Performed By: #### CMP, TSH, LIPID #### [facility] [address] [place] [address] Ricardo KarenProtein [Mass/Vol]8.1 g/dLNormal6.1-8.2The [facility] CenterComment on above:Performed By: #### CMP, TSH, LIPID #### [facility] [address] [place] [address] Ricardo KarenSodium [Moles/Vol]138 mmol/WXaejpm341-644Rhc [facility] Comment on above:Performed By: #### CMP, TSH, LIPID #### [facility] [address] [place] [address] Ricardo KarenUrea nitrogen [Mass/Vol]13.0 mg/dLNormal7.0-17.0The [facility] CenterComment on above:Performed By: #### CMP, TSH, LIPID #### [facility] [address] [place] [address] Ricardo KarenUrea nitrogen/Creatinine [Mass ratio]19.7 mg/mgNoUC Medical CenterComment on above:Performed By: #### CMP, TSH, LIPID #### [facility] [address] [place] [address] Ricardo KarenTSHon 21-05-9751TRB Qn0.572 uIU/mLNormal0.470-4.680The [facility] CenterComment on above:Performed By: #### CMP, TSH, LIPID #### [facility] [address] [address] Ricardo CruzenTSH QnSEE BELOWMercy Health Defiance HospitalComment on above:Result Comment: <0.34 UIU/ml HYPERTHYROID 0.34-5.60 UIU/ml EUTHYROID >5.60 UIU/ml HYPOTHYROIDPerformed By: #### CMP, TSH, LIPID #### [facility] [address] [place] [address] Ricardo KarenPAP ACOG PANEL 3: 21 to 29on 60-08-7544Qkx Gdln ACOG Mmbwipn19-96 NormalZanesville City HospitalComment on above:Performed By: #### [id number] #### [facility] [address] [place] [address] Ricardo KarenChlamydia, Nuc. Acid AmpNegativeNormalNegativeZanesville City Hospital Comment on above:Result Comment: Performed at: =GPerformed By: #### [id number] #### [facility] [address] [place] [address] Ricardo KarenDIAGNOSIS:CommentMercy Health Defiance HospitalCombeaumont hospital on above:Result Comment: NEGATIVE FOR INTRAEPITHELIAL LESION OR MALIGNANCY. THIS SPECIMEN WAS RESCREENED PART OF OUR CERAMIC DESIGN ENGINEER PROGRAM. Performed at: WBPerformed By: #### [id number] #### [facility] [address] [place] [address] Ricardo KarenGonococcus, Nuc. Acid AmpNegativeNormalNegativeZanesville City Hospital Comment on above:Result Comment: Performed at: =GPerformed By: #### [id number] #### [facility] [address] [place] [address] Ricardo KarenMethodology:CommentMercy Health Defiance HospitalCombeaumont hospital on above: Result Comment: This liquid based ThinPrep(R) pap test was screened with the use of an image guided system. Performed at: WBPerformed By: #### [id number] #### [facility] [address] [place] [address] Ricardo KarenNote:CommentMercy Health Defiance HospitalComment on above:Result Comment: The Pap smear is a screening test designed to aid in the detection of premalignant and malignant conditions of the uterine cervix. It is not a diagnostic procedure and should not be used as the sole means of detecting cervical cancer. Both false-positive and false-negative reports do occur. . Performed at: WBPerformed By: #### [id number] #### [facility] [address] [place] [address] Ricardo KarenPerformed by:[facility] on above: Result Comment: Yanelis Blankenship, Internet Sales Consultant (ASCP) Performed at: Performed By: #### [id number] #### [facility] [address] [place] [address] Ricardo KarenQC reviewed by:[facility] on above: Result Comment: Lucia Bautista Internet Sales Consultant (ASCP) Performed at: [facility] Centerformed By: #### [id number] #### [facility] [address] [place] [address] Ricardo KarenReflex Criteria:[facility] on above: Result Comment: The HPV DNA reflex criteria were not met with this specimen result therefore, no HPV testing was performed. . Performed at: WBPerformed By: #### [id number] #### [facility] [address] [place] [address] Ricardo KarenSpecimen adequacy:[facility] on above:Result Comment: Satisfactory for evaluation. Endocervical and/or squamous metaplastic cells (endocervical component) are present. Performed at: WBPerformed By: #### [id number] #### [facility] [address] [place] [address] Ricardo Alpa..NormalThe [facility] on above:Result Comment: Performed at: Performed By: #### [id number] #### [facility] [address] [place] [address] Ricardo Alpa Encounters Encounter DateEncounter TypeCare ProviderFacilityStart: 11-26-2024 End: 81-34-1430Qiet/qhp telephone evaluation 5-10 minCorey Marizol DO Work Phone: noms BCP OBComment on above: anxiety; depression (CMS/HCC)Start: 02-21-2024 End: 19-82-6135lghnoujnqtBUFM [facility] Centertart: 02-14-2024 End: 13-80-9765ppiflyessnGHUU [facility] Centertart: 02-07-2024 End: 28-91-2696llgnqqxqfeFGWV [facility] Centertart: 01-31-2024 End: 16-24-7131ftbzuiwodpKWGVSouthwest General Health Centertart: 01-24-2024 End: 45-75-2649mzeyaixbfmXMGWSouthwest General Health Centertart: 01-17-2024 End: 12-43-3891vkgssuxxkmSSGRSouthwest General Health Centertart: 01-09-2024 End: 44-35-6350Yebokmvova and management of inpatientNONPremier Healthtart: 01-02-2024 End: 87-38-5628jycxwexbngHZDBX FAZIONot AvailableStart: 12-05-2023 End: 40-63-0135eviaeknibaXMV RAMEYNot AvailableStart: 12-05-2023 End: 11-10-0873Qtzqyebkv Result EncounterCorey Marizol DO Work Phone: noms External Department UnsolicitedStart: 12-05-2023 End: 18-20-4889Chxcbfjxp Result EncounterCorey Marizol DO Work Phone: noms External Department UnsolicitedStart: 11-07-2023 End: 53-76-2574Gqdqoonru Result EncounterCorey Marizol DO Work Phone: noms External Department UnsolicitedStart: 11-07-2023 End: 29-43-6285Emzdoomjv Result EncounterCorey Marizol DO Work Phone: [facility] External Department UnsolicitedStart: 11-07-2023 End: 01-31-9355dixxkwzenrAXZGD FAZIONot AvailableStart: 10-10-2023 End: 31-22-9400uhiqkjmprkHIU RAMEYNot AvailableStart: 09-12-2023 End: 95-92-5519uhbhiuchdoTOWFW FAZIONot AvailableStart: 08-23-2023 End: 29-26-1838kbfedueykrXNLDF FAZIONot AvailableStart: 07-26-2019 End: 74-96-6032Eiqzxnq encounter procedureANDREA MOOREFacility:M0Zajec: 06-02-2019 End: 79-94-3725Vaqalyb encounter procedureANDREA NADINEFacility:H1 Procedures DateProcedureProcedure DetailPerforming ClinicianStart: 10-83-1523TY OB INCOMPLETE ANATOMYCorey Marizol DO Work Phone: Start: 78-96-3419UUG, SERUM, OPEN SPINA BIFIDACorey Marizol DO Work Phone: Start: 43-06-1737CN OB ANATOMYCorey Marizol DO Work Phone: Start: 02-39-6062XV OB CERVICAL LENGTHCorey Marizol DO Work Phone: Payers DatePayer CategoryPayerPolicy [id number] [id number] [id number] .16.840.1.926742.3.57[id number] 2.16840.1.292413.3.57[id number] 2.16.840.1.177629.3.57[id number] 2.16840.1.615091.3.57[id number] 2.16840.1.789010.3.57[id number] 2.840.1.064032.3.57[id number] 2.840.1.850908.3.57[id number] 2.0.1.935605.3.57[id number] 2.840.1.459161.3.57[id number] 2.840.1.043866.3.57[id number] 2.840.1.580158.3.57[id number] 2.840.1.375475.3.57[id number] 2.840.1.799104.3.57[id number] 2.840.1.489497.3.57[id number] 2.840.1.957842.3.57[id number] Social History DateTypeDetailFacilityTobacco smoking status NHISTobacco smoking consumption unknownNOPA HealthcareStart: 44-06-4840Aen assigned at birthFeW[facility] HealthcareStart: 19-09-5460Stvimf identityIdentifies as female gender (finding) [facility] HealthcareStart: 50-79-2302Wsjqdb orientationHeterosexual (finding)[facility] HealthcareStart: 07-95-2004ZxjOufbqwLNFY Healthcare Goals DatePatient GoalDesired Activity/StatePersonal health goal History of Present illness Narrative 11-26-2024 Note Date & KexxWhqeXjotrxvd70-53-3921 History of Present illness Narrative* Alpa Bentley, MEDICAL REPRESENTATIVE - 11/26/2024 8:00 AM EST Reason for Appointment: Patient ID: Elise Aragon is a 29 y.o. female who presents for Telehealth and depression Patient presents today via telephone call for a telehealth appointment. Patients Phone #: [phone] (mobile) Current Medications: has a current medication list which includes the following prescription(s): metformin xr and afnnkznh-fmo-rr-fa. Medical History: Active Ambulatory Problems Diagnosis Date Noted No Active Ambulatory Problems Resolved Ambulatory Problems Diagnosis Date Noted No Resolved Ambulatory Problems No Additional Past Medical History No family history on file. Social History Tobacco Use Smoking status: Not on file Smokeless tobacco: Not on file Substance Use Topics Alcohol use: Not on file Drug use: Not on file Past Surgical History: Procedure Laterality Date APPENDECTOMY 2010 No Known Allergies Vitals: Estimated body mass index is 31.02 kg/m as calculated from the following: Height as of 01/17/23: 5' 5 . Weight as of 01/02/24: 186 lb 6.4 oz. BP: No LMP recorded. Assessment/Plan Encounter Diagnoses Name Primary? anxiety depression (CMS/HCC) Pt delivered in [place] last year d/t seizures, severe preeclampsia. Pt states now she is having more down days than positive up days. Pt states no suicidal and homicidal ideations. Pt is onboard with starting medication. Pt states has small bouts of anxiety more depressive state. Pt to be startedon Celexa. Reviewed risks and side effects. Rx for Celexa faxed to pharmacy. Pt voiced understanding. Today's telehealth visit consisted of spending 10 minutes talking to patient on the phone. Documented by Alpa Bentley LPN on behalf of: Zachery Fontana DO documented in this encounterNOMS Healthcare Evaluation note Note Date & TypeNoteFacilityEvaluation note* Diagnosis anxiety depression (CMS/HCC) Mental disorders of mother, complicating , childbirth, or the puerperium, unspecified as to episode of care documented in this encounter [facility] Summary Purpose Family History No Family History Records FoundNo Family History Records FoundNo Family History Records Found Advance Directives No Advanced Directives Records FoundNo Advanced Directives Records FoundNo Advanced Directives Records Found Additional Source Comments INFORMATION SOURCE (unrecogn ized section and content) DATE CREATED AUTHOR 07/30/2019 [facility] DATE CREATED AUTHOR AUTHOR'S ORGANIZ ATION 01/04/2024 [facility] DATE CREATED AUTHOR AUTHOR'S ORGANIZ ATION 02/23/2024 [facility] Reason for Visit (unrecogniz ed section and content) ReasonCommentsTelehealthPostpartum depression FOR RECORDS PERTAINING TO PATIENTS WHO ARE [...] BE BASED ON THE PRIMARY CLINICAL RECORDS. [employer] provides no warranty or guarantee of the accuracy or completeness of information in this document.
--- NOTE | 2025-09-14 13:21 | ED_ITS ---
Documented by User: BERNARD Rivera 09/14/25 16:43 HPI HPI - General Adult General Chief complaint: Skin/Abscess/Foreign Body Stated complaint: LUMP/BUMP-TAILBONE Time Seen by Provider: 09/14/25 12:26 Source: patient Mode of arrival: ambulance Limitations: no limitations History of Present Illness HPI narrative: 30-year-old female presents emergency department with complaints of about a week of sacral coccyx area discomfort that has been worsening and a lump appeared just yesterday. She has a history of pilonidal cyst and has had incision and drainage x 2. She saw a general surgeon the first time she had it who did not recommend surgical removal. It has been 3 years since her last I&D. She denies any fever, night sweats, or chills. Related Data Home Medications ?Medication ?Instructions ?Recorded ?Confirmed citalopram 20 mg tablet mg 09/14/25 Previous Rx's ?Medication ?Instructions ?Recorded cephalexin 500 mg capsule 500 mg PO Q8H 7 days #21 cap s 09/14/25 naproxen 500 mg tablet 500 mg PO BID PRN pain #20 t abs 09/14/25 sulfamethoxazole 800 1 tab PO Q12H 7 days #14 tab s 09/14/25 mg-trimethoprim 160 mg tablet (Bactrim DS) Allergies Allergy/AdvReac Type Severity Reaction Status Date / Time No Known Drug Allergies Allergy Verified 09/14/25 12:21 Opioid HPI Opioid Management Most Recent Opioid Data: Last Pain Scale 8 Today, 12:22 Review of Systems ROS Status of ROS 10 or more systems reviewed and unremark able except as noted in history and below PFSH PFSH Social History Little interest or pleasure in doing things: not at all Feeling down, depressed, or hopeless: not at all Exam Narrative Exam Narrative: General: No distress, age-appropriate Skin: Warm, dry, no pallor. No rash. Approximate 2 x 2 cm area of swollen mild erythema in the sacrococcygeal region above the gluteal cleft. Tender with palpation, mostly indurated, no fluctuance easily palpated. Head: Normocephalic, atraumatic. Neck: Supple, non-tender. Eye: Pupils are equal, round and EOMI. No scleral icterus. Ears, Nose, Mouth, and Throat: No nasal mucosal hypertrophy. Oral mucosa is moist, no posterior oropharynx erythema, uvula is mid-line Cardiovascular: Regular Rate and Rhythm without murmur, gallop or rub. Respiratory: No accessory muscle use or respiratory distress. Back: No midline thoracic or lumbar vertebral tenderness. Musculoskeletal: Full ROM of all extremities, no calf or popliteal tenderness Neurological: A&O x4. No cranial nerve dysfunction observed. No truncal ataxia. Moves all extremities. Sensation intact. Psychiatric: Cooperative and interactive. Normal mood and affect. Constitutional Vital Signs, click to edit/add: Last Vital Signs Temp 98.7 F 09/14/25 12:22 Pulse 85 09/14/25 12:22 Resp 18 09/14/25 12:22 BP 123/56 09/14/25 12:22 Pulse Ox 95 09/14/25 12:22 Documenting provider has reviewed patient's vital signs: yes Course Vital Signs Vital signs: Vital Signs Temperature 98.7 F 09/14/25 12:22 Pulse Rate 85 09/14/25 12:22 Respiratory Rate 18 09/14/25 12:22 Blood Pressure 123/56 09/14/25 12:22 Pulse Oximetry 95 09/14/25 12:22 Temperature 98.7 F 09/14/25 12:22 Pulse Rate 85 09/14/25 12:22 Respiratory Rate 18 09/14/25 12:22 Blood Pressure 123/56 09/14/25 12:22 Pulse Oximetry 95 09/14/25 12:22 Medical Decision Making [facility] Narrative Medical decision making narrative: 30-year-old female with a history of recurrent pilonidal cysts presents with 1 week of progressively worsening sacrococcygeal discomfort and new lump formation that appeared yesterday. No systemic signs of infection such as fever, chills, or lymphadenopathy are present. Given her history and physical findings, the most likely diagnosis is a recurrent pilonidal abscess. On exam, there is a 2 ? 1.5 ? 1 cm tender, erythematous mass in the sacrococcygeal region that mostly feels indurated. On POCUS there appears to be a pocket of fluid and risks and benefits of aspiration was discussed with patient and she wished to proceed. Patient seen in conjunction with Dr Sanz who performed I& D. Patient underwent incision and drainage in the ED with appropriate local anesthetic. Approximately 10 cc of purulent fluid was able to be aspirated. Given risk for MRSA and common skin rika, oral antibiotics were prescribed for post-procedure coverage: Cephalexin 500 mg orally every 6 hours for 7 days and Bactrim DS 1 tablet orally twice daily for 7 days. Naproxen 500 mg twice daily given for inflammation and pain control. Patient was instructed on wound care, signs of worsening infection, and to follow up with general surgery for consideration of definitive excision to prevent recurrence. Patient was discharged in stable condition with plan for PCP and General Surgery follow-up. Differential Diagnosis Differential Diagnosis: Pilonidal cyst/abscess, sebaceous cyst, abscess from other cause Discharge Plan Discharge Chief Complaint: Skin/Abscess/Foreign Body Clinical Impression: Pilonidal abscess Patient Disposition: Home, Self-Care Time of Disposition Decision: 13:20 Condition: Good Mode of Transportation: Private Vehicle Prescriptions / Home Meds: New cephalexin 500 mg capsule 500 mg PO Q8H 7 Days Qty: 21 0RF sulfamethoxazole-trimethoprim [Bactrim DS] 800-160 mg tablet 1 tab PO Q12H 7 Days Qty: 14 0RF naproxen 500 mg tablet 500 mg PO BID PRN (Reason: pain) Qty: 20 0RF No Action citalopram 20 mg tablet Print Language: Yi Instructions: Pilonidal Cyst ([place]), Sitz Bath ([place]) Referrals: General Surgeon [Other] - As needed Referral Note: Consult for pilonidal cyst removal. Shamir Morrow MD [Primary Care Provider, Family Practice] - 1 week Discharge Date/Time: 09/14/25 13:32 Documented by User: Romana Sanz MD 09/14/25 17:38 HPI HPI - General Adult General Chief complaint: Skin/Abscess/Foreign Body Stated complaint: LUMP/BUMP-TAILBONE Time Seen by Provider: 09/14/25 12:26 Related Data Home Medications ?Medication ?Instructions ?Recorded ?Confirmed citalopram 20 mg tablet mg 09/14/25 Previous Rx's ?Medication ?Instructions ?Recorded cephalexin 500 mg capsule 500 mg PO Q8H 7 days #21 cap s 09/14/25 naproxen 500 mg tablet 500 mg PO BID PRN pain #20 t abs 09/14/25 sulfamethoxazole 800 1 tab PO Q12H 7 days #14 tab s 09/14/25 mg-trimethoprim 160 mg tablet (Bactrim DS) Allergies Allergy/AdvReac Type Severity Reaction Status Date / Time No Known Drug Allergies Allergy Verified 09/14/25 12:21 Opioid HPI Opioid Management Most Recent Opioid Data: Last Pain Scale 8 Today, 12:22 PFSH PFSH Social History Little interest or pleasure in doing things: not at all Feeling down, depressed, or hopeless: not at all Exam Constitutional Vital Signs, click to edit/add: Last Vital Signs Temp 98.7 F 09/14/25 12:22 Pulse 85 09/14/25 12:22 Resp 18 09/14/25 12:22 BP 123/56 09/14/25 12:22 Pulse Ox 95 09/14/25 12:22 Course Vital Signs Vital signs: Vital Signs Temperature 98.7 F 09/14/25 12:22 Pulse Rate 85 09/14/25 12:22 Respiratory Rate 18 09/14/25 12:22 Blood Pressure 123/56 09/14/25 12:22 Pulse Oximetry 95 09/14/25 12:22 Temperature 98.7 F 09/14/25 12:22 Pulse Rate 85 09/14/25 12:22 Respiratory Rate 18 09/14/25 12:22 Blood Pressure 123/56 09/14/25 12:22 Pulse Oximetry 95 09/14/25 12:22 Medical Decision Making [facility] Narrative Medical decision making narrative: 30-year-old female with a history of recurrent pilonidal cysts presents with 1 week of progressively worsening sacrococcygeal discomfort and new lump formation that appeared yesterday. No systemic signs of infection such as fever, chills, or lymphadenopathy are present. Given her history and physical findings, the most likely diagnosis is a recurrent pilonidal abscess. On exam, there is a 2 ? 1.5 ? 1 cm tender, erythematous mass in the sacrococcygeal region that mostly feels indurated. On POCUS there appears to be a pocket of fluid and risks and benefits of aspiration was discussed with patient and she wished to proceed. Patient seen in conjunction with Dr Sanz who performed I& D. Patient underwent incision and drainage in the ED with appropriate local anesthetic. Approximately 10 cc of purulent fluid was able to be aspirated. Given risk for MRSA and common skin rika, oral antibiotics were prescribed for post-procedure coverage: Cephalexin 500 mg orally every 6 hours for 7 days and Bactrim DS 1 tab let orally twice daily for 7 days. Naproxen 500 mg twice daily given for inflammation and pain control. Patient was instructed on wound care, signs of worsening infection, and to follow up with general surgery for consideration of definitive excision to prevent recurrence. Patient was discharged in stable condition with plan for PCP and General Surgery follow-up. procedure note : Using ultrasound after locating the plate and the the cyst the area was cleaned with Betadine after which the patient had a infiltration of the area with 1% lidocaine almost 10 cc, then using the ultrasound aspiration of almost 10 cc of fluid from the cyst was done at the bedside Culture was sent and the patient was feeling better tolerated the procedure Discharge Plan Discharge Chief Complaint: Skin/Abscess/Foreign Body Clinical Impression: Pilonidal abscess Patient Disposition: Home, Self-Care Time of Disposition Decision: 13:20 Condition: Good Mode of Transportation: Private Vehicle Prescriptions / Home Meds: New cephalexin 500 mg capsule 500 mg PO Q8H 7 Days Qty: 21 0RF sulfamethoxazole-trimethoprim [Bactrim DS] 800-160 mg tablet 1 tab PO Q12H 7 Days Qty: 14 0RF naproxen 500 mg tablet 500 mg PO BID PRN (Reason: pain) Qty: 20 0RF No Action citalopram 20 mg tablet Print Language: Yi Instructions: Pilonidal Cyst (ED), Sitz Bath ([place]) Referrals: General Surgeon [Other] - As needed Referral Note: Consult for pilonidal cyst removal. Shamir Morrow MD [Primary Care Provider, Family Practice] - 1 week Discharge Date/Time: 09/14/25 13:32
== END 2025-09-14 13:32 | disposition home or self-care (01) ==
PROVIDERS: Emergency Provider Emergency Medicine; PCP Family Medicine
DX: L05.01 Pilonidal cyst with abscess (principal)
CPT/HCPCS: 10160; 87070; 87075; 99283; 99284